=== PATIENT | male | born 1985 | race Caucasian/White ===

== ENCOUNTER 2016-09-20 23:20 | Emergency (ER) | payer SELFPAY ==
[~2016-09-20] VITALS: Ht 175.3 cm; Wt 81.6 kg
[2016-09-20 23:20] VITALS: BP 152/70
[~2016-09-20 23:20] MED LIST: NKM
[2016-09-20 23:42] LABS: ABG BASE EXCESS -6.2; ABG PCO2 52.6 mmHg (35.0-45.0)
[2016-09-20 23:43] LABS: ABG ALLEN TEST POSITIVE
[2016-09-20 23:46] LABS: BASOPHILS % (AUTO) 1.3 % (0.0-2.0); EOSINOPHILS % (AUTO) 1.8 % (0.0-3.0); LYMPHOCYTES % (AUTO) 46.3 % (20.0-45.0); MEAN CORPUSCULAR HEMOGLOBIN 32.6 PG (27.0-31.0); MEAN CORPUSCULAR HGB CONC 33.3 G/DL (32.0-36.0); MEAN CORPUSCULAR VOLUME 98 FL (80-99); MEAN PLATELET VOLUME 5.6 FL (6.5-10.1); MONOCYTES % (AUTO) 8.9 % (1.0-10.0); NEUTROPHILS % (AUTO) 41.7 % (45.0-75.0); PLATELET COUNT 209 K/UL (150-450); RED BLOOD COUNT 4.59 M/UL (4.70-6.10); WHITE BLOOD COUNT 6.6 K/UL (4.8-10.8)
[2016-09-21 00:03] LABS: ACETAMINOPHEN < 10 ug/mL (10-30); ALANINE AMINOTRANSFERASE 216 U/L (3-41); ALCOHOL < 10 mg/dL; ANION GAP 20 (5-15); ASPARTATE AMINO TRANSFERASE 140 U/L (5-40); CALCIUM 8.6 mg/dL (8.6-10.2); CARBON DIOXIDE 20 mEQ/L (20-30); CHLORIDE 100 mEQ/L (98-107); CREATININE 1.3 mg/dL (0.7-1.2); GLOMERULAR FILTRATION RATE > 60 mL/min (>60); HEMOLYSIS 7; POTASSIUM 3.4 mEQ/L (3.4-4.9); SODIUM 140 mEQ/L (135-145)
[2016-09-21 00:20] VITALS: BP 111/68
[2016-09-21 01:20] VITALS: BP 107/65
--- NOTE | 2016-09-21 01:47 | Emergency Room Report ---
History of Present Illness General Chief Complaint: Altered Level of Consciousness Source: EMS Present Illness HPI 31-year-old male presents to ED for evaluation. Patient was found laying in an Alley. Unresponsive. Pupils were dilated. Patient had apneic breathing. Patient was given Narcan and woke up. Upon arrival patient is still lethargic but is more awake. Told EMS that he used methamphetamines and other drugs. Unclear whether patient hit his head. Patient is a known to provide any additional history at this time. No aggravating or relieving factors. Denies any other associated symptoms Allergies: Coded Allergies: UNABLE TO ASSESS (Unverified , 09/20/16) Patient History Past Medical History: none Past Surgical History: none Pertinent Family History: none Social History: Denies: alcohol use, drug use, smoking Immunizations: UTD Reviewed Nursing Documentation: PMH: Agreed, PSxH: Agreed Nursing Documentation-PMH Past Medical History Deferred: Patient Unconscious Review of Systems All Other Systems: limited Physical Exam Vital Signs Date Time Temp Pulse Resp B/P Pulse Ox O2 Delivery O2 Flow Rate FiO2 09/20/16 23:06 124 20 152/70 88 15.0 09/20/16 23:20 98.8 Non-Rebreather Sp02 EP Interpretation: reviewed, abnormal General Appearance: mild distress, lethargic Head: normocephalic Eyes: bilateral eye PERRL, bilateral eye normal inspection ENT: normal ENT inspection Neck: normal inspection Respiratory: chest non-tender, lungs clear, normal breath sounds, speaking full sentences Cardiovascular #1: no edema, tachycardia Gastrointestinal: normal inspection Rectal: deferred Genitourinary: no CVA tenderness Musculoskeletal: normal inspection Neurologic: other - lethargic Psychiatric: other - lethargic Skin: normal inspection Lymphatic: normal inspection Medical Decision Making Diagnostic Impression: Primary Impression: Altered level of consciousness Additional Impression: Substance abuse ER Course Hospital Course 31-year-old M presents to ED with altered mental status. improved after narcan Differential diagnoses include: Psychosis, EtOH, drug abuse Clinical course patient placed on stretcher. 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 After initial history and physical ordered labs, NRB, IV fluids, EKG, CT brain. Labs reviewed-electrolytes okay, no leukocytosis, hemoglobin/hematocrit stable, tox panel + for multilple substances CT brain shows no acute pathology Patient observed on monitor. O2 saturations improving. switched to nasal cannula with improved O2 saturation. Patient allowed to sleep. Patient is now more awake alert oriented. can be discharged to home i. I feel this is a highly complex case requiring extensive working including EKG/Rhythm strip, Xray/CT/US, Blood/urine lab work, repeat exams while in ED, and administration of strong opiates/narcotics for pain control, admission to hospital or close patient follow up. Diagnosis -ALOC, substance abuse Stable and discharged to home. Followup with PMD. Return to ED if symptoms recur or worsen Labs Test 09/20/16 23:30 09/20/16 23:35 Arterial Blood pH 7.234 (7.350-7.450) Arterial Blood Partial Pressure CO2 52.6 mmHg (35.0-45.0) Arterial Blood Partial Pressure O2 < 64.0 mmHg (75.0-100.0) Arterial Blood HCO3 21.7 mmol/L (22.0-26.0) Arterial Blood Oxygen Saturation 74.3 % (92.0-98.0) Arterial Blood Base Excess -6.2 Justino Test Positive White Blood Count 6.6 K/UL (4.8-10.8) Red Blood Count 4.59 M/UL (4.70-6.10) Hemoglobin 15.0 G/DL (14.2-18.0) Hematocrit 44.9 % (42.0-52.0) Mean Corpuscular Volume 98 FL (80-99) Mean Corpuscular Hemoglobin 32.6 PG (27.0-31.0) Mean Corpuscular Hemoglobin Concent 33.3 G/DL (32.0-36.0) Red Cell Distribution Width 12.0 % (11.6-14.8) Platelet Count 209 K/UL (150-450) Mean Platelet Volume 5.6 FL (6.5-10.1) Neutrophils (%) (Auto) 41.7 % (45.0-75.0) Lymphocytes (%) (Auto) 46.3 % (20.0-45.0) Monocytes (%) (Auto) 8.9 % (1.0-10.0) Eosinophils (%) (Auto) 1.8 % (0.0-3.0) Basophils (%) (Auto) 1.3 % (0.0-2.0) Sodium Level 140 mEQ/L (135-145) Potassium Level 3.4 mEQ/L (3.4-4.9) Chloride Level 100 mEQ/L (98-107) Carbon Dioxide Level 20 mEQ/L (20-30) Anion Gap 20 (5-15) Blood Urea Nitrogen 11 mg/dL (7-23) Creatinine 1.3 mg/dL (0.7-1.2) Estimat Glomerular Filtration Rate > 60 mL/min (>60) Glucose Level 309 mg/dL (74-106) Calcium Level 8.6 mg/dL (8.6-10.2) Total Bilirubin 0.4 mg/dL (0.0-1.2) Aspartate Amino Transf (AST/SGOT) 140 U/L (5-40) Alanine Aminotransferase (ALT/SGPT) 216 U/L (3-41) Alkaline Phosphatase 60 U/L (40-129) Total Protein 8.0 g/dL (6.6-8.7) Albumin 4.1 g/dL (3.5-5.2) Globulin 3.9 g/dL Albumin/Globulin Ratio 1.0 (1.0-2.7) Salicylates Level < 1 mg/dL (10-30) Urine Opiates Screen Positive (NEGATIVE) Acetaminophen Level < 10 ug/mL (10-30) Urine Barbiturates Screen Negative (NEGATIVE) Phencyclidine (PCP) Screen Negative (NEGATIVE) Urine Amphetamines Screen Positive (NEGATIVE) Urine Benzodiazepines Screen Negative (NEGATIVE) Urine Cocaine Screen Negative (NEGATIVE) Urine Marijuana (THC) Screen Negative (NEGATIVE) Serum Alcohol < 10 mg/dL CT/MRI/US Diagnostic Results CT/MRI/US Diagnostic Results : Imaging Test Ordered: CT Head Impression no acute process Last Vital Signs Date Time Temp Pulse Resp B/P Pulse Ox O2 Delivery O2 Flow Rate FiO2 09/20/16 23:20 98.8 118 20 152/70 88 Non-Rebreather 15.0 Status: improved Disposition: HOME, SELF-CARE Condition: Stable Referrals: NOT CHOSEN HOWIE/,REFERRING (PCP) ODE POE M.D. Sep 21, 2016 01:47
[2016-09-21 02:20] VITALS: BP 116/68
[2016-09-21 04:20] VITALS: BP 110/60
[2016-09-21 06:20] VITALS: BP 116/64
[2016-09-21 06:37] VITALS: BP 116/64
--- NOTE | 2016-09-21 09:55 | Diagnostic Imaging Report ---
Indication: Altered mental status Technique: Contiguous 5 mm thick transaxial imaging of the head obtained in a Siemens Sensation [address] scanner. Soft tissue and bone windows generated. Total Dose length Product (DLP): [address] Dose Index Volume (CTDIvol): 70.38 mGy Comparison: none Findings: The size and configuration of the cortical sulci, basal cisterns, and ventricles are within normal limits for age. There is no mass effect, midline shift, or edema identified. There is no evidence of acute hemorrhage or abnormal intra-axial or extra-axial fluid collections. The bones and soft tissues are unremarkable. Impression: No mass effect, edema or acute bleed. [facility] has communicated the preliminary results to the Emergency Department. Their findings are largely concordant with this report. The CT scanner at [facility] is accredited by the [employer] and the scans are performed using dose optimization techniques as appropriate to a performed exam including Automatic Exposure control.
== END 2016-09-21 06:37 | disposition home or self-care (01) ==
LOC: EDBD 23:20 → EMR 23:35
DX: R41.82 Altered mental status, unspecified (principal); F19.10 Other psychoactive substance abuse, uncomplicated
CPT/HCPCS: 36415; 36600; 70450; 80053; 80300; 82803; 85025; 96360; 99284; G0480; 80329

== ENCOUNTER 2017-01-28 02:05 | Inpatient (IN) | payer SELFPAY ==
[2017-01-28] VITALS (20 sets, daily range): BP systolic 77–109; BP diastolic 33–68
[~2017-01-28] VITALS: Ht 182.9 cm; Wt 81.6 kg
[2017-01-28] MEDS ORDERED: LORazepam Inj 2mg/ml 1ml IM ONE (02:15)
[2017-01-28] MEDS ORDERED: Haloperidol 5mg/ml Inj IM ONE (03:30)
[2017-01-28 08:20] LABS: MEAN CORPUSCULAR HEMOGLOBIN 31.6 PG (27.0-31.0); MEAN CORPUSCULAR VOLUME 93 FL (80-99); MEAN PLATELET VOLUME 6.4 FL (6.5-10.1); PLATELET COUNT 126 K/UL (150-450); RED BLOOD COUNT 4.05 M/UL (4.70-6.10); RED CELL DISTRIBUTION WIDTH 11.9 % (11.6-14.8); WHITE BLOOD COUNT 5.2 K/UL (4.8-10.8)
[2017-01-28] MEDS ORDERED: UNOBMED (08:22)
[2017-01-28 08:29] LABS: ANION GAP 10 mmol/L (5-15); CALCIUM 8.4 MG/DL (8.5-10.1); CARBON DIOXIDE 22 MMOL/L (21-32); CHLORIDE 106 MMOL/L (98-107); CREATININE 2.3 MG/DL (0.55-1.30); GLOMERULAR FILTRATION RATE 33.6 mL/min (>60); POTASSIUM 3.4 MMOL/L (3.5-5.1); SODIUM 138 MMOL/L (136-145)
[2017-01-28 08:39] LABS: ALANINE AMINOTRANSFERASE 486 U/L (12-78); ALBUMIN/GLOBULIN RATIO 0.9 (1.0-2.7); ASPARTATE AMINO TRANSFERASE 587 U/L (15-37); TOTAL PROTEIN 7.4 G/DL (6.4-8.2)
[2017-01-28 08:41] LABS: BILIRUBIN,DIRECT 1.2 MG/DL (0.0-0.3)
[2017-01-28 08:42] LABS: BAND NEUTROPHILS % (MANUAL) 10 % (0-8); LYMPHOCYTES % (MANUAL) 5 % (20-45); NEUTROPHILS % (MANUAL) 83 % (45-75); TOTAL CELLS COUNTED 100
[2017-01-28 08:43] LABS: BASOPHILS % (MANUAL) 0 % (0-2); EOSINOPHILS % (MANUAL) 0 % (0-3); PLATELET ESTIMATE DECREASED; PLATELET MORPHOLOGY NORMAL
--- NOTE | 2017-01-28 08:59 | Diagnostic Imaging Report ---
Indication: AMS Technique: Continuous helical CT scanning of the head was performed without intravenous contrast material. Axial and coronal 5 mm sections were generated. Dose: Total Dose Length Product - DLP [address] Dose Index - CTDIvol(s) 70.38 mGy. Automated exposure control was utilized for dose reduction. Comparison:09/21/2016 Findings: Study is degraded by motion. The ventricular system is normal in size and configuration. There is no shift of midline structures. No abnormal extra-axial fluid collections are noted. There is no evidence of intracerebral bleeding. No other abnormal high or low density areas are noted within the brain. There is a mucoperiosteal thickening in the right maxillary sinus. Impression: Inflammatory change in the right maxillary sinus. Otherwise negative CT scan of the head without contrast material. The CT scanner at [facility] is accredited by the [employer] and the scans are performed using protocols designed to limit radiation exposure to as low as reasonably achievable to attain images of sufficient resolution adequate for diagnostic evaluation.
[2017-01-28 10:08] LABS: APPEARANCE,URINE SLIGHTLY CLOUDY; KETONES,URINE NEGATIVE (NEGATIVE); LEUKOCYTE ESTERASE ,URINE NEGATIVE (NEGATIVE); NITRITE,URINE NEGATIVE (NEGATIVE); PH,URINE 5 (4.5-8.0); PROTEIN,URINE 3+ (NEGATIVE); UROBILINOGEN,URINE NORMAL MG/DL (0.0-1.0)
[2017-01-28 10:10] LABS: ALCOHOL < 3 mg/dL
[2017-01-28 10:28] LABS: AMORPHOUS SEDIMENT,UR MANY /LPF; BACTERIA,URINE FEW /HPF; SQUAMOUS EPITHELIAL CELL,UR OCCASIONAL /LPF (NONE/OCC)
[2017-01-28 11:24] LABS: OSMOLALITY SERUM 298 mOsm/kg (297-317)
--- NOTE | 2017-01-28 11:31 | Diagnostic Imaging Report ---
Indication: Abdominal pain Technique: Continuous helical scanning was performed without any contrast material from the diaphragms through the pelvis due to elevated creatinine. Axial, sagittal, and coronal images were generated. Dose: Total Dose Length Product - DLP [address] Dose Index - CTDIvol(s) 11.36 mGy. Automated exposure control was utilized for dose reduction. Comparison: None Findings: The liver is unremarkable. The spleen is enlarged. The gallbladder is surgically absent. The pancreas is grossly normal. The right adrenal gland appears prominent but difficult to evaluate due to lack of contrast. Left adrenal gland is grossly normal. The kidneys are unremarkable. There are no calculi in the kidneys. Aorta and inferior vena cava are normal caliber. There is some increased density in the pericolonic fat on the right. There appears to be some thickening of the wall the colon and the sigmoid. However, the colon is not distended. The bladder is unremarkable. Prostate and seminal vesicles are normal. No gross fluid collections. The appendix is not identified. There is basilar atelectasis. Impression: Lack of any contrast material considerably limits evaluation in this patient. Possible thickening of the colonic wall versus underdistention in the region of the sigmoid colon. Inflammatory disease is not excluded. Increased density in pericolonic fat in the right side of the abdomen. This could represent inflammatory change but this is not certain. Previous cholecystectomy. Splenomegaly. Basilar atelectasis. The CT scanner at [facility] is accredited by the [employer] and the scans are performed using protocols designed to limit radiation exposure to as low as reasonably achievable to attain images of sufficient resolution adequate for diagnostic evaluation.
--- NOTE | 2017-01-28 14:21 | Pulmonolgy Critical Care Note ---
Critical Care - Asmt/Plan Problems: (1) Acute encephalopathy (2) Rhabdomyolysis (3) Renal failure Assessment/Plan: iv fluids check electrolytes renal w/u ICD monitoring check cpk dvt prophylaxis stress ulcer prophylaxis Critical Care - Objective Last 24 Hour Vital Signs Date Time Temp Pulse Resp B/P (MAP) Pulse Ox O2 Delivery O2 Flow Rate FiO2 01/28/17 14:00 93 23 87/43 98 Room Air 01/28/17 13:14 89 01/28/17 13:00 97.9 93 26 109/68 98 Room Air 01/28/17 12:49 91 16 83/46 98 Room Air 01/28/17 12:00 98.8 91 21 82/54 98 Room Air 01/28/17 11:00 99.2 93 25 86/42 97 Room Air 01/28/17 10:19 98.3 99 22 93/39 100 Room Air 01/28/17 09:00 98.0 103 26 96/46 97 Room Air 01/28/17 08:00 98.1 98 24 92/36 98 Room Air 01/28/17 07:10 100 26 Room Air 01/28/17 07:10 97.9 100 26 86/46 97 Room Air 01/28/17 06:28 104 22 103/51 99 Room Air 01/28/17 04:28 118 19 106/56 98 Room Air 01/28/17 02:28 100.0 124 20 92/54 98 Room Air 01/28/17 02:02 100.0 124 20 92/54 98 Room Air Status: obtunded Condition: critical HEENT: atraumatic Lungs: clear Abdomen: non-tender, feeding tube Extremities: no C/C/E Accucheck: 142 Critical Care - Subjective ROS Limited/Unobtainable: Yes ICU Day: 1 Interval Events: Seen in ER, obtunded, looks comfortable I&O: Intake and Output 01/28/17 01/29/17 19:00 07:00 Intake Total 2150 ml Balance 2150 ml Intake Oral 0 ml IV Total 2150 ml Labs: Laboratory Tests Test 01/28/17 08:00 01/28/17 09:25 01/28/17 09:42 White Blood Count 5.2 K/UL (4.8-10.8) Red Blood Count 4.05 M/UL (4.70-6.10) L Hemoglobin 12.8 G/DL (14.2-18.0) L Hematocrit 37.7 % (42.0-52.0) L Mean Corpuscular Volume 93 FL (80-99) Mean Corpuscular Hemoglobin 31.6 PG (27.0-31.0) H Mean Corpuscular Hemoglobin Concent 34.0 G/DL (32.0-36.0) Red Cell Distribution Width 11.9 % (11.6-14.8) Platelet Count 126 K/UL (150-450) L Mean Platelet Volume 6.4 FL (6.5-10.1) L Neutrophils (%) (Auto) % (45.0-75.0) Lymphocytes (%) (Auto) % (20.0-45.0) Monocytes (%) (Auto) % (1.0-10.0) Eosinophils (%) (Auto) % (0.0-3.0) Basophils (%) (Auto) % (0.0-2.0) Differential Total Cells Counted 100 Neutrophils % (Manual) 83 % (45-75) H Lymphocytes % (Manual) 5 % (20-45) L Monocytes % (Manual) 2 % (1-10) Eosinophils % (Manual) 0 % (0-3) Basophils % (Manual) 0 % (0-2) Band Neutrophils 10 % (0-8) H Platelet Estimate Decreased L Platelet Morphology Normal Sodium Level 138 MMOL/L (136-145) Potassium Level 3.4 MMOL/L (3.5-5.1) L Chloride Level 106 MMOL/L (98-107) Carbon Dioxide Level 22 MMOL/L (21-32) Anion Gap 10 mmol/L (5-15) Blood Urea Nitrogen 32 mg/dL (7-18) H Creatinine 2.3 MG/DL (0.55-1.30) H Estimat Glomerular Filtration Rate 33.6 mL/min (>60) Glucose Level 118 MG/DL (74-106) H Osmolality 298 mOsm/kg (297-317) Calcium Level 8.4 MG/DL (8.5-10.1) L Total Bilirubin 1.8 MG/DL (0.2-1.0) H Direct Bilirubin 1.2 MG/DL (0.0-0.3) H Aspartate Amino Transf (AST/SGOT) 587 U/L (15-37) H Alanine Aminotransferase (ALT/SGPT) 486 U/L (12-78) H Alkaline Phosphatase 96 U/L (46-116) Total Creatine Kinase 548 U/L (26-308) H Troponin I 0.007 ng/mL (0.000-0.056) Total Protein 7.4 G/DL (6.4-8.2) Albumin 3.4 G/DL (3.4-5.0) Globulin 4.0 g/dL Albumin/Globulin Ratio 0.9 (1.0-2.7) L Serum Alcohol < 3 mg/dL Acetone Level Negative (NEGATIVE) Lactic Acid Level 1.30 mmol/L (0.66-2.22) Urine Color Yellow Urine Appearance Slightly cloudy Urine pH 5 (4.5-8.0) Urine Specific [place] 1.025 (1.005-1.035) Urine Protein 3+ (NEGATIVE) H Urine Glucose (UA) Negative (NEGATIVE) Urine Ketones Negative (NEGATIVE) Urine Occult Blood 1+ (NEGATIVE) H Urine Nitrite Negative (NEGATIVE) Urine Bilirubin Negative (NEGATIVE) Urine Urobilinogen Normal MG/DL (0.0-1.0) Urine Leukocyte Esterase Negative (NEGATIVE) Urine RBC 2-4 /HPF (0 - 0) H Urine WBC 2-4 /HPF (0 - 0) Urine Squamous Epithelial Cells Occasional /LPF Urine Amorphous Sediment Many /LPF (NONE) H Urine Bacteria Few /HPF (NONE) Urine Opiates Screen Negative (NEGATIVE) Urine Barbiturates Screen Negative (NEGATIVE) Phencyclidine (PCP) Screen Negative (NEGATIVE) Urine Amphetamines Screen Positive (NEGATIVE) H Urine Benzodiazepines Screen Negative (NEGATIVE) Urine Cocaine Screen Negative (NEGATIVE) Urine Marijuana (THC) Screen Negative (NEGATIVE) NAYELY MCMULLEN Jan 28, 2017 14:21
[2017-01-28] MEDS: Pantoprazole Inj IV SCH (14:46)
[2017-01-28] MEDS ORDERED: Tubing IV Secondary IV ONE (15:50)
--- NOTE | 2017-01-28 16:15 | History and Physical Report ---
DATE OF ADMISSION: 01/28/2017 CHIEF COMPLAINT: The patient is a 31-year-old white male, who presents with chief complaint of altered mental status. HISTORY OF PRESENT ILLNESS: Most of the history and physical is obtained from the patient's chart as the patient is barely arousable. According to notes from the emergency room, the patient was found in [place] in the [place]. The patient was fairly lethargic. The patient was transferred to [facility]. The patient was found to have elevated CPK. The patient was found to be in renal failure. The patient was admitted for renal failure and rhabdomyolysis. REVIEW OF SYSTEMS: Unable to assess secondary to patient's mental status. PAST MEDICAL HISTORY: Unknown. PAST SURGICAL HISTORY: Significant for cholecystectomy by CT of the abdomen. CURRENT MEDICATIONS: Unknown. ALLERGIES: Penicillin. SOCIAL HISTORY: Unknown. PHYSICAL EXAMINATION: VITAL SIGNS: Temperature 98.0 to 99.2, respirations tachypneic at 16 to 26, pulse tachycardic at 91 to 103, blood pressure hypotensive at 82 to 96/39 to 54. GENERAL: The patient is well developed, disheveled, filthy, white male, in no apparent distress. The patient is lethargic, but arousable. HEENT: Eyes, pupils are equal and responsive to light and accommodation. Extraocular movements are intact. NECK: Supple without lymphadenopathy. CHEST: Lungs are clear to auscultation bilaterally without wheezes or rales. CARDIOVASCULAR: Tachycardic, regular rhythm with S1 and S2 normal without murmurs, rubs, or gallops. ABDOMEN: Soft, nontender, nondistended. Positive bowel sounds. No evidence of hepatosplenomegaly. EXTREMITIES: Negative for clubbing, cyanosis, or edema. RECTAL/GENITAL: Not performed. NEUROLOGIC: Cranial nerves II through XII are grossly intact without focal deficits. LABORATORY STUDIES: WBC 5.2, hemoglobin 12.8, hematocrit 37.7, platelets 126,000. Sodium 138, potassium decreased to 3.4, chloride 106, CO2 22, BUN 32, creatinine 2.3, glucose 118. Liver function tests elevated with AST of 587, ALT of 486, alkaline phosphatase normal at 96, total CPK elevated at 548. CT scan of the abdomen revealed thickening of sigmoid colon consistent with colitis. An EKG was reported as normal sinus rhythm at approximately 100 beats per minute. No ST changes or Q-waves were noted. Urine drug scree is positive for methamphetamine. ASSESSMENT: This is a 31-year-old white male with, 1. Altered mental status. 2. Dehydration. 3. Rhabdomyolysis. 4. Renal failure. 5. Elevated liver function test. 6. Methamphetamine abuse. TREATMENT: 1. Altered mental status. This may be secondary to severe dehydration versus methamphetamine abuse. A Psychiatric consultation will be obtained with Dr. Cabrera. 2. Dehydration/rhabdomyolysis/renal failure. A Nephrology consultation will be obtained Dr. Antonio Rothman. The patient is currently receiving intravenous fluids. The patient received 3 L of normal saline in the emergency room. Serial CPK levels will be performed. 3. Elevated liver function tests. This may be secondary to hepatitis, and the patient appears to use methamphetamine intravenously. A Gastroenterology consultation has been obtained with Dr. Stevenson Plata. 4. Methamphetamine dependence. A Psychiatric consultation will be obtained with Dr. Cabrera. Suhail Manzo M.D. DR: Earnest JOB#: [id number] CC:
[2017-01-28 17:03] LABS: ANION GAP 13 mmol/L (5-15); CALCIUM 7.4 MG/DL (8.5-10.1); CARBON DIOXIDE 20 MMOL/L (21-32); CHLORIDE 108 MMOL/L (98-107); GLOMERULAR FILTRATION RATE 39.4 mL/min (>60); LACTATE DEHYDROGENASE 391 U/L (81-234); POTASSIUM 4.1 MMOL/L (3.5-5.1); SODIUM 141 MMOL/L (136-145)
--- NOTE | 2017-01-28 17:16 | Emergency Room Report ---
History of Present Illness General Chief Complaint: Substance Abuse Source: Patient, Medical Record Present Illness HPI The patient is a 31-year-old male brought in by EMS after altered mental status. Patient was noted to have been somewhat agitated. Patient had prior history of substance abuse. He is markedly limited by patient's mental status. The patient was noted to have been seen by Dr La. See Dr. 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 Review of Systems All Other Systems: negative except mentioned in HPI Physical Exam Vital Signs Date Time Temp Pulse Resp B/P (MAP) Pulse Ox O2 Delivery O2 Flow Rate FiO2 01/28/17 02:02 100.0 124 20 92/54 98 Room Air General Appearance: alert, mild distress ENT: dry mucus membranes Neck: full range of motion Respiratory: lungs clear, other - Kussmaul respirations Cardiovascular #1: regular rate, rhythm Gastrointestinal: normal bowel sounds, non tender, no mass Musculoskeletal: normal inspection, back normal Neurologic: other - somnolent, motor weakness Medical Decision Making Diagnostic Impression: Primary Impression: Acute kidney injury Additional Impression: Substance abuse ER Course The patient presented for altered mental status.Differential diagnosis included but was not limited to ischemic stroke, subarachnoid hemorrhage, hypoglycemia, spinal cord injury, neurodegenerative disorder, urinary tract infection, hypoxemia.. Because of complexity of patient's case laboratory testing and imaging studies were ordered. Laboratory testing was notable for elevated BUN and creatinine compared patient' s recent previous. The patient was noted to have evidence of acute the muscle injury. Patient started on IV fluids. The patient noted be consistently hypotensive.Dr. Samir [place] was contacted for inpatient management due to panel physician Labs Test 01/28/17 00:00 01/28/17 08:00 01/28/17 09:25 01/28/17 09:42 White Blood Count 5.2 K/UL (4.8-10.8) Red Blood Count 4.05 M/UL (4.70-6.10) Hemoglobin 12.8 G/DL (14.2-18.0) Hematocrit 37.7 % (42.0-52.0) Mean Corpuscular Volume 93 FL (80-99) Mean Corpuscular Hemoglobin 31.6 PG (27.0-31.0) Mean Corpuscular Hemoglobin Concent 34.0 G/DL (32.0-36.0) Red Cell Distribution Width 11.9 % (11.6-14.8) Platelet Count 126 K/UL (150-450) Mean Platelet Volume 6.4 FL (6.5-10.1) Neutrophils (%) (Auto) % (45.0-75.0) Lymphocytes (%) (Auto) % (20.0-45.0) Monocytes (%) (Auto) % (1.0-10.0) Eosinophils (%) (Auto) % (0.0-3.0) Basophils (%) (Auto) % (0.0-2.0) Differential Total Cells Counted 100 Neutrophils % (Manual) 83 % (45-75) Lymphocytes % (Manual) 5 % (20-45) Monocytes % (Manual) 2 % (1-10) Eosinophils % (Manual) 0 % (0-3) Basophils % (Manual) 0 % (0-2) Band Neutrophils 10 % (0-8) Platelet Estimate Decreased Platelet Morphology Normal Osmolality 298 mOsm/kg (297-317) Total Bilirubin 1.8 MG/DL (0.2-1.0) Direct Bilirubin 1.2 MG/DL (0.0-0.3) Aspartate Amino Transf (AST/SGOT) 587 U/L (15-37) Alanine Aminotransferase (ALT/SGPT) 486 U/L (12-78) Alkaline Phosphatase 96 U/L (46-116) Troponin I 0.007 ng/mL (0.000-0.056) Total Protein 7.4 G/DL (6.4-8.2) Albumin 3.4 G/DL (3.4-5.0) Globulin 4.0 g/dL Albumin/Globulin Ratio 0.9 (1.0-2.7) Serum Alcohol < 3 mg/dL Acetone Level Negative (NEGATIVE) Lactic Acid Level 1.30 mmol/L (0.66-2.22) Urine Color Yellow Urine Appearance Slightly cloudy Urine pH 5 (4.5-8.0) Urine Specific [place] 1.025 (1.005-1.035) Urine Protein 3+ (NEGATIVE) Urine Glucose (UA) Negative (NEGATIVE) Urine Ketones Negative (NEGATIVE) Urine Occult Blood 1+ (NEGATIVE) Urine Nitrite Negative (NEGATIVE) Urine Bilirubin Negative (NEGATIVE) Urine Urobilinogen Normal MG/DL (0.0-1.0) Urine Leukocyte Esterase Negative (NEGATIVE) Urine RBC 2-4 /HPF (0 - 0) Urine WBC 2-4 /HPF (0 - 0) Urine Squamous Epithelial Cells Occasional /LPF Urine Amorphous Sediment Many /LPF (NONE) Urine Bacteria Few /HPF (NONE) Urine Opiates Screen Negative (NEGATIVE) Urine Barbiturates Screen Negative (NEGATIVE) Phencyclidine (PCP) Screen Negative (NEGATIVE) Urine Amphetamines Screen Positive (NEGATIVE) Urine Benzodiazepines Screen Negative (NEGATIVE) Urine Cocaine Screen Negative (NEGATIVE) Urine Marijuana (THC) Screen Negative (NEGATIVE) Test 01/28/17 16:40 Sodium Level 141 MMOL/L (136-145) Potassium Level 4.1 MMOL/L (3.5-5.1) Chloride Level 108 MMOL/L (98-107) Carbon Dioxide Level 20 MMOL/L (21-32) Anion Gap 13 mmol/L (5-15) Blood Urea Nitrogen 38 mg/dL (7-18) Creatinine 2.0 MG/DL (0.55-1.30) Estimat Glomerular Filtration Rate 39.4 mL/min (>60) Glucose Level 101 MG/DL (74-106) Calcium Level 7.4 MG/DL (8.5-10.1) Lactate Dehydrogenase 391 U/L (81-234) HIV (1&2) Antibody Rapid Preliminary positive EKG Diagnostic Results Rate: normal Rhythm: NSR ST Segments: no acute changes Last Vital Signs Date Time Temp Pulse Resp B/P (MAP) Pulse Ox O2 Delivery O2 Flow Rate FiO2 01/28/17 16:00 97 01/28/17 16:00 98.9 23 81/34 98 Room Air Status: unchanged Disposition: ADMITTED INPATIENT Condition: Serious Referrals: NOT CHOSEN HOWIE/,REFERRING (PCP) Sridhar Fuller Jan 28, 2017 17:16
[2017-01-28 17:59] LABS: URIC ACID 8.5 MG/DL (2.6-7.2)
[2017-01-28] MEDS: Heparin 5000 units/ml inj SUBQ SCH (20:57)
[2017-01-28] MEDS: DOPamine 400mg/250ml 250 ML IV SCH (23:50)
[2017-01-29] VITALS (44 sets, daily range): BP systolic 84–115; BP diastolic 33–81
[2017-01-29 04:46] LABS: BASOPHILS % (AUTO) 0.4 % (0.0-2.0); EOSINOPHILS % (AUTO) 0.1 % (0.0-3.0); LYMPHOCYTES % (AUTO) 7.1 % (20.0-45.0); MEAN CORPUSCULAR HEMOGLOBIN 33.6 PG (27.0-31.0); MEAN CORPUSCULAR HGB CONC 35.8 G/DL (32.0-36.0); MEAN CORPUSCULAR VOLUME 94 FL (80-99); MEAN PLATELET VOLUME 6.3 FL (6.5-10.1); MONOCYTES % (AUTO) 7.7 % (1.0-10.0); NEUTROPHILS % (AUTO) 84.7 % (45.0-75.0); PLATELET COUNT 123 K/UL (150-450); RED BLOOD COUNT 3.47 M/UL (4.70-6.10); RED CELL DISTRIBUTION WIDTH 12.6 % (11.6-14.8); WHITE BLOOD COUNT 16.7 K/UL (4.8-10.8)
[2017-01-29 05:00] LABS: CRP QUANT 22.1 mg/dL (0.00-0.90); MAGNESIUM 1.5 MG/DL (1.8-2.4); PHOSPHORUS 2.4 MG/DL (2.5-4.9)
[2017-01-29 05:07] LABS: ALANINE AMINOTRANSFERASE 324 U/L (12-78); ALBUMIN/GLOBULIN RATIO 0.7 (1.0-2.7); ANION GAP 5 mmol/L (5-15); ASPARTATE AMINO TRANSFERASE 239 U/L (15-37); BILIRUBIN,DIRECT 0.3 MG/DL (0.0-0.3); CARBON DIOXIDE 22 MMOL/L (21-32); CHLORIDE 113 MMOL/L (98-107); CKMB 20.8 NG/ML (0.0-3.6); CREATININE 1.4 MG/DL (0.55-1.30); GLOMERULAR FILTRATION RATE 59.5 mL/min (>60); POTASSIUM 4.1 MMOL/L (3.5-5.1); SODIUM 140 MMOL/L (136-145); TOTAL PROTEIN 6.5 G/DL (6.4-8.2)
[2017-01-29 05:37] LABS: APPEARANCE,URINE CLEAR; KETONES,URINE NEGATIVE (NEGATIVE); LEUKOCYTE ESTERASE ,URINE 1+ (NEGATIVE); NITRITE,URINE NEGATIVE (NEGATIVE); PH,URINE 5 (4.5-8.0); PROTEIN,URINE 2+ (NEGATIVE); UROBILINOGEN,URINE 1 MG/DL (0.0-1.0)
[2017-01-29 05:52] LABS: BACTERIA,URINE FEW /HPF; COARSE GRANULAR CASTS,URINE 0-2 /LPF; FINE GRANULAR CASTS,URINE 0-2 /LPF; SQUAMOUS EPITHELIAL CELL,UR FEW /LPF (NONE/OCC)
--- NOTE | 2017-01-29 07:14 | General Progress Note ---
Assessment/Plan Problem List: (1) Elevated LFTs ICD Codes: R79.89 - Other specified abnormal findings of blood chemistry SNOMED: 488905125, 293048914 (2) Acute kidney injury ICD Codes: N17.9 - Acute kidney failure, unspecified SNOMED: 33015342 (3) Substance abuse ICD Codes: F19.10 - Other psychoactive substance abuse, uncomplicated SNOMED: 84089424 (4) Rhabdomyolysis ICD Codes: M62.82 - Rhabdomyolysis SNOMED: 797430014 Assessment/Plan supportive care fu labs fu LFTS fu nephrology Subjective ROS Limited/Unobtainable: No Allergies: Coded Allergies: PENICILLINS (Unverified Allergy, Unknown, 01/28/17) Objective Last 24 Hour Vital Signs Date Time Temp Pulse Resp B/P (MAP) Pulse Ox O2 Delivery O2 Flow Rate FiO2 01/29/17 07:00 95 29 103/50 97 Room Air 01/29/17 06:30 98 23 97/50 98 Room Air 01/29/17 06:15 94 23 94/49 98 Room Air 01/29/17 06:00 90 21 95/50 98 Room Air 01/29/17 05:45 91 20 106/44 98 Room Air 01/29/17 05:36 107/49 01/29/17 05:30 96 18 107/49 97 Room Air 01/29/17 05:15 96 18 98/45 97 Room Air 01/29/17 05:00 92 19 92/33 96 Room Air 01/29/17 05:00 92/33 01/29/17 04:45 95 21 105/43 97 Room Air 01/29/17 04:30 95 20 106/44 96 Room Air 01/29/17 04:15 93 20 100/45 95 Room Air 01/29/17 04:00 112/53 01/29/17 04:00 98 01/29/17 04:00 98.4 99 18 112/53 96 Room Air 01/29/17 03:45 94 18 101/39 95 Room Air 01/29/17 03:30 98 19 105/45 96 Room Air 01/29/17 03:15 100 19 90/54 95 Room Air 01/29/17 03:00 99 19 90/50 94 Room Air 01/29/17 03:00 90/50 01/29/17 02:45 103 17 106/47 97 Room Air 01/29/17 02:30 100 14 98/47 95 Room Air 01/29/17 02:15 97 20 84/52 95 Room Air 01/29/17 02:00 97/45 01/29/17 02:00 100 21 97/45 98 Room Air 01/29/17 01:45 97 19 88/47 98 Room Air 01/29/17 01:30 100 19 93/38 97 Room Air 01/29/17 01:15 99 22 92/48 97 Room Air 01/29/17 01:00 100 21 97/44 97 Room Air 01/29/17 01:00 95/41 01/29/17 00:45 97 20 95/41 96 Room Air 01/29/17 00:30 97 22 88/45 98 Room Air 01/29/17 00:15 96 23 91/43 98 Room Air 01/29/17 00:04 87/42 01/29/17 00:00 98.1 95 18 87/42 98 Room Air 01/29/17 00:00 88 01/28/17 23:50 85/38 01/28/17 23:00 89 20 89/39 100 Room Air 01/28/17 22:00 88 23 89/33 100 Room Air 01/28/17 21:00 86 24 77/41 99 Room Air 01/28/17 20:00 99.0 91 24 87/37 98 Room Air 01/28/17 20:00 91 01/28/17 19:00 94 24 82/38 100 Room Air 01/28/17 18:00 90 23 81/41 95 Room Air 01/28/17 17:00 91 22 83/36 99 Room Air 01/28/17 16:00 97 01/28/17 16:00 98.9 96 23 81/34 98 Room Air 01/28/17 15:00 96 23 87/39 96 Room Air 01/28/17 14:00 93 23 87/43 98 Room Air 01/28/17 13:14 89 01/28/17 13:00 97.9 93 26 109/68 98 Room Air 01/28/17 12:49 91 16 83/46 98 Room Air 01/28/17 12:00 98.8 91 21 82/54 98 Room Air 01/28/17 11:00 99.2 93 25 86/42 97 Room Air 01/28/17 10:19 98.3 99 22 93/39 100 Room Air 01/28/17 09:00 98.0 103 26 96/46 97 Room Air 01/28/17 08:00 98.1 98 24 92/36 98 Room Air Laboratory Tests 01/28/17 08:00: White Blood Count 5.2, Red Blood Count 4.05L, Hemoglobin 12.8L, Hematocrit 37.7L , Mean Corpuscular Volume 93, Mean Corpuscular Hemoglobin 31.6H, Mean Corpuscular Hemoglobin Concent 34.0, Red Cell Distribution Width 11.9, Platelet Count 126L, Mean Platelet Volume 6.4L, Neutrophils (%) (Auto) , Lymphocytes (%) (Auto) , Monocytes (%) (Auto) , Eosinophils (%) (Auto) , Basophils (%) (Auto) , Differential Total Cells Counted 100, Neutrophils % (Manual) 83H, Lymphocytes % (Manual) 5L, Monocytes % (Manual) 2, Eosinophils % (Manual) 0, Basophils % ( Manual) 0, Band Neutrophils 10H, Platelet Estimate DecreasedL, Platelet Morphology Normal, Sodium Level 138, Potassium Level 3.4L, Chloride Level 106, Carbon Dioxide Level 22, Anion Gap 10, Blood Urea Nitrogen 32H, Creatinine 2.3H , Estimat Glomerular Filtration Rate 33.6, Glucose Level 118H, Osmolality 298, Calcium Level 8.4L, Total Bilirubin 1.8H, Direct Bilirubin 1.2H, Aspartate Amino Transf (AST/SGOT) 587H, Alanine Aminotransferase (ALT/SGPT) 486H, Alkaline Phosphatase 96, Total Creatine Kinase 548H, Troponin I 0.007, Total Protein 7.4, Albumin 3.4, Globulin 4.0, Albumin/Globulin Ratio 0.9L, Serum Alcohol < 3, Acetone Level Negative 01/28/17 09:25: Lactic Acid Level 1.30 01/28/17 09:42: Urine Color Yellow, Urine Appearance Slightly cloudy, Urine pH 5, Urine Specific [place] 1.025, Urine Protein 3+H, Urine Glucose (UA) Negative, Urine Ketones Negative, Urine Occult Blood 1+H, Urine Nitrite Negative, Urine Bilirubin Negative, Urine Urobilinogen Normal, Urine Leukocyte Esterase Negative , Urine RBC 2-4H, Urine WBC 2-4, Urine Squamous Epithelial Cells Occasional, Urine Amorphous Sediment ManyH, Urine Bacteria Few, Urine Opiates Screen Negative, Urine Barbiturates Screen Negative, Phencyclidine (PCP) Screen Negative, Urine Amphetamines Screen PositiveH, Urine Benzodiazepines Screen Negative, Urine Cocaine Screen Negative, Urine Marijuana (THC) Screen Negative 01/28/17 16:40: Sodium Level 141, Potassium Level 4.1, Chloride Level 108H, Carbon Dioxide Level 20L, Anion Gap 13, Blood Urea Nitrogen 38H, Creatinine 2.0H, Estimat Glomerular Filtration Rate 39.4, Glucose Level 101, Calcium Level 7.4L, Total Creatine Kinase 1527H, Uric Acid 8.5H, Lactate Dehydrogenase 391H, Hepatitis A IgM Antibody [Pending], Hepatitis B Surface Antigen [Pending], Hepatitis B Core IgM Antibody [Pending], Hepatitis C Antibody [Pending], HIV (1&2) Antibody Rapid Preliminary positiveH 01/29/17 02:30: Urine Color Yellow, Urine Appearance Clear, Urine pH 5, Urine Specific [place] 1.020, Urine Protein 2+H, Urine Glucose (UA) Negative, Urine Ketones Negative, Urine Occult Blood 2+H, Urine Nitrite Negative, Urine Bilirubin Negative, Urine Urobilinogen 1H, Urine Leukocyte Esterase 1+H, Urine RBC 2-4H, Urine WBC 2-4, Urine Squamous Epithelial Cells Few, Urine Bacteria Few, Urine Fine Granular Casts 0-2H, Urine Coarse Granular Casts 0-2H, Urine Sperm Few, Urine Eosinophils [Pending], Urine Random Sodium 27, Urine Potassium Timed 109H 01/29/17 04:15: White Blood Count 16.7#H, Red Blood Count 3.47L, Hemoglobin 11.7L, Hematocrit 32.6L, Mean Corpuscular Volume 94, Mean Corpuscular Hemoglobin 33.6H, Mean Corpuscular Hemoglobin Concent 35.8, Red Cell Distribution Width 12.6, Platelet Count 123L, Mean Platelet Volume 6.3L, Neutrophils (%) (Auto) 84.7H, Lymphocytes (%) (Auto) 7.1L, Monocytes (%) (Auto) 7.7, Eosinophils (%) (Auto) 0.1, Basophils (%) (Auto) 0.4, Erythrocyte Sedimentation Rate 56H, Sodium Level 140, Potassium Level 4.1, Chloride Level 113H, Carbon Dioxide Level 22, Anion Gap 5, Blood Urea Nitrogen 35H, Creatinine 1.4H, Estimat Glomerular Filtration Rate 59.5, Glucose Level 94, Calcium Level 7.0L, Phosphorus Level 2.4L, Magnesium Level 1.5L, Total Bilirubin 0.8, Direct Bilirubin 0.3, Aspartate Amino Transf (AST/SGOT) 239H, Alanine Aminotransferase (ALT/SGPT) 324H, Alkaline Phosphatase 64, Total Creatine Kinase 1925H, Creatine Kinase MB 20.8H, Creatine Kinase MB Relative Index 1.0, C-Reactive Protein, Quantitative 22.1H, Total Protein 6.5, Albumin 2.6L, Globulin 3.9, Albumin/Globulin Ratio 0.7L Height (Feet): 6 Height (Inches): 6.00 Weight (Pounds): 170 General Appearance: WD/WN EENT: normal ENT inspection Neck: supple Cardiovascular: normal rate Respiratory/Chest: lungs clear Abdomen: normal bowel sounds, non tender, soft, no organomegaly Extremities: non-tender TREY NUÑEZ Jan 29, 2017 07:14
[2017-01-29] MEDS: Pantoprazole Inj IV SCH (08:32)
[2017-01-29] MEDS: Heparin 5000 units/ml inj SUBQ SCH ×2 (08:34→20:35)
--- NOTE | 2017-01-29 08:57 | Consultation ---
Consult Note Consult Note asked to eval for renal failure- The patient is a 31-year-old male brought in by EMS after altered mental status. Patient was noted to have been somewhat agitated. Patient had prior history of substance abuse. He is markedly limited by patient's mental status. The patient was noted to have been seen by Dr La. See Dr. La history of present illness Allergies: Coded Allergies: PENICILLINS (Unverified Allergy, Unknown, 01/28/17) seen in ICU- Discussed with RN data reviewed Assessment/Plan 1. Altered mental status. multifactorial 2. Dehydration. 3. Rhabdomyolysis. 4. Renal failure. Cr lowering 5. Elevated liver function test. likely due to Rhabdo 6. Methamphetamine abuse. Vigorous hydration monitor renal parameters and Avoid nephrotoxics JOSE EDWARDS Jan 29, 2017 08:57
[2017-01-29] MEDS: D5 1/2NS 1,000 ML IV SCH ×3 (09:36→22:40)
--- NOTE | 2017-01-29 10:22 | Pulmonolgy Critical Care Note ---
Critical Care - Asmt/Plan Problems: (1) Acute encephalopathy (2) Rhabdomyolysis (3) Renal failure Cardiac: continue to monitor HR/BP Renal: F/U I&O, keep IV fluid Infectious Disease: add antibiotics Gastrointestinal: start feedings Endocrine: monitor blood sugar Hematologic: monitor H/H Neurologic: PRN Ativan Affect: PRN ativan Prophylaxis: Protonix Notes Reviewed: neuro, other - Neuro and psych consult requested. Discussed with: nurses, consultants Critical Care - Objective Last 24 Hour Vital Signs Date Time Temp Pulse Resp B/P (MAP) Pulse Ox O2 Delivery O2 Flow Rate FiO2 01/29/17 09:00 94 16 100/48 97 Room Air 01/29/17 08:00 92 01/29/17 08:00 98.5 93 20 106/49 98 Room Air 01/29/17 07:00 95 29 103/50 97 Room Air 01/29/17 06:30 98 23 97/50 98 Room Air 01/29/17 06:15 94 23 94/49 98 Room Air 01/29/17 06:00 90 21 95/50 98 Room Air 01/29/17 05:45 91 20 106/44 98 Room Air 01/29/17 05:36 107/49 01/29/17 05:30 96 18 107/49 97 Room Air 01/29/17 05:15 96 18 98/45 97 Room Air 01/29/17 05:00 92 19 92/33 96 Room Air 01/29/17 05:00 92/33 01/29/17 04:45 95 21 105/43 97 Room Air 01/29/17 04:30 95 20 106/44 96 Room Air 01/29/17 04:15 93 20 100/45 95 Room Air 01/29/17 04:00 112/53 01/29/17 04:00 98 01/29/17 04:00 98.4 99 18 112/53 96 Room Air 01/29/17 03:45 94 18 101/39 95 Room Air 01/29/17 03:30 98 19 105/45 96 Room Air 01/29/17 03:15 100 19 90/54 95 Room Air 01/29/17 03:00 99 19 90/50 94 Room Air 01/29/17 03:00 90/50 01/29/17 02:45 103 17 106/47 97 Room Air 01/29/17 02:30 100 14 98/47 95 Room Air 01/29/17 02:15 97 20 84/52 95 Room Air 01/29/17 02:00 97/45 01/29/17 02:00 100 21 97/45 98 Room Air 01/29/17 01:45 97 19 88/47 98 Room Air 01/29/17 01:30 100 19 93/38 97 Room Air 01/29/17 01:15 99 22 92/48 97 Room Air 01/29/17 01:00 100 21 97/44 97 Room Air 01/29/17 01:00 95/41 01/29/17 00:45 97 20 95/41 96 Room Air 01/29/17 00:30 97 22 88/45 98 Room Air 01/29/17 00:15 96 23 91/43 98 Room Air 01/29/17 00:04 87/42 01/29/17 00:00 98.1 95 18 87/42 98 Room Air 01/29/17 00:00 88 01/28/17 23:50 85/38 01/28/17 23:00 89 20 89/39 100 Room Air 01/28/17 22:00 88 23 89/33 100 Room Air 01/28/17 21:00 86 24 77/41 99 Room Air 01/28/17 20:00 99.0 91 24 87/37 98 Room Air 01/28/17 20:00 91 01/28/17 19:00 94 24 82/38 100 Room Air 01/28/17 18:00 90 23 81/41 95 Room Air 01/28/17 17:00 91 22 83/36 99 Room Air 01/28/17 16:00 97 01/28/17 16:00 98.9 96 23 81/34 98 Room Air 01/28/17 15:00 96 23 87/39 96 Room Air 01/28/17 14:00 93 23 87/43 98 Room Air 01/28/17 13:14 89 01/28/17 13:00 97.9 93 26 109/68 98 Room Air 01/28/17 12:49 91 16 83/46 98 Room Air 01/28/17 12:00 98.8 91 21 82/54 98 Room Air 01/28/17 11:00 99.2 93 25 86/42 97 Room Air Status: awake Condition: critical HEENT: atraumatic, normocephalic Neck: full ROM Lungs: clear Heart: HR/BP stable, HR/BP unstable Abdomen: soft, non-tender, feeding tube Extremities: edema Decubiti: stage Accucheck: 142 Critical Care - Subjective ROS Limited/Unobtainable: No ICU Day: 2 Condition: critical EKG Rhythm: Sinus Rhythm Fluids: d5 1/2 NS a50 cc. hour I&O: Intake and Output 01/29/17 01/30/17 19:00 07:00 Intake Total 160 ml Balance 160 ml IV Total 160 ml CXR: clear Labs: Laboratory Tests Test 01/28/17 16:40 01/29/17 02:30 01/29/17 04:15 Sodium Level 141 MMOL/L (136-145) 140 MMOL/L (136-145) Potassium Level 4.1 MMOL/L (3.5-5.1) 4.1 MMOL/L (3.5-5.1) Chloride Level 108 MMOL/L (98-107) H 113 MMOL/L (98-107) H Carbon Dioxide Level 20 MMOL/L (21-32) L 22 MMOL/L (21-32) Anion Gap 13 mmol/L (5-15) 5 mmol/L (5-15) Blood Urea Nitrogen 38 mg/dL (7-18) H 35 mg/dL (7-18) H Creatinine 2.0 MG/DL (0.55-1.30) H 1.4 MG/DL (0.55-1.30) H Estimat Glomerular Filtration Rate 39.4 mL/min (>60) 59.5 mL/min (>60) Glucose Level 101 MG/DL (74-106) 94 MG/DL (74-106) Uric Acid 8.5 MG/DL (2.6-7.2) H Calcium Level 7.4 MG/DL (8.5-10.1) L 7.0 MG/DL (8.5-10.1) L Lactate Dehydrogenase 391 U/L (81-234) H Total Creatine Kinase 1527 U/L (26-308) H 1925 U/L (26-308) H Hepatitis A IgM Antibody Pending Hepatitis B Surface Antigen Pending Hepatitis B Core IgM Antibody Pending Hepatitis C Antibody Pending HIV (1&2) Antibody Rapid Preliminary positive Urine Color Yellow Urine Appearance Clear Urine pH 5 (4.5-8.0) Urine Specific [place] 1.020 (1.005-1.035) Urine Protein 2+ (NEGATIVE) H Urine Glucose (UA) Negative (NEGATIVE) Urine Ketones Negative (NEGATIVE) Urine Occult Blood 2+ (NEGATIVE) H Urine Nitrite Negative (NEGATIVE) Urine Bilirubin Negative (NEGATIVE) Urine Urobilinogen 1 MG/DL (0.0-1.0) H Urine Leukocyte Esterase 1+ (NEGATIVE) H Urine RBC 2-4 /HPF (0 - 0) H Urine WBC 2-4 /HPF (0 - 0) Urine Squamous Epithelial Cells Few /LPF (NONE/OCC) Urine Bacteria Few /HPF (NONE) Urine Fine Granular Casts 0-2 /LPF (NONE) H Urine Coarse Granular Casts 0-2 /LPF (NONE) H Urine Sperm Few /LPF (NONE) Urine Eosinophils None seen Urine Random Sodium 27 MEQ/L (20-110) Urine Potassium Timed 109 mmol/L (12-62) H White Blood Count 16.7 K/UL (4.8-10.8) #H Red Blood Count 3.47 M/UL (4.70-6.10) L Hemoglobin 11.7 G/DL (14.2-18.0) L Hematocrit 32.6 % (42.0-52.0) L Mean Corpuscular Volume 94 FL (80-99) Mean Corpuscular Hemoglobin 33.6 PG (27.0-31.0) H Mean Corpuscular Hemoglobin Concent 35.8 G/DL (32.0-36.0) Red Cell Distribution Width 12.6 % (11.6-14.8) Platelet Count 123 K/UL (150-450) L Mean Platelet Volume 6.3 FL (6.5-10.1) L Neutrophils (%) (Auto) 84.7 % (45.0-75.0) H Lymphocytes (%) (Auto) 7.1 % (20.0-45.0) L Monocytes (%) (Auto) 7.7 % (1.0-10.0) Eosinophils (%) (Auto) 0.1 % (0.0-3.0) Basophils (%) (Auto) 0.4 % (0.0-2.0) Erythrocyte Sedimentation Rate 56 MM/HR (0-15) H Phosphorus Level 2.4 MG/DL (2.5-4.9) L Magnesium Level 1.5 MG/DL (1.8-2.4) L Total Bilirubin 0.8 MG/DL (0.2-1.0) Direct Bilirubin 0.3 MG/DL (0.0-0.3) Aspartate Amino Transf (AST/SGOT) 239 U/L (15-37) H Alanine Aminotransferase (ALT/SGPT) 324 U/L (12-78) H Alkaline Phosphatase 64 U/L (46-116) Creatine Kinase MB 20.8 NG/ML (0.0-3.6) H Creatine Kinase MB Relative Index 1.0 C-Reactive Protein, Quantitative 22.1 mg/dL (0.00-0.90) H Total Protein 6.5 G/DL (6.4-8.2) Albumin 2.6 G/DL (3.4-5.0) L Globulin 3.9 g/dL Albumin/Globulin Ratio 0.7 (1.0-2.7) L NAYELY MCMULLEN Jan 29, 2017 10:22
[2017-01-29] MEDS ORDERED: Sodium Phosphate 30 MM in NS 275 ML IVPB ONE (10:30)
--- NOTE | 2017-01-29 10:40 | Consultation ---
History of Present Illness General Date patient seen: Jan 29, 2017 Time patient seen: 10:44 Chief Complaint: Substance Abuse Present Illness HPI 31 y/o M with unkown medical hx, s/p cholecystectomy (per CT findings), report of hx of IV substance abuse(methamphetamine) and psych disorder is brought to ED on 01/28 by EMS due to AMS and agitation. Found lethargic in [facility] [facility]. In ED, he was found to have rhabdomyolysis and renal failure and admitted to the ICU. UDS + amphetamines When asked why he is here he responded: I overdosed; he used IV drug, thought it was meth but thinks may have had heroin on it, but UDS was only positive for Meth He claims being tested for HIV 2 months ago and it was negative. Last sexually active 2 months ago; preferrence women. +R facial pressure and congestion,; Denies f/c, n/v/d, cough, abd pain, rash. Allergies: Coded Allergies: PENICILLINS (Unverified Allergy, Unknown, 01/28/17) Medication History Scheduled No Known Medications* (NKM - No Known Medications*), 0 ., (Reported) Miscellaneous Medications Unable to Obtain Medications (Unable To Obtain Meds), (Reported) Patient History Healthcare decision maker Resuscitation status Full Code Advanced Directive on File Review of Systems ROS Narrative as per HPI, otherwise negative. Physical Exam Physical Exam Narrative GENERAL: The patient is well developed, disheveled, filthy, white male, in no apparent distress. The patient is somnolence but easily arousable HEENT: Eyes, pupils are equal and responsive to light and accommodation.Extraocular movements are intact. NECK: Supple without lymphadenopathy. CHEST: Lungs are clear to auscultation bilaterally without wheezes or rales. CARDIOVASCULAR: Tachycardic, regular rhythm with S1 and S2 normal without murmurs, rubs, or gallops. ABDOMEN: Soft, nontender, nondistended. Positive bowel sounds. Noevidence of hepatosplenomegaly. EXTREMITIES: Negative for clubbing, cyanosis, or edema. IV marking L antecubital fossa RECTAL/GENITAL: Not performed. NEUROLOGIC: No focal deficits, slow to respond Last 24 Hour Vital Signs Date Time Temp Pulse Resp B/P (MAP) Pulse Ox O2 Delivery O2 Flow Rate FiO2 01/29/17 10:00 92 20 98/43 99 Room Air 11/24/17 09:00 94 16 100/48 97 Room Air 01/29/17 08:00 92 01/29/17 08:00 98.5 93 20 106/49 98 Room Air 01/29/17 07:00 95 29 103/50 97 Room Air 01/29/17 06:30 98 23 97/50 98 Room Air 01/29/17 06:15 94 23 94/49 98 Room Air 01/29/17 06:00 90 21 95/50 98 Room Air 01/29/17 05:45 91 20 106/44 98 Room Air 01/29/17 05:36 107/49 01/29/17 05:30 96 18 107/49 97 Room Air 01/29/17 05:15 96 18 98/45 97 Room Air 01/29/17 05:00 92 19 92/33 96 Room Air 01/29/17 05:00 /33 01/29/17 04:45 95 21 105/43 97 Room Air 01/29/17 04:30 95 20 106/44 96 Room Air 01/29/17 04:15 93 20 100/45 95 Room Air 01/29/17 04:00 112/53 01/29/17 04:00 98 01/29/17 04:00 98.4 99 18 112/53 96 Room Air 01/29/17 03:45 94 18 101/39 95 Room Air 01/29/17 03:30 98 19 105/45 96 Room Air 01/29/17 03:15 100 19 90/54 95 Room Air 01/29/17 03:00 99 19 90/50 94 Room Air 01/29/17 03:00 90/50 01/29/17 02:45 103 17 106/47 97 Room Air 01/29/17 02:30 100 14 98/47 95 Room Air 01/29/17 02:15 97 20 84/52 95 Room Air 01/29/17 02:00 97/45 01/29/17 02:00 100 21 97/45 98 Room Air 01/29/17 01:45 97 19 88/47 98 Room Air 01/29/17 01:30 100 19 93/38 97 Room Air 01/29/17 01:15 99 22 92/48 97 Room Air 01/29/17 01:00 100 21 97/44 97 Room Air 01/29/17 01:00 95/41 01/29/17 00:45 97 20 95/41 96 Room Air 01/29/17 00:30 97 22 88/45 98 Room Air 01/29/17 00:15 96 23 91/43 98 Room Air 01/29/17 00:04 87/42 01/29/17 00:00 98.1 95 18 87/42 98 Room Air 01/29/17 00:00 88 01/28/17 23:50 85/38 01/28/17 23:00 89 20 89/39 100 Room Air 01/28/17 22:00 88 23 89/33 100 Room Air 01/28/17 21:00 86 24 77/41 99 Room Air 01/28/17 20:00 99.0 91 24 87/37 98 Room Air 01/28/17 20:00 91 01/28/17 19:00 94 24 82/38 100 Room Air 01/28/17 18:00 90 23 81/41 95 Room Air 01/28/17 17:00 91 22 83/36 99 Room Air 01/28/17 16:00 97 01/28/17 16:00 98.9 96 23 81/34 98 Room Air 01/28/17 15:00 96 23 87/39 96 Room Air 01/28/17 14:00 93 23 87/43 98 Room Air 01/28/17 13:14 89 01/28/17 13:00 97.9 93 26 109/68 98 Room Air 01/28/17 12:49 91 16 83/46 98 Room Air 01/28/17 12:00 98.8 91 21 82/54 98 Room Air 01/28/17 11:00 99.2 93 25 86/42 97 Room Air Intake and Output 01/29/17 01/30/17 19:00 07:00 Intake Total 160 ml Balance 160 ml IV Total 160 ml Laboratory Tests Test 01/28/17 16:40 01/29/17 02:30 01/29/17 04:15 Sodium Level 141 MMOL/L (136-145) 140 MMOL/L (136-145) Potassium Level 4.1 MMOL/L (3.5-5.1) 4.1 MMOL/L (3.5-5.1) Chloride Level 108 MMOL/L (98-107) H 113 MMOL/L (98-107) H Carbon Dioxide Level 20 MMOL/L (21-32) L 22 MMOL/L (21-32) Anion Gap 13 mmol/L (5-15) 5 mmol/L (5-15) Blood Urea Nitrogen 38 mg/dL (7-18) H 35 mg/dL (7-18) H Creatinine 2.0 MG/DL (0.55-1.30) H 1.4 MG/DL (0.55-1.30) H Estimat Glomerular Filtration Rate 39.4 mL/min (>60) 59.5 mL/min (>60) Glucose Level 101 MG/DL (74-106) 94 MG/DL (74-106) Uric Acid 8.5 MG/DL (2.6-7.2) H Calcium Level 7.4 MG/DL (8.5-10.1) L 7.0 MG/DL (8.5-10.1) L Lactate Dehydrogenase 391 U/L (81-234) H Total Creatine Kinase 1527 U/L (26-308) H 1925 U/L (26-308) H Hepatitis A IgM Antibody Pending Hepatitis B Surface Antigen Pending Hepatitis B Core IgM Antibody Pending Hepatitis C Antibody Pending HIV (1&2) Antibody Rapid Preliminary positive Urine Color Yellow Urine Appearance Clear Urine pH 5 (4.5-8.0) Urine Specific [place] 1.020 (1.005-1.035) Urine Protein 2+ (NEGATIVE) H Urine Glucose (UA) Negative (NEGATIVE) Urine Ketones Negative (NEGATIVE) Urine Occult Blood 2+ (NEGATIVE) H Urine Nitrite Negative (NEGATIVE) Urine Bilirubin Negative (NEGATIVE) Urine Urobilinogen 1 MG/DL (0.0-1.0) H Urine Leukocyte Esterase 1+ (NEGATIVE) H Urine RBC 2-4 /HPF (0 - 0) H Urine WBC 2-4 /HPF (0 - 0) Urine Squamous Epithelial Cells Few /LPF (NONE/OCC) Urine Bacteria Few /HPF (NONE) Urine Fine Granular Casts 0-2 /LPF (NONE) H Urine Coarse Granular Casts 0-2 /LPF (NONE) H Urine Sperm Few /LPF (NONE) Urine Eosinophils None seen Urine Random Sodium 27 MEQ/L (20-110) Urine Potassium Timed 109 mmol/L (12-62) H White Blood Count 16.7 K/UL (4.8-10.8) #H Red Blood Count 3.47 M/UL (4.70-6.10) L Hemoglobin 11.7 G/DL (14.2-18.0) L Hematocrit 32.6 % (42.0-52.0) L Mean Corpuscular Volume 94 FL (80-99) Mean Corpuscular Hemoglobin 33.6 PG (27.0-31.0) H Mean Corpuscular Hemoglobin Concent 35.8 G/DL (32.0-36.0) Red Cell Distribution Width 12.6 % (11.6-14.8) Platelet Count 123 K/UL (150-450) L Mean Platelet Volume 6.3 FL (6.5-10.1) L Neutrophils (%) (Auto) 84.7 % (45.0-75.0) H Lymphocytes (%) (Auto) 7.1 % (20.0-45.0) L Monocytes (%) (Auto) 7.7 % (1.0-10.0) Eosinophils (%) (Auto) 0.1 % (0.0-3.0) Basophils (%) (Auto) 0.4 % (0.0-2.0) Erythrocyte Sedimentation Rate 56 MM/HR (0-15) H Phosphorus Level 2.4 MG/DL (2.5-4.9) L Magnesium Level 1.5 MG/DL (1.8-2.4) L Total Bilirubin 0.8 MG/DL (0.2-1.0) Direct Bilirubin 0.3 MG/DL (0.0-0.3) Aspartate Amino Transf (AST/SGOT) 239 U/L (15-37) H Alanine Aminotransferase (ALT/SGPT) 324 U/L (12-78) H Alkaline Phosphatase 64 U/L (46-116) Creatine Kinase MB 20.8 NG/ML (0.0-3.6) H Creatine Kinase MB Relative Index 1.0 C-Reactive Protein, Quantitative 22.1 mg/dL (0.00-0.90) H Total Protein 6.5 G/DL (6.4-8.2) Albumin 2.6 G/DL (3.4-5.0) L Globulin 3.9 g/dL Albumin/Globulin Ratio 0.7 (1.0-2.7) L Height (Feet): 6 Height (Inches): 6.00 Weight (Pounds): 170 Medications Current Medications Medications (Trade) Dose Ordered Sig/Purvi Route PRN Reason Start Time Stop Time Status Last Admin Dose Admin Dextrose (Dextrose 50%) STAT PRN IV Hypoglycemia 01/28/17 13:15 02/27/17 13:14 Dextrose/Sodium Chloride 1,000 ml @ 150 mls/hr Q6H40M IV 01/29/17 09:30 02/28/17 09:29 01/29/17 09:36 Dopamine HCl/ Dextrose 250 ml @ 0 mls/hr Q24H IV 01/28/17 23:30 02/27/17 23:29 01/28/17 23:50 Heparin Sodium (Porcine) (Heparin 5000 units/ml) 5,000 units EVERY 12 HOURS SUBQ 01/28/17 21:00 02/27/17 20:59 01/29/17 08:34 Levofloxacin 100 ml @ 100 mls/hr Q24H IVPB 01/29/17 09:00 02/05/17 08:59 01/29/17 08:36 Magnesium Sulfate 100 ml @ 100 mls/hr Q1H IVPB 01/29/17 10:00 01/29/17 11:59 01/29/17 10:03 Metronidazole 100 ml @ 100 mls/hr Q8HR IVPB 01/28/17 15:00 02/04/17 14:59 01/29/17 05:36 Pantoprazole (Protonix) 40 mg DAILY IV 01/28/17 14:30 02/27/17 14:29 01/29/17 08:32 Sodium Phosphate 30 mm/Sodium Chloride 285 ml @ 47.5 mls/hr ONCE ONCE IVPB 01/29/17 10:30 01/29/17 16:29 01/29/17 10:35 Assessment/Plan Assessment/Plan Abx: Levofloxacin 01/28- Metronidazole 01/28- Assesment: AMS- due methamphetamine over dose Head CT: : Inflammatory change in the right maxillary sinus. Otherwise negative CT scan of the head without contrast material. Leukocytosis- likely reactive, possible sinusitis contributing. r/o aspiration pneumonia/pnuemonitis -CXR p Low grade fever , resolved HIV ag/ab -preliminary positive, await confirmation and VL Possible R maxillary sinusitis Rhabdomyloysis- 2ry to above -CPK ~1900s, increasing NEL, improving- 2ry to above Transaminitis (AST/ALT ~500s), improving- 2ry to above; r/o acute viral hepatitis Abd/p CT : Lack of any contrast material considerably limits evaluation in this patient. Possible thickening of the colonic wall versus underdistention in the region of the sigmoid colon. Inflammatory disease is not excluded.Increased density in pericolonic fat in the right side of the abdomen. This could represent inflammatory change but this is not certain. Previous cholecystectomy. Splenomegaly.Basilar atelectasis. Plan: -Continue Levaquin and Flagyl #2/5-7 for possible sinusitis -check EKG to monitor Qtc -f/u CXR and obtain u/a with reflex and BCx -f/u HIV ab confirmation, obtain HIV VL, RPR, GC/CL -f/u hep panel -f/u cx -Monitor CBC/BMP, temperatures Thank you for this consultation. Will continue to follow along with you. Discussed with RN and neuro team. I discussed with patient preliminary results of HIV testing. He says has never been diagnosed with HIV. Eli Cooper M.D. Jan 29, 2017 10:40
--- NOTE | 2017-01-29 11:55 | Neurology Progress Note ---
Interim History Interim History ROS Limited/Unobtainable: No Objective Physical Exam Last Vital Signs Date Time Temp Pulse Resp B/P (MAP) Pulse Ox O2 Delivery O2 Flow Rate FiO2 01/29/17 10:00 92 20 98/43 99 Room Air 01/29/17 08:00 98.5 Laboratory Tests Test 01/28/17 16:40 01/29/17 02:30 01/29/17 04:15 Sodium Level 141 MMOL/L (136-145) 140 MMOL/L (136-145) Potassium Level 4.1 MMOL/L (3.5-5.1) 4.1 MMOL/L (3.5-5.1) Chloride Level 108 MMOL/L (98-107) H 113 MMOL/L (98-107) H Carbon Dioxide Level 20 MMOL/L (21-32) L 22 MMOL/L (21-32) Anion Gap 13 mmol/L (5-15) 5 mmol/L (5-15) Blood Urea Nitrogen 38 mg/dL (7-18) H 35 mg/dL (7-18) H Creatinine 2.0 MG/DL (0.55-1.30) H 1.4 MG/DL (0.55-1.30) H Estimat Glomerular Filtration Rate 39.4 mL/min (>60) 59.5 mL/min (>60) Glucose Level 101 MG/DL (74-106) 94 MG/DL (74-106) Uric Acid 8.5 MG/DL (2.6-7.2) H Calcium Level 7.4 MG/DL (8.5-10.1) L 7.0 MG/DL (8.5-10.1) L Lactate Dehydrogenase 391 U/L (81-234) H Total Creatine Kinase 1527 U/L (26-308) H 1925 U/L (26-308) H Hepatitis A IgM Antibody Pending Hepatitis B Surface Antigen Pending Hepatitis B Core IgM Antibody Pending Hepatitis C Antibody Pending HIV (1&2) Antibody Rapid Preliminary positive Urine Color Yellow Urine Appearance Clear Urine pH 5 (4.5-8.0) Urine Specific [place] 1.020 (1.005-1.035) Urine Protein 2+ (NEGATIVE) H Urine Glucose (UA) Negative (NEGATIVE) Urine Ketones Negative (NEGATIVE) Urine Occult Blood 2+ (NEGATIVE) H Urine Nitrite Negative (NEGATIVE) Urine Bilirubin Negative (NEGATIVE) Urine Urobilinogen 1 MG/DL (0.0-1.0) H Urine Leukocyte Esterase 1+ (NEGATIVE) H Urine RBC 2-4 /HPF (0 - 0) H Urine WBC 2-4 /HPF (0 - 0) Urine Squamous Epithelial Cells Few /LPF (NONE/OCC) Urine Bacteria Few /HPF (NONE) Urine Fine Granular Casts 0-2 /LPF (NONE) H Urine Coarse Granular Casts 0-2 /LPF (NONE) H Urine Sperm Few /LPF (NONE) Urine Eosinophils None seen Urine Random Sodium 27 MEQ/L (20-110) Urine Potassium Timed 109 mmol/L (12-62) H White Blood Count 16.7 K/UL (4.8-10.8) #H Red Blood Count 3.47 M/UL (4.70-6.10) L Hemoglobin 11.7 G/DL (14.2-18.0) L Hematocrit 32.6 % (42.0-52.0) L Mean Corpuscular Volume 94 FL (80-99) Mean Corpuscular Hemoglobin 33.6 PG (27.0-31.0) H Mean Corpuscular Hemoglobin Concent 35.8 G/DL (32.0-36.0) Red Cell Distribution Width 12.6 % (11.6-14.8) Platelet Count 123 K/UL (150-450) L Mean Platelet Volume 6.3 FL (6.5-10.1) L Neutrophils (%) (Auto) 84.7 % (45.0-75.0) H Lymphocytes (%) (Auto) 7.1 % (20.0-45.0) L Monocytes (%) (Auto) 7.7 % (1.0-10.0) Eosinophils (%) (Auto) 0.1 % (0.0-3.0) Basophils (%) (Auto) 0.4 % (0.0-2.0) Erythrocyte Sedimentation Rate 56 MM/HR (0-15) H Phosphorus Level 2.4 MG/DL (2.5-4.9) L Magnesium Level 1.5 MG/DL (1.8-2.4) L Total Bilirubin 0.8 MG/DL (0.2-1.0) Direct Bilirubin 0.3 MG/DL (0.0-0.3) Aspartate Amino Transf (AST/SGOT) 239 U/L (15-37) H Alanine Aminotransferase (ALT/SGPT) 324 U/L (12-78) H Alkaline Phosphatase 64 U/L (46-116) Creatine Kinase MB 20.8 NG/ML (0.0-3.6) H Creatine Kinase MB Relative Index 1.0 C-Reactive Protein, Quantitative 22.1 mg/dL (0.00-0.90) H Total Protein 6.5 G/DL (6.4-8.2) Albumin 2.6 G/DL (3.4-5.0) L Globulin 3.9 g/dL Albumin/Globulin Ratio 0.7 (1.0-2.7) L Impression/Recommendations Problems: (1) 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
--- NOTE | 2017-01-29 12:54 | Diagnostic Imaging Report ---
Indication: COUGH Technique: Two views of the chest Comparison: none Findings: The heart is enlarged. Lungs and pleural spaces are clear. Impression: Cardiomegaly. No acute process
[2017-01-29 14:08] LABS: APPEARANCE,URINE CLEAR; KETONES,URINE NEGATIVE (NEGATIVE); LEUKOCYTE ESTERASE ,URINE 1+ (NEGATIVE); NITRITE,URINE NEGATIVE (NEGATIVE); PH,URINE 5 (4.5-8.0); PROTEIN,URINE NEGATIVE (NEGATIVE); UROBILINOGEN,URINE 1 MG/DL (0.0-1.0)
[2017-01-29 14:17] LABS: BACTERIA,URINE OCCASIONAL /HPF; RBC,URINE 0-2 /HPF (0 - 0); SQUAMOUS EPITHELIAL CELL,UR OCCASIONAL /LPF (NONE/OCC)
[2017-01-29 14:21] LABS: INR 1.1 (0.9-1.1); PROTHROMBIN TIME 11.2 SEC (9.30-11.50)
--- NOTE | 2017-01-29 14:34 | Internal Med Progress Note ---
Subjective Date of Service: Jan 29, 2017 Physician Name Suhail Olmstead Attending Physician Samir [place] MD Current Medications Medications (Trade) Dose Ordered Sig/Purvi Route PRN Reason Start Time Stop Time Status Last Admin Dose Admin Dextrose (Dextrose 50%) STAT PRN IV Hypoglycemia 01/28/17 13:15 02/27/17 13:14 Dextrose/Sodium Chloride 1,000 ml @ 150 mls/hr Q6H40M IV 01/29/17 09:30 02/28/17 09:29 01/29/17 09:36 Dopamine HCl/ Dextrose 250 ml @ 0 mls/hr Q24H IV 01/28/17 23:30 02/27/17 23:29 01/28/17 23:50 Heparin Sodium (Porcine) (Heparin 5000 units/ml) 5,000 units EVERY 12 HOURS SUBQ 01/28/17 21:00 02/27/17 20:59 01/29/17 08:34 Levofloxacin 100 ml @ 100 mls/hr Q24H IVPB 01/29/17 09:00 02/05/17 08:59 01/29/17 08:36 Metronidazole 100 ml @ 100 mls/hr Q8HR IVPB 01/28/17 15:00 02/04/17 14:59 01/29/17 13:38 Pantoprazole (Protonix) 40 mg DAILY IV 01/28/17 14:30 02/27/17 14:29 01/29/17 08:32 Sodium Phosphate 30 mm/Sodium Chloride 285 ml @ 47.5 mls/hr ONCE ONCE IVPB 01/29/17 10:30 01/29/17 16:29 01/29/17 10:35 Allergies: Coded Allergies: PENICILLINS (Unverified Allergy, Unknown, 01/28/17) ROS Limited/Unobtainable: Yes Subjective 31 YO M admitted with altered mental status and rhabdomyolysis. Now elevated liver function tests and HIV preliminary positive. Hypotensive overnight requiring dopamine drip. Continues lethargic. Cover for Int Med-Dr [place]. ICU Objective Last Vital Signs Date Time Temp Pulse Resp B/P (MAP) Pulse Ox O2 Delivery O2 Flow Rate FiO2 01/29/17 14:00 86 22 97/59 100 Room Air 01/29/17 12:00 98.3 General Appearance: lethargic EENT: PERRL/EOMI, normal ENT inspection Neck: non-tender, normal alignment, supple Cardiovascular: normal peripheral pulses, normal rate, regular rhythm, no gallop/murmur, no JVD Respiratory/Chest: chest wall non-tender, lungs clear, normal breath sounds, no respiratory distress, no accessory muscle use Abdomen: normal bowel sounds, non tender, soft, no organomegaly, no mass, abnormal bowel sounds Extremities: normal range of motion 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: associate professor II-XII grossly normal Skin: normal pigmentation, warm/dry Laboratory Tests Test 01/28/17 16:40 01/29/17 02:30 01/29/17 04:15 01/29/17 11:40 Sodium Level 141 MMOL/L (136-145) 140 MMOL/L (136-145) Potassium Level 4.1 MMOL/L (3.5-5.1) 4.1 MMOL/L (3.5-5.1) Chloride Level 108 MMOL/L (98-107) H 113 MMOL/L (98-107) H Carbon Dioxide Level 20 MMOL/L (21-32) L 22 MMOL/L (21-32) Anion Gap 13 mmol/L (5-15) 5 mmol/L (5-15) Blood Urea Nitrogen 38 mg/dL (7-18) H 35 mg/dL (7-18) H Creatinine 2.0 MG/DL (0.55-1.30) H 1.4 MG/DL (0.55-1.30) H Estimat Glomerular Filtration Rate 39.4 mL/min (>60) 59.5 mL/min (>60) Glucose Level 101 MG/DL (74-106) 94 MG/DL (74-106) Uric Acid 8.5 MG/DL (2.6-7.2) H Calcium Level 7.4 MG/DL (8.5-10.1) L 7.0 MG/DL (8.5-10.1) L Lactate Dehydrogenase 391 U/L (81-234) H Total Creatine Kinase 1527 U/L (26-308) H 1925 U/L (26-308) H Hepatitis A IgM Antibody Pending Hepatitis B Surface Antigen Pending Hepatitis B Core IgM Antibody Pending Hepatitis C Antibody Pending HIV (1&2) Antibody Rapid Preliminary positive Urine Color Yellow Urine Appearance Clear Urine pH 5 (4.5-8.0) Urine Specific [place] 1.020 (1.005-1.035) Urine Protein 2+ (NEGATIVE) H Urine Glucose (UA) Negative (NEGATIVE) Urine Ketones Negative (NEGATIVE) Urine Occult Blood 2+ (NEGATIVE) H Urine Nitrite Negative (NEGATIVE) Urine Bilirubin Negative (NEGATIVE) Urine Urobilinogen 1 MG/DL (0.0-1.0) H Urine Leukocyte Esterase 1+ (NEGATIVE) H Urine RBC 2-4 /HPF (0 - 0) H Urine WBC 2-4 /HPF (0 - 0) Urine Squamous Epithelial Cells Few /LPF (NONE/OCC) Urine Bacteria Few /HPF (NONE) Urine Fine Granular Casts 0-2 /LPF (NONE) H Urine Coarse Granular Casts 0-2 /LPF (NONE) H Urine Sperm Few /LPF (NONE) Urine Eosinophils None seen Urine Random Sodium 27 MEQ/L (20-110) Urine Potassium Timed 109 mmol/L (12-62) H White Blood Count 16.7 K/UL (4.8-10.8) #H Pending Red Blood Count 3.47 M/UL (4.70-6.10) L Hemoglobin 11.7 G/DL (14.2-18.0) L Hematocrit 32.6 % (42.0-52.0) L Mean Corpuscular Volume 94 FL (80-99) Mean Corpuscular Hemoglobin 33.6 PG (27.0-31.0) H Mean Corpuscular Hemoglobin Concent 35.8 G/DL (32.0-36.0) Red Cell Distribution Width 12.6 % (11.6-14.8) Platelet Count 123 K/UL (150-450) L Mean Platelet Volume 6.3 FL (6.5-10.1) L Neutrophils (%) (Auto) 84.7 % (45.0-75.0) H Lymphocytes (%) (Auto) 7.1 % (20.0-45.0) L Monocytes (%) (Auto) 7.7 % (1.0-10.0) Eosinophils (%) (Auto) 0.1 % (0.0-3.0) Basophils (%) (Auto) 0.4 % (0.0-2.0) Erythrocyte Sedimentation Rate 56 MM/HR (0-15) H Phosphorus Level 2.4 MG/DL (2.5-4.9) L Magnesium Level 1.5 MG/DL (1.8-2.4) L Total Bilirubin 0.8 MG/DL (0.2-1.0) Direct Bilirubin 0.3 MG/DL (0.0-0.3) Aspartate Amino Transf (AST/SGOT) 239 U/L (15-37) H Alanine Aminotransferase (ALT/SGPT) 324 U/L (12-78) H Alkaline Phosphatase 64 U/L (46-116) Creatine Kinase MB 20.8 NG/ML (0.0-3.6) H Creatine Kinase MB Relative Index 1.0 C-Reactive Protein, Quantitative 22.1 mg/dL (0.00-0.90) H Total Protein 6.5 G/DL (6.4-8.2) Albumin 2.6 G/DL (3.4-5.0) L Globulin 3.9 g/dL Albumin/Globulin Ratio 0.7 (1.0-2.7) L Lymphocytes Pending Percent CD3 Cells Pending Absolute CD3 Count Pending Percent CD4 Cells Pending Absolute CD4 Count Pending T-Lymphocyte CD4/CD8 Ratio Pending Percent CD8 Cells Pending Absolute CD8 Count Pending Rapid Plasma Reagin Pending HIV-1 RNA (PCR) log10 Value Pending HIV-1 RNA Ultraquantitative (PCR) Pending Test 01/29/17 13:40 01/29/17 13:45 Prothrombin Time 11.2 SEC (9.30-11.50) Prothromb Time International Ratio 1.1 (0.9-1.1) Vitamin B6 Level Pending Vitamin B12 Level Pending Vitamin D 25-Hydroxy Pending 25-Hydroxy Vitamin D2 Pending 25-Hydroxy Vitamin D3 Pending Anti-Nuclear Antibody Screen Pending Urine Color Yellow Urine Appearance Clear Urine pH 5 (4.5-8.0) Urine Specific [place] 1.015 (1.005-1.035) Urine Protein Negative (NEGATIVE) Urine Glucose (UA) Negative (NEGATIVE) Urine Ketones Negative (NEGATIVE) Urine Occult Blood 1+ (NEGATIVE) H Urine Nitrite Negative (NEGATIVE) Urine Bilirubin Negative (NEGATIVE) Urine Urobilinogen 1 MG/DL (0.0-1.0) H Urine Leukocyte Esterase 1+ (NEGATIVE) H Urine RBC 0-2 /HPF (0 - 0) H Urine WBC 2-4 /HPF (0 - 0) Urine Squamous Epithelial Cells Occasional /LPF Urine Bacteria Occasional /HPF (NONE) Intake and Output 01/29/17 01/30/17 19:00 07:00 Intake Total 1058.957 ml Output Total 100 ml Balance 958.957 ml IV Total 1058.957 ml Output Urine Total 100 ml Assessment/Plan Problem List: (1) HIV (human immunodeficiency virus infection) Assessment & Plan: Preliminary positive. See ID note. (2) Altered mental status Assessment & Plan: See neurology note. (3) Colitis Assessment & Plan: Continue levaquin and flagyl. See GI note. 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 See GI note. (6) Acute encephalopathy (7) Rhabdomyolysis Assessment & Plan: CPK increasing. Cont IV fluid. (8) Renal failure Assessment & Plan: Secondary to dehydration and/or rhabdomyolysis. See nephrology note Status: not improved SUHAIL OLMSTEAD Jan 29, 2017 14:34
--- NOTE | 2017-01-29 16:00 | Consultation ---
DATE OF CONSULTATION: 01/29/2017 NEUROLOGICAL CONSULTATION CONSULTING PHYSICIAN: Boris Ortega M.D. REQUESTING PHYSICIAN: Samir [place] M.D. HISTORY OF PRESENT ILLNESS: This is a [id number] man, who was brought to this facility with acute changes in mental status, being agitated and restless. On arrival, he was hypotensive. Blood pressure 92/54 with sinus tachycardia, rate of 124, and temperature 100.0 degrees. The patient was lethargic, unable to provide sufficient information. His initial workup included stat CT of the brain. This revealed inflammatory changes in the left maxillary sinus, otherwise, negative. CAT scan of the abdomen and pelvis revealing possible thickening of colonic wall, increased pericolonic fat on the right side of the abdomen, previous cholecystectomy, splenomegaly, and basilar atelectasis. Lab work with a CBC study of hemoglobin 12.8, hematocrit 37.7, platelet count 126,000, and 10 bands. Sedimentation rate of 56. Toxicology panel positive for amphetamines. Urinalysis abnormal with 3+ protein. His chemistry panel included elevated BUN of 32, creatinine 2.3, blood sugar 118. Total bilirubin 1.8, direct 1.2, AST 587, and ALT 486. Elevated CPK at 548, but normal. Troponin, elevated CRP 22.1 with creatinine sequential measurement included 1925. Uric acid 8.5. Calcium 7.4. The patient remained confused, but noted today being more responsive. The patient initially was given dopamine and IV fluids. Blood pressure somewhat improved, respiration rate remained 20-29, she was afebrile, and heart rate 92. PAST MEDICAL HISTORY: The patient was able to inform me that he was using methamphetamines and heroin for the purpose of "have fun," but he denied use of alcohol. He denied suicidal attempts. SOCIAL HISTORY: Lives alone. Did not work "for long time." Denies alcohol abuse, but admitted to use of cocaine and heroin. REVIEW OF SYSTEMS: The patient complains of headaches, dizziness, generalized weakness, photophobia. Denies chest pain or palpitations. Denies respiratory problems. Denies abdominal pain or discomfort. No urine or bowel incontinence. The patient summarized that he had no medical issues in the past and was not getting treatment. PHYSICAL EXAMINATION: GENERAL: A well-developed, well-nourished man, not in acute distress, lying in bed with eyes closed, presenting with photophobia. VITAL SIGNS: Blood pressure 98/43, heart rate of 92. HEENT: Head normocephalic. Flushed face and torso flushed. NECK: Somewhat rigid in flexion. EXTREMITIES: Upper and lower extremities without clubbing, cyanosis, or edema. The patient is somewhat disheveled. Somewhat quite dirty feet, presumably previously walking barefoot. SKIN: Without rash. MENTAL STATUS EXAMINATION: The patient is lethargic, but arousable. Oriented to his name, age, and location. Responses are slow, single words or sentence. Able to follow simple commands. CRANIAL NERVES II: Pupils both responding to light and accommodation. Extraocular movements full range. There is slight redness of conjunctivae noted. CRANIAL NERVES V: Normal corneal responses. CRANIAL NERVE VII: No facial asymmetry. CRANIAL NERVES VIII: Normal hearing. CRANIAL NERVES IX TO XII: Tongue is in midline. Symmetric palate elevation. MOTOR EXAMINATION: Able to lift arms and legs against gravity. There was some limitation in both legs elevation. Deep tendon reflexes 1+ and bilaterally symmetric. Plantar response is mute. SENSORY EXAMINATION: Withdrawing to pin stimulation. IMPRESSION: 1. Acute toxic encephalopathy due to heroin/methamphetamine abuse. 2. Acute renal insufficiency. 3. Acute hepatic insufficiency. 4. Rhabdomyolysis. 5. Rule out human immunodeficiency virus meningitis. RECOMMENDATION: The patient is started on IV fluids, antibiotics. Maintain ICU monitoring. Lethargy has slightly improved. I discussed the patient's status discussed with ID and nursing staff. We will obtain further HIV study. If positive, we will obtain spinal tap. Meanwhile, the patient will continue with current supportive care. Adding thiamine 100 mg daily. Lab work to include B12, folate, sedimentation rate, hepatitis panel. Thank you for allowing me to see this interesting patient in neurological consultation. Boris Ortega M.D. DR: Richie JOB#: [id number] CC:
[2017-01-29] MEDS ORDERED: NS 500ML ONE (16:01)
[2017-01-29] MEDS: DOPamine 400mg/250ml 250 ML IV SCH (23:30)
[2017-01-30] VITALS (14 sets, daily range): BP systolic 110–136; BP diastolic 7–85
[2017-01-30 04:54] LABS: MEAN CORPUSCULAR HEMOGLOBIN 32.4 PG (27.0-31.0); MEAN CORPUSCULAR HGB CONC 34.4 G/DL (32.0-36.0); MEAN CORPUSCULAR VOLUME 94 FL (80-99); MEAN PLATELET VOLUME 6.7 FL (6.5-10.1); PLATELET COUNT 111 K/UL (150-450); RED BLOOD COUNT 3.48 M/UL (4.70-6.10); RED CELL DISTRIBUTION WIDTH 12.3 % (11.6-14.8)
[2017-01-30] MEDS: D5 1/2NS 1,000 ML IV SCH ×4 (05:07→21:28)
[2017-01-30 05:18] LABS: ALANINE AMINOTRANSFERASE 228 U/L (12-78); ALBUMIN/GLOBULIN RATIO 0.7 (1.0-2.7); ANION GAP 10 mmol/L (5-15); ASPARTATE AMINO TRANSFERASE 135 U/L (15-37); BAND NEUTROPHILS % (MANUAL) 0 % (0-8); BASOPHILS % (MANUAL) 0 % (0-2); CALCIUM 7.6 MG/DL (8.5-10.1); CARBON DIOXIDE 20 MMOL/L (21-32); CHLORIDE 110 MMOL/L (98-107); CREATININE 1.1 MG/DL (0.55-1.30); EOSINOPHILS % (MANUAL) 0 % (0-3); GLOMERULAR FILTRATION RATE > 60 mL/min (>60); LYMPHOCYTES % (MANUAL) 13 % (20-45); NEUTROPHILS % (MANUAL) 86 % (45-75); PLATELET ESTIMATE DECREASED; PLATELET MORPHOLOGY NORMAL; POTASSIUM 3.3 MMOL/L (3.5-5.1); SODIUM 140 MMOL/L (136-145); TOTAL CELLS COUNTED 100; TOTAL PROTEIN 6.3 G/DL (6.4-8.2)
[2017-01-30 05:20] LABS: CRP QUANT 14.7 mg/dL (0.00-0.90); MAGNESIUM 1.4 MG/DL (1.8-2.4); PHOSPHORUS 2.3 MG/DL (2.5-4.9); URIC ACID 4.7 MG/DL (2.6-7.2)
--- NOTE | 2017-01-30 08:38 | Pulmonolgy Critical Care Note ---
Critical Care - Asmt/Plan Problems: (1) Acute encephalopathy (2) Renal failure (3) 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 (4) Rhabdomyolysis (5) HIV (human immunodeficiency virus infection) (6) Hepatitis C Respiratory: monitor respiratory rate, adjust FIO2 Cardiac: continue to monitor HR/BP Renal: F/U I&O, keep IV fluid, check electrolytes Infectious Disease: check cultures, continue antibiotics Gastrointestinal: continue feedings/current rate Endocrine: monitor blood sugar, continue sliding scale insulin Hematologic: monitor H/H, transfuse if hgb<8.5 Neurologic: PRN Ativan, PRN Morphine, keep patient comfortable Affect: PRN ativan Prophylaxis: Protonix, Heparin Notes Reviewed: cardio, renal Discussed with: nurses, consultants, case aideadvertising sales manager - Objective Last 24 Hour Vital Signs Date Time Temp Pulse Resp B/P (MAP) Pulse Ox O2 Delivery O2 Flow Rate FiO2 01/30/17 07:00 89 26 120/7 98 Room Air 01/30/17 06:00 92 26 119/66 98 Room Air 01/30/17 05:00 88 27 110/68 99 Room Air 01/30/17 04:15 91 01/30/17 04:00 98.7 90 29 119/68 97 Room Air 01/30/17 03:00 92 27 111/68 97 Room Air 01/30/17 02:00 92 16 126/81 97 Room Air 01/30/17 01:00 93 27 114/54 97 Room Air 01/30/17 00:22 94 01/30/17 00:00 98.7 91 26 117/78 97 Room Air 01/29/17 23:30 117/78 01/29/17 23:00 91 18 87/40 97 Room Air 01/29/17 22:00 93 26 112/81 95 Room Air 01/29/17 21:00 94 24 110/81 96 Room Air 01/29/17 20:00 98.3 94 26 98/63 100 Room Air 01/29/17 19:43 93 01/29/17 19:00 92 26 115/63 96 Room Air 01/29/17 17:00 91 22 110/54 99 Room Air 01/29/17 16:00 97.7 86 27 113/60 95 Room Air 01/29/17 16:00 83 01/29/17 15:00 92 27 96/69 96 Room Air 01/29/17 14:00 86 22 97/59 100 Room Air 01/29/17 13:00 87 21 97/51 97 Room Air 01/29/17 12:00 86 01/29/17 12:00 98.3 85 20 110/57 98 Room Air 01/29/17 11:00 89 19 88/44 98 Room Air 01/29/17 10:00 92 20 98/43 99 Room Air 01/29/17 09:00 94 16 100/48 97 Room Air Status: awake Condition: critical HEENT: atraumatic, normocephalic Neck: full ROM Lungs: chest wall tender Heart: HR/BP stable, HR/BP unstable, regular Abdomen: soft, non-tender, feeding tube Extremities: no C/C/E, edema Micro: Microbiology Date/Time Source Procedure Growth Status 01/28/17 08:00 Blood Blood Culture - Preliminary NO GROWTH AFTER 24 HOURS Resulted 01/28/17 07:40 Blood Blood Culture - Preliminary NO GROWTH AFTER 24 HOURS Resulted 01/28/17 11:00 Nasal Nares MRSA Culture - Final NO METHICILLIN RESISTANT STAPH AUREUS... Complete 01/28/17 11:00 Rectum VRE Culture - Final NO VANCOMYCIN RESISTANT ENTEROCOCCUS ... Complete Accucheck: 142 Critical Care - Subjective ROS Limited/Unobtainable: No ICU Day: 3 Interval Events: waking up, answering questions. looks comfortable I&O: Intake and Output 01/30/17 01/31/17 19:00 07:00 Intake Total 20 ml Output Total 550 ml Balance -530 ml Intake Oral 0 ml Other 20 ml Output Urine Total 550 ml Labs: Laboratory Tests Test 01/29/17 11:40 01/29/17 13:40 01/29/17 13:45 01/30/17 04:30 White Blood Count Pending 14.0 K/UL (4.8-10.8) H Lymphocytes Pending Percent CD3 Cells Pending Absolute CD3 Count Pending Percent CD4 Cells Pending Absolute CD4 Count Pending T-Lymphocyte CD4/CD8 Ratio Pending Percent CD8 Cells Pending Absolute CD8 Count Pending Rapid Plasma Reagin Non reactive (Non Reactive) HIV-1 RNA (PCR) log10 Value Pending HIV-1 RNA Ultraquantitative (PCR) Pending Prothrombin Time 11.2 SEC (9.30-11.50) Prothromb Time International Ratio 1.1 (0.9-1.1) Vitamin B6 Level Pending Vitamin B12 Level 422 PG/ML (193-986) Vitamin D 25-Hydroxy Pending 25-Hydroxy Vitamin D2 Pending 25-Hydroxy Vitamin D3 Pending Anti-Nuclear Antibody Screen Pending Urine Color Yellow Urine Appearance Clear Urine pH 5 (4.5-8.0) Urine Specific [place] 1.015 (1.005-1.035) Urine Protein Negative (NEGATIVE) Urine Glucose (UA) Negative (NEGATIVE) Urine Ketones Negative (NEGATIVE) Urine Occult Blood 1+ (NEGATIVE) H Urine Nitrite Negative (NEGATIVE) Urine Bilirubin Negative (NEGATIVE) Urine Urobilinogen 1 MG/DL (0.0-1.0) H Urine Leukocyte Esterase 1+ (NEGATIVE) H Urine RBC 0-2 /HPF (0 - 0) H Urine WBC 2-4 /HPF (0 - 0) Urine Squamous Epithelial Cells Occasional /LPF Urine Bacteria Occasional /HPF (NONE) Chlamydia trachomatis RNA Pending Neisseria gonorrhoeae RNA Pending Red Blood Count 3.48 M/UL (4.70-6.10) L Hemoglobin 11.3 G/DL (14.2-18.0) L Hematocrit 32.8 % (42.0-52.0) L Mean Corpuscular Volume 94 FL (80-99) Mean Corpuscular Hemoglobin 32.4 PG (27.0-31.0) H Mean Corpuscular Hemoglobin Concent 34.4 G/DL (32.0-36.0) Red Cell Distribution Width 12.3 % (11.6-14.8) Platelet Count 111 K/UL (150-450) L Mean Platelet Volume 6.7 FL (6.5-10.1) Neutrophils (%) (Auto) % (45.0-75.0) Lymphocytes (%) (Auto) % (20.0-45.0) Monocytes (%) (Auto) % (1.0-10.0) Eosinophils (%) (Auto) % (0.0-3.0) Basophils (%) (Auto) % (0.0-2.0) Differential Total Cells Counted 100 Neutrophils % (Manual) 86 % (45-75) H Lymphocytes % (Manual) 13 % (20-45) L Monocytes % (Manual) 1 % (1-10) Eosinophils % (Manual) 0 % (0-3) Basophils % (Manual) 0 % (0-2) Band Neutrophils 0 % (0-8) Platelet Estimate Decreased L Platelet Morphology Normal Sodium Level 140 MMOL/L (136-145) Potassium Level 3.3 MMOL/L (3.5-5.1) L Chloride Level 110 MMOL/L (98-107) H Carbon Dioxide Level 20 MMOL/L (21-32) L Anion Gap 10 mmol/L (5-15) Blood Urea Nitrogen 16 mg/dL (7-18) Creatinine 1.1 MG/DL (0.55-1.30) Estimat Glomerular Filtration Rate > 60 mL/min (>60) Glucose Level 110 MG/DL (74-106) H Uric Acid 4.7 MG/DL (2.6-7.2) Calcium Level 7.6 MG/DL (8.5-10.1) L Phosphorus Level 2.3 MG/DL (2.5-4.9) L Magnesium Level 1.4 MG/DL (1.8-2.4) L Total Bilirubin 0.4 MG/DL (0.2-1.0) Gamma Glutamyl Transpeptidase 136 U/L (5-85) H Aspartate Amino Transf (AST/SGOT) 135 U/L (15-37) H Alanine Aminotransferase (ALT/SGPT) 228 U/L (12-78) H Alkaline Phosphatase 67 U/L (46-116) Total Creatine Kinase 927 U/L (26-308) H C-Reactive Protein, Quantitative 14.7 mg/dL (0.00-0.90) H Pro-B-Type Natriuretic Peptide 2857 pg/mL (0-125) H Total Protein 6.3 G/DL (6.4-8.2) L Albumin 2.5 G/DL (3.4-5.0) L Globulin 3.8 g/dL Albumin/Globulin Ratio 0.7 (1.0-2.7) L NAYELY MCMULLEN Jan 30, 2017 08:38
[2017-01-30] MEDS: Heparin 5000 units/ml inj SUBQ SCH (09:00)
[2017-01-30] MEDS ORDERED: Sodium Phosphate 30 MM in NS 275 ML IV ONE ×2 (09:45→13:15)
[2017-01-30] MEDS ORDERED: Potassium Chloride 40 MEQ in Sodium Chloride 500ML 550 ML IVPB ONE ×2 (09:45→13:15)
[2017-01-30] MEDS ORDERED: Potassium Phosphate 30 MM in Sodium Chloride 500ML 550 ML IV ONE (09:45)
[2017-01-30] MEDS: Pantoprazole Inj IV SCH (09:46)
--- NOTE | 2017-01-30 10:15 | Diagnostic Imaging Report ---
Indication: Elevated renal function tests Technique: Renal ultrasound Findings: The right kidney measures 14.1 cm in length. The left kidney measures 13.7 cm in length. Bilateral kidneys demonstrate normal echogenicity. No focal renal lesions are seen. There is no hydronephrosis. No sonographically evident stones are seen. The visualized portions of the inferior vena cava are unremarkable. The bladder is partially distended and grossly unremarkable. There is mild ascites. Impression: No hydronephrosis. Mild ascites. Clinical correlation recommended.
--- NOTE | 2017-01-30 10:15 | Nephrology Progress Note ---
Assessment/Plan Assessment 1. Altered mental status. multifactorial 2. Dehydration. 3. Rhabdomyolysis. 4. Renal failure. Cr lowering 5. Elevated liver function test. likely due to Rhabdo 6. Methamphetamine abuse. Plan Vigorous hydration monitor renal parameters and Avoid nephrotoxics per orders Subjective ROS Limited/Unobtainable: No Constitutional: Reports: malaise Objective Objective Last 24 Hour Vital Signs Date Time Temp Pulse Resp B/P (MAP) Pulse Ox O2 Delivery O2 Flow Rate FiO2 01/30/17 09:00 90 29 131/77 98 Room Air 01/30/17 08:00 98.2 90 16 119/80 98 Room Air 01/30/17 08:00 90 01/30/17 07:00 89 26 120/7 98 Room Air 01/30/17 06:00 92 26 119/66 98 Room Air 01/30/17 05:00 88 27 110/68 99 Room Air 01/30/17 04:15 91 01/30/17 04:00 98.7 90 29 119/68 97 Room Air 01/30/17 03:00 92 27 111/68 97 Room Air 01/30/17 02:00 92 16 126/81 97 Room Air 01/30/17 01:00 93 27 114/54 97 Room Air 01/30/17 00:22 94 01/30/17 00:00 98.7 91 26 117/78 97 Room Air 01/29/17 23:30 117/78 01/29/17 23:00 91 18 87/40 97 Room Air 01/29/17 22:00 93 26 112/81 95 Room Air 01/29/17 21:00 94 24 110/81 96 Room Air 01/29/17 20:00 98.3 94 26 98/63 100 Room Air 01/29/17 19:43 93 01/29/17 19:00 92 26 115/63 96 Room Air 01/29/17 17:00 91 22 110/54 99 Room Air 01/29/17 16:00 97.7 86 27 113/60 95 Room Air 01/29/17 16:00 83 01/29/17 15:00 92 27 96/69 96 Room Air 01/29/17 14:00 86 22 97/59 100 Room Air 01/29/17 13:00 87 21 97/51 97 Room Air 01/29/17 12:00 86 01/29/17 12:00 98.3 85 20 110/57 98 Room Air 01/29/17 11:00 89 19 88/44 98 Room Air Intake and Output 01/30/17 01/31/17 19:00 07:00 Intake Total 580 ml Output Total 1200 ml Balance -620 ml Intake Oral 540 ml Other 40 ml Output Urine Total 1200 ml Laboratory Tests 01/29/17 11:40: White Blood Count [Pending], Lymphocytes [Pending], Percent CD3 Cells [Pending] , Absolute CD3 Count [Pending], Percent CD4 Cells [Pending], Absolute CD4 Count [Pending], T-Lymphocyte CD4/CD8 Ratio [Pending], Percent CD8 Cells [Pending], Absolute CD8 Count [Pending], Rapid Plasma Reagin Non reactive, HIV-1 RNA (PCR) log10 Value [Pending], HIV-1 RNA Ultraquantitative (PCR) [Pending] 01/29/17 13:40: Prothrombin Time 11.2, Prothromb Time International Ratio 1.1, Vitamin B6 Level [Pending], Vitamin B12 Level 422, Vitamin D 25-Hydroxy [Pending], 25-Hydroxy Vitamin D2 [Pending], 25-Hydroxy Vitamin D3 [Pending], Anti-Nuclear Antibody Screen [Pending] 01/29/17 13:45: Urine Color Yellow, Urine Appearance Clear, Urine pH 5, Urine Specific [place] 1.015, Urine Protein Negative, Urine Glucose (UA) Negative, Urine Ketones Negative, Urine Occult Blood 1+H, Urine Nitrite Negative, Urine Bilirubin Negative, Urine Urobilinogen 1H, Urine Leukocyte Esterase 1+H, Urine RBC 0-2H, Urine WBC 2-4, Urine Squamous Epithelial Cells Occasional, Urine Bacteria Occasional, Chlamydia trachomatis RNA [Pending], Neisseria gonorrhoeae RNA [ Pending] 01/30/17 04:30: White Blood Count 14.0H, Red Blood Count 3.48L, Hemoglobin 11.3L, Hematocrit 32.8L, Mean Corpuscular Volume 94, Mean Corpuscular Hemoglobin 32.4H, Mean Corpuscular Hemoglobin Concent 34.4, Red Cell Distribution Width 12.3, Platelet Count 111L, Mean Platelet Volume 6.7, Neutrophils (%) (Auto) , Lymphocytes (%) ( Auto) , Monocytes (%) (Auto) , Eosinophils (%) (Auto) , Basophils (%) (Auto) , Differential Total Cells Counted 100, Neutrophils % (Manual) 86H, Lymphocytes % (Manual) 13L, Monocytes % (Manual) 1, Eosinophils % (Manual) 0, Basophils % ( Manual) 0, Band Neutrophils 0, Platelet Estimate DecreasedL, Platelet Morphology Normal, Sodium Level 140, Potassium Level 3.3L, Chloride Level 110H, Carbon Dioxide Level 20L, Anion Gap 10, Blood Urea Nitrogen 16, Creatinine 1.1, Estimat Glomerular Filtration Rate > 60, Glucose Level 110H, Uric Acid 4.7, Calcium Level 7.6L, Phosphorus Level 2.3L, Magnesium Level 1.4L, Total Bilirubin 0.4, Gamma Glutamyl Transpeptidase 136H, Aspartate Amino Transf (AST/ SGOT) 135H, Alanine Aminotransferase (ALT/SGPT) 228H, Alkaline Phosphatase 67, Total Creatine Kinase 927H, C-Reactive Protein, Quantitative 14.7H, Pro-B-Type Natriuretic Peptide 2857H, Total Protein 6.3L, Albumin 2.5L, Globulin 3.8, Albumin/Globulin Ratio 0.7L Height (Feet): 6 Height (Inches): 6.00 Weight (Pounds): 185 General Appearance: no apparent distress Objective no change JOSE EDWARDS Jan 30, 2017 10:15
--- NOTE | 2017-01-30 13:55 | Emergency Room Report ---
History of Present Illness General Chief Complaint: Substance Abuse Source: Patient, Medical Record Present Illness HPI 31-year-old male presents ED for evaluation. Patient brought in by EMS. Per EMS patient noted to be altered. Found on the street tonight. Patient screaming and agitated. Patient told EMS he is using drugs. Denies any chest pain or shortness of breath. Denies any fevers or chills. Unclear whether patient sustained head injury. No other aggravating or relieving factors. No other associated symptoms Allergies: Coded Allergies: PENICILLINS (Unverified Allergy, Unknown, 01/28/17) Patient History Past Medical History: psych hx Past Surgical History: none Pertinent Family History: none Social History: Reports: alcohol use, drug use, Denies: smoking Immunizations: UTD Reviewed Nursing Documentation: PMH: Agreed, PSxH: Agreed Nursing Documentation-PMH Past Medical History Deferred: Pt Cognitively Impaired Past Medical History: No History, Except For History Of Psychiatric Problem: Yes - multiple personality disorder Review of Systems All Other Systems: negative except mentioned in HPI Physical Exam Vital Signs Date Time Temp Pulse Resp B/P (MAP) Pulse Ox O2 Delivery O2 Flow Rate FiO2 01/28/17 02:02 100.0 124 20 92/54 98 Room Air Sp02 EP Interpretation: reviewed, normal General Appearance: lethargic, thin Head: normocephalic Eyes: bilateral eye normal inspection, bilateral eye PERRL ENT: normal ENT inspection Neck: normal inspection Respiratory: chest non-tender, lungs clear, normal breath sounds, speaking full sentences Cardiovascular #1: regular rate, rhythm, no edema Gastrointestinal: normal bowel sounds, non tender, soft, non-distended, no guarding, no rebound Rectal: deferred Genitourinary: no CVA tenderness Musculoskeletal: normal inspection Neurologic: other - lethargic Psychiatric: other - agigated Skin: normal inspection Lymphatic: normal inspection Medical Decision Making Diagnostic Impression: Primary Impression: Substance abuse ER Course Hospital Course 31-year-old M presents to ED with altered mental status. agitated Differential diagnoses include: Psychosis, EtOH, drug abuse Clinical course patient placed on stretcher. On front desk monitor. After initial history and physical ordered haldol/ativan. CT head CT brain shows no acute pathology, however there is motion artifact Patient now sedated and sleeping patient signed out to Dr Fuller pending clinical reassessment CT/MRI/US Diagnostic Results CT/MRI/US Diagnostic Results : Imaging Test Ordered: CT head Impression motion artifact noted, no acute process identified Last Vital Signs Date Time Temp Pulse Resp B/P (MAP) Pulse Ox O2 Delivery O2 Flow Rate FiO2 01/30/17 12:00 97.6 93 19 126/85 97 Room Air Disposition: ADMITTED INPATIENT Signed Out To: Dr Fuller Referrals: NOT CHOSEN IPA/,REFERRING (PCP) DOE POE M.D. Jan 30, 2017 13:55
--- NOTE | 2017-01-30 14:29 | Infectious Diseases Prog Note ---
Assessment/Plan Assessment/Plan Abx: Levofloxacin 01/28- Metronidazole 01/28- Assesment: AMS- due methamphetamine over dose Head CT: : Inflammatory change in the right maxillary sinus. Otherwise negative CT scan of the head without contrast material. Leukocytosis- likely reactive, possible sinusitis contributing. r/o aspiration pneumonia/pnuemonitis , improving -CXR p Low grade fever , resolved HIV ag/ab -preliminary positive, await confirmation and VL Possible R maxillary sinusitis Transaminitis (AST/ALT ~500s), improving- Hep C Ab+ve Abd/p CT : Lack of any contrast material considerably limits evaluation in this patient. Possible thickening of the colonic wall versus underdistention in the region of the sigmoid colon. Inflammatory disease is not excluded.Increased density in pericolonic fat in the right side of the abdomen. This could represent inflammatory change but this is not certain. Previous cholecystectomy. Splenomegaly.Basilar atelectasis. Neg : RPR Rhabdomyloysis- 2ry to above -CPK ~1900s, increasing NEL, improving- 2ry to above Plan: -Continue Levaquin and Flagyl # 3/5-7 for possible sinusitis -check EKG to monitor Qtc -f/u CXR and obtain u/a with reflex and BCx -f/u HIV ab confirmation, obtain HIV VL, , GC/CL -f/u cx -Monitor CBC/BMP, temperatures Hep C PCR CD4 Subjective Constitutional: Reports: fatigue, Denies: no symptoms, fever, chills, anorexia , drenching sweats, other Allergies: Coded Allergies: PENICILLINS (Unverified Allergy, Unknown, 01/28/17) Objective Vital Signs Last 24 Hour Vital Signs Date Time Temp Pulse Resp B/P (MAP) Pulse Ox O2 Delivery O2 Flow Rate FiO2 01/30/17 12:00 97.6 93 19 126/85 97 Room Air 01/30/17 10:00 84 32 125/83 99 Room Air 01/30/17 09:00 90 29 131/77 98 Room Air 01/30/17 08:00 98.2 90 16 119/80 98 Room Air 01/30/17 08:00 90 01/30/17 07:00 89 26 120/7 98 Room Air 01/30/17 06:00 92 26 119/66 98 Room Air 01/30/17 05:00 88 27 110/68 99 Room Air 01/30/17 04:15 91 01/30/17 04:00 98.7 90 29 119/68 97 Room Air 01/30/17 03:00 92 27 111/68 97 Room Air 01/30/17 02:00 92 16 126/81 97 Room Air 01/30/17 01:00 93 27 114/54 97 Room Air 01/30/17 00:22 94 01/30/17 00:00 98.7 91 26 117/78 97 Room Air 01/29/17 23:30 117/78 01/29/17 23:00 91 18 87/40 97 Room Air 01/29/17 22:00 93 26 112/81 95 Room Air 01/29/17 21:00 94 24 110/81 96 Room Air 01/29/17 20:00 98.3 94 26 98/63 100 Room Air 01/29/17 19:43 93 01/29/17 19:00 92 26 115/63 96 Room Air 01/29/17 17:00 91 22 110/54 99 Room Air 01/29/17 16:00 97.7 86 27 113/60 95 Room Air 01/29/17 16:00 83 01/29/17 15:00 92 27 96/69 96 Room Air Height (Feet): 6 Height (Inches): 6.00 Weight (Pounds): 185 HEENT: anicteric Respiratory/Chest: no respiratory distress Cardiovascular: regularly irregular Abdomen: no organomegaly Microbiology Date/Time Source Procedure Growth Status 01/28/17 08:00 Blood Blood Culture - Preliminary NO GROWTH AFTER 24 HOURS Resulted 01/28/17 07:40 Blood Blood Culture - Preliminary NO GROWTH AFTER 24 HOURS Resulted 01/28/17 11:00 Nasal Nares MRSA Culture - Final NO METHICILLIN RESISTANT STAPH AUREUS... Complete 01/28/17 11:00 Rectum VRE Culture - Final NO VANCOMYCIN RESISTANT ENTEROCOCCUS ... Complete Laboratory Tests Test 01/30/17 04:30 White Blood Count 14.0 K/UL (4.8-10.8) H Red Blood Count 3.48 M/UL (4.70-6.10) L Hemoglobin 11.3 G/DL (14.2-18.0) L Hematocrit 32.8 % (42.0-52.0) L Mean Corpuscular Volume 94 FL (80-99) Mean Corpuscular Hemoglobin 32.4 PG (27.0-31.0) H Mean Corpuscular Hemoglobin Concent 34.4 G/DL (32.0-36.0) Red Cell Distribution Width 12.3 % (11.6-14.8) Platelet Count 111 K/UL (150-450) L Mean Platelet Volume 6.7 FL (6.5-10.1) Neutrophils (%) (Auto) % (45.0-75.0) Lymphocytes (%) (Auto) % (20.0-45.0) Monocytes (%) (Auto) % (1.0-10.0) Eosinophils (%) (Auto) % (0.0-3.0) Basophils (%) (Auto) % (0.0-2.0) Differential Total Cells Counted 100 Neutrophils % (Manual) 86 % (45-75) H Lymphocytes % (Manual) 13 % (20-45) L Monocytes % (Manual) 1 % (1-10) Eosinophils % (Manual) 0 % (0-3) Basophils % (Manual) 0 % (0-2) Band Neutrophils 0 % (0-8) Platelet Estimate Decreased L Platelet Morphology Normal Sodium Level 140 MMOL/L (136-145) Potassium Level 3.3 MMOL/L (3.5-5.1) L Chloride Level 110 MMOL/L (98-107) H Carbon Dioxide Level 20 MMOL/L (21-32) L Anion Gap 10 mmol/L (5-15) Blood Urea Nitrogen 16 mg/dL (7-18) Creatinine 1.1 MG/DL (0.55-1.30) Estimat Glomerular Filtration Rate > 60 mL/min (>60) Glucose Level 110 MG/DL (74-106) H Uric Acid 4.7 MG/DL (2.6-7.2) Calcium Level 7.6 MG/DL (8.5-10.1) L Phosphorus Level 2.3 MG/DL (2.5-4.9) L Magnesium Level 1.4 MG/DL (1.8-2.4) L Total Bilirubin 0.4 MG/DL (0.2-1.0) Gamma Glutamyl Transpeptidase 136 U/L (5-85) H Aspartate Amino Transf (AST/SGOT) 135 U/L (15-37) H Alanine Aminotransferase (ALT/SGPT) 228 U/L (12-78) H Alkaline Phosphatase 67 U/L (46-116) Total Creatine Kinase 927 U/L (26-308) H C-Reactive Protein, Quantitative 14.7 mg/dL (0.00-0.90) H Pro-B-Type Natriuretic Peptide 2857 pg/mL (0-125) H Total Protein 6.3 G/DL (6.4-8.2) L Albumin 2.5 G/DL (3.4-5.0) L Globulin 3.8 g/dL Albumin/Globulin Ratio 0.7 (1.0-2.7) L Current Medications Medications (Trade) Dose Ordered Sig/Purvi Route PRN Reason Start Time Stop Time Status Last Admin Dose Admin Dextrose (Dextrose 50%) STAT PRN IV Hypoglycemia 01/30/17 11:30 02/27/17 11:29 Dextrose/Sodium Chloride 1,000 ml @ 150 mls/hr Q6H40M IV 01/30/17 11:30 02/28/17 11:29 01/30/17 12:41 Levofloxacin 100 ml @ 100 mls/hr Q24H IVPB 01/31/17 09:00 02/05/17 08:59 Metronidazole 100 ml @ 100 mls/hr Q8HR IVPB 01/30/17 14:00 02/04/17 14:59 Pantoprazole (Protonix) 40 mg ACBREAKFAST ORAL 01/30/17 11:30 03/01/17 11:29 01/30/17 12:36 Potassium Chloride 40 meq/ Sodium Chloride 570 ml @ 142.5 mls/ hr ONCE ONCE IVPB 01/30/17 13:15 01/30/17 17:14 01/30/17 12:51 Sodium Phosphate 30 mm/Sodium Chloride 285 ml @ 47.5 mls/hr ONCE ONCE IV 01/30/17 13:15 01/30/17 19:14 01/30/17 12:51 BILLY MURRAY M.D. Jan 30, 2017 14:29
--- NOTE | 2017-01-30 14:43 | Internal Med Progress Note ---
Subjective Date of Service: Jan 30, 2017 Physician Name Suhail Olmstead Attending Physician Samir [place] MD Current Medications Medications (Trade) Dose Ordered Sig/Purvi Route PRN Reason Start Time Stop Time Status Last Admin Dose Admin Dextrose (Dextrose 50%) STAT PRN IV Hypoglycemia 01/30/17 11:30 02/27/17 11:29 Dextrose/Sodium Chloride 1,000 ml @ 150 mls/hr Q6H40M IV 01/30/17 11:30 02/28/17 11:29 01/30/17 12:41 Levofloxacin 100 ml @ 100 mls/hr Q24H IVPB 01/31/17 09:00 02/05/17 08:59 Metronidazole 100 ml @ 100 mls/hr Q8HR IVPB 01/30/17 14:00 02/04/17 14:59 Pantoprazole (Protonix) 40 mg ACBREAKFAST ORAL 01/30/17 11:30 03/01/17 11:29 01/30/17 12:36 Potassium Chloride 40 meq/ Sodium Chloride 570 ml @ 142.5 mls/ hr ONCE ONCE IVPB 01/30/17 13:15 01/30/17 17:14 01/30/17 12:51 Sodium Phosphate 30 mm/Sodium Chloride 285 ml @ 47.5 mls/hr ONCE ONCE IV 01/30/17 13:15 01/30/17 19:14 01/30/17 12:51 Allergies: Coded Allergies: PENICILLINS (Unverified Allergy, Unknown, 01/28/17) Subjective 31 YO M admitted with altered mental status and rhabdomyolysis. Now elevated liver function tests and HIV preliminary positive. Continues lethargic; however more arousable today.. Cover for Int Med-Dr [place]. Med/surg Objective Last Vital Signs Date Time Temp Pulse Resp B/P (MAP) Pulse Ox O2 Delivery O2 Flow Rate FiO2 01/30/17 12:00 97.6 93 19 126/85 97 Room Air Laboratory Tests Test 01/30/17 04:30 White Blood Count 14.0 K/UL (4.8-10.8) H Red Blood Count 3.48 M/UL (4.70-6.10) L Hemoglobin 11.3 G/DL (14.2-18.0) L Hematocrit 32.8 % (42.0-52.0) L Mean Corpuscular Volume 94 FL (80-99) Mean Corpuscular Hemoglobin 32.4 PG (27.0-31.0) H Mean Corpuscular Hemoglobin Concent 34.4 G/DL (32.0-36.0) Red Cell Distribution Width 12.3 % (11.6-14.8) Platelet Count 111 K/UL (150-450) L Mean Platelet Volume 6.7 FL (6.5-10.1) Neutrophils (%) (Auto) % (45.0-75.0) Lymphocytes (%) (Auto) % (20.0-45.0) Monocytes (%) (Auto) % (1.0-10.0) Eosinophils (%) (Auto) % (0.0-3.0) Basophils (%) (Auto) % (0.0-2.0) Differential Total Cells Counted 100 Neutrophils % (Manual) 86 % (45-75) H Lymphocytes % (Manual) 13 % (20-45) L Monocytes % (Manual) 1 % (1-10) Eosinophils % (Manual) 0 % (0-3) Basophils % (Manual) 0 % (0-2) Band Neutrophils 0 % (0-8) Platelet Estimate Decreased L Platelet Morphology Normal Sodium Level 140 MMOL/L (136-145) Potassium Level 3.3 MMOL/L (3.5-5.1) L Chloride Level 110 MMOL/L (98-107) H Carbon Dioxide Level 20 MMOL/L (21-32) L Anion Gap 10 mmol/L (5-15) Blood Urea Nitrogen 16 mg/dL (7-18) Creatinine 1.1 MG/DL (0.55-1.30) Estimat Glomerular Filtration Rate > 60 mL/min (>60) Glucose Level 110 MG/DL (74-106) H Uric Acid 4.7 MG/DL (2.6-7.2) Calcium Level 7.6 MG/DL (8.5-10.1) L Phosphorus Level 2.3 MG/DL (2.5-4.9) L Magnesium Level 1.4 MG/DL (1.8-2.4) L Total Bilirubin 0.4 MG/DL (0.2-1.0) Gamma Glutamyl Transpeptidase 136 U/L (5-85) H Aspartate Amino Transf (AST/SGOT) 135 U/L (15-37) H Alanine Aminotransferase (ALT/SGPT) 228 U/L (12-78) H Alkaline Phosphatase 67 U/L (46-116) Total Creatine Kinase 927 U/L (26-308) H C-Reactive Protein, Quantitative 14.7 mg/dL (0.00-0.90) H Pro-B-Type Natriuretic Peptide 2857 pg/mL (0-125) H Total Protein 6.3 G/DL (6.4-8.2) L Albumin 2.5 G/DL (3.4-5.0) L Globulin 3.8 g/dL Albumin/Globulin Ratio 0.7 (1.0-2.7) L Microbiology Date/Time Source Procedure Growth Status 01/28/17 08:00 Blood Blood Culture - Preliminary NO GROWTH AFTER 24 HOURS Resulted 01/28/17 07:40 Blood Blood Culture - Preliminary NO GROWTH AFTER 24 HOURS Resulted 01/28/17 11:00 Nasal Nares MRSA Culture - Final NO METHICILLIN RESISTANT STAPH AUREUS... Complete 01/28/17 11:00 Rectum VRE Culture - Final NO VANCOMYCIN RESISTANT ENTEROCOCCUS ... Complete Intake and Output 01/30/17 01/31/17 19:00 07:00 Intake Total 1270 ml Output Total 1200 ml Balance 70 ml Intake Oral 780 ml IV Total 450 ml Other 40 ml Output Urine Total 1200 ml Assessment/Plan Problem List: (1) HIV (human immunodeficiency virus infection) Assessment & Plan: Preliminary positive. See ID note. (2) Altered mental status Assessment & Plan: See neurology note. (3) Colitis Assessment & Plan: Continue levaquin and flagyl. See GI note. 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 See GI note. (6) Acute encephalopathy (7) Rhabdomyolysis Assessment & Plan: CPK increasing. Cont IV fluid. (8) Renal failure Assessment & Plan: Secondary to dehydration and/or rhabdomyolysis. See nephrology note Status: not improved SUHAIL OLMSTEAD Jan 30, 2017 14:43
[2017-01-30] MEDS ORDERED: D5 1/2NS 1000ml IV ONE (15:15)
[2017-01-30] MEDS ORDERED: Tubing IV Secondary IV ONE (15:15)
[2017-01-31] VITALS: BP 135/78
[2017-01-31] MEDS: D5 1/2NS 1,000 ML IV SCH ×4 (00:50→20:56)
[2017-01-31 04:22] VITALS: BP 115/74
--- NOTE | 2017-01-31 07:21 | General Progress Note ---
Assessment/Plan Problem List: (1) Elevated LFTs ICD Codes: R79.89 - Other specified abnormal findings of blood chemistry SNOMED: 370147571, 638973788 (2) Acute kidney injury ICD Codes: N17.9 - Acute kidney failure, unspecified SNOMED: 25289205 (3) Substance abuse ICD Codes: F19.10 - Other psychoactive substance abuse, uncomplicated SNOMED: 96652392 (4) Rhabdomyolysis ICD Codes: M62.82 - Rhabdomyolysis SNOMED: 341029477 Assessment/Plan supportive care fu labs fu LFTS fu nephrology Subjective ROS Limited/Unobtainable: Yes Allergies: Coded Allergies: PENICILLINS (Unverified Allergy, Unknown, 01/28/17) Subjective no event Objective Last 24 Hour Vital Signs Date Time Temp Pulse Resp B/P (MAP) Pulse Ox O2 Delivery O2 Flow Rate FiO2 01/31/17 04:22 98.1 81 20 115/74 97 01/31/17 00:00 97.9 93 20 135/78 96 Room Air 01/30/17 20:00 99.2 95 19 136/76 96 Room Air 01/30/17 16:00 98.9 94 18 116/68 98 Room Air 01/30/17 12:00 97.6 93 19 126/85 97 Room Air 01/30/17 10:00 84 32 125/83 99 Room Air 01/30/17 09:00 90 29 131/77 98 Room Air 01/30/17 08:00 98.2 90 16 119/80 98 Room Air 01/30/17 08:00 90 Height (Feet): 6 Height (Inches): 6.00 Weight (Pounds): 188 General Appearance: alert EENT: normal ENT inspection Neck: supple Cardiovascular: normal rate Respiratory/Chest: decreased breath sounds Abdomen: normal bowel sounds, non tender, soft Extremities: non-tender TREY NUÑEZ Jan 31, 2017 07:21
[2017-01-31 07:46] VITALS: BP 130/76
[2017-01-31 07:47] LABS: BASOPHILS % (AUTO) 0.3 % (0.0-2.0); EOSINOPHILS % (AUTO) 1.3 % (0.0-3.0); LYMPHOCYTES % (AUTO) 10.7 % (20.0-45.0); MEAN CORPUSCULAR HEMOGLOBIN 31.8 PG (27.0-31.0); MEAN CORPUSCULAR HGB CONC 34.4 G/DL (32.0-36.0); MEAN CORPUSCULAR VOLUME 92 FL (80-99); MEAN PLATELET VOLUME 5.8 FL (6.5-10.1); MONOCYTES % (AUTO) 3.7 % (1.0-10.0); PLATELET COUNT 138 K/UL (150-450); RED BLOOD COUNT 3.95 M/UL (4.70-6.10); RED CELL DISTRIBUTION WIDTH 11.9 % (11.6-14.8); WHITE BLOOD COUNT 10.2 K/UL (4.8-10.8)
[2017-01-31 08:31] LABS: ALANINE AMINOTRANSFERASE 170 U/L (12-78); ALBUMIN/GLOBULIN RATIO 0.6 (1.0-2.7); ANION GAP 7 mmol/L (5-15); ASPARTATE AMINO TRANSFERASE 86 U/L (15-37); CALCIUM 7.9 MG/DL (8.5-10.1); CARBON DIOXIDE 25 MMOL/L (21-32); CHLORIDE 109 MMOL/L (98-107); GLOMERULAR FILTRATION RATE > 60 mL/min (>60); POTASSIUM 3.8 MMOL/L (3.5-5.1); SODIUM 141 MMOL/L (136-145); TOTAL PROTEIN 6.8 G/DL (6.4-8.2)
[2017-01-31 08:34] LABS: MAGNESIUM 1.2 MG/DL (1.8-2.4); PHOSPHORUS 3.2 MG/DL (2.5-4.9)
[2017-01-31] MEDS ORDERED: D5 1/2NS 1000ml IV ONE ×3 (09:09→21:18)
[2017-01-31] MEDS ORDERED: Tubing IV Secondary IV ONE ×3 (09:09→21:18)
[2017-01-31] MEDS ORDERED: NS 500ML ONE (09:09)
[2017-01-31 09:10] LABS: CRP QUANT 6.7 mg/dL (0.00-0.90)
--- NOTE | 2017-01-31 11:04 | Nephrology Progress Note ---
Assessment/Plan Problem List: (1) Renal failure (2) Rhabdomyolysis (3) Acute encephalopathy (4) HIV (human immunodeficiency virus infection) (5) Substance abuse Assessment 1. Altered mental status. multifactorial 2. Dehydration. 3. Rhabdomyolysis. 4. Renal failure. Cr lowering 5. Elevated liver function test. likely due to Rhabdo 6. Methamphetamine abuse. 7. HIV status Plan Mycelex for thrush Vigorous hydration monitor renal parameters and Avoid nephrotoxics per orders Objective Objective Last 24 Hour Vital Signs Date Time Temp Pulse Resp B/P (MAP) Pulse Ox O2 Delivery O2 Flow Rate FiO2 01/31/17 07:46 97.3 84 20 130/76 98 Room Air 01/31/17 04:22 98.1 81 20 115/74 97 01/31/17 00:00 97.9 93 20 135/78 96 Room Air 01/30/17 20:00 99.2 95 19 136/76 96 Room Air 01/30/17 16:00 98.9 94 18 116/68 98 Room Air 01/30/17 12:00 97.6 93 19 126/85 97 Room Air Laboratory Tests 01/31/17 07:27: White Blood Count 10.2, Red Blood Count 3.95L, Hemoglobin 12.5L, Hematocrit 36.4L, Mean Corpuscular Volume 92, Mean Corpuscular Hemoglobin 31.8H, Mean Corpuscular Hemoglobin Concent 34.4, Red Cell Distribution Width 11.9, Platelet Count 138L, Mean Platelet Volume 5.8L, Neutrophils (%) (Auto) 84.0H, Lymphocytes (%) (Auto) 10.7L, Monocytes (%) (Auto) 3.7, Eosinophils (%) (Auto) 1.3, Basophils (%) (Auto) 0.3, Sodium Level 141, Potassium Level 3.8, Chloride Level 109H, Carbon Dioxide Level 25, Anion Gap 7, Blood Urea Nitrogen 6L, Creatinine 1.0, Estimat Glomerular Filtration Rate > 60, Glucose Level 101, Calcium Level 7.9L, Phosphorus Level 3.2, Magnesium Level 1.2L, Total Bilirubin 0.4, Gamma Glutamyl Transpeptidase 165H, Aspartate Amino Transf (AST/SGOT) 86H, Alanine Aminotransferase (ALT/SGPT) 170H, Alkaline Phosphatase 82, Total Creatine Kinase 384H, C-Reactive Protein, Quantitative 6.7H, Total Protein 6.8, Albumin 2.6L, Globulin 4.2, Albumin/Globulin Ratio 0.6L, Hepatitis C Antibody [ Pending], Hepatitis C RNA (PCR) IUs/ml [Pending], Hepatitis C RNA (PCR) log IUs/ ml [Pending] Height (Feet): 6 Height (Inches): 6.00 Weight (Pounds): 188 General Appearance: no apparent distress, lethargic EENT: other - thrush Cardiovascular: normal rate Respiratory/Chest: decreased breath sounds Abdomen: soft Objective no change JOSE EDWARDS Jan 31, 2017 11:04
[2017-01-31 11:17] LABS: CD3 ABSOLUTE 912 /uL (622-2402); CD4 ABSOLUTE 419 /uL (359-1519); CD8 ABSOLUTE 468 /uL (109-897); LYMPHOCYTES ABSOLUTE 1.2 x10E3/uL (0.7-3.1); LYMPHS 10 % (Not Estab.); WBC 13.2 x10E3/uL (3.4-10.8)
[2017-01-31 11:37] VITALS: BP 125/76
[2017-01-31] MEDS ORDERED: Potassium Chloride 40 MEQ in Sodium Chloride 500ML 550 ML IVPB ONE (12:30)
[2017-01-31] MEDS ORDERED: Sodium Phosphate 30 MM in NS 275 ML IV ONE (12:30)
--- NOTE | 2017-01-31 14:16 | Internal Med Progress Note ---
Subjective Date of Service: Jan 31, 2017 Physician Name Mike Olmstead Attending Physician Samir [place] MD Current Medications Medications (Trade) Dose Ordered Sig/Purvi Route PRN Reason Start Time Stop Time Status Last Admin Dose Admin Clotrimazole (Mycelex Rylan) 10 mg FIVE TIMES A DAY AYAN 01/31/17 13:00 02/07/17 12:59 Dextrose (Dextrose 50%) STAT PRN IV Hypoglycemia 01/30/17 11:30 02/27/17 11:29 Dextrose/Sodium Chloride 1,000 ml @ 75 mls/hr [id number] IV 01/31/17 11:30 03/02/17 11:29 Levofloxacin 100 ml @ 100 mls/hr Q24H IVPB 01/31/17 09:00 02/05/17 08:59 01/31/17 08:33 Metronidazole 100 ml @ 100 mls/hr Q8HR IVPB 01/30/17 14:00 02/04/17 14:59 01/31/17 06:52 Pantoprazole (Protonix) 40 mg ACBREAKFAST ORAL 01/30/17 11:30 03/01/17 11:29 01/31/17 06:51 Allergies: Coded Allergies: PENICILLINS (Unverified Allergy, Unknown, 01/28/17) ROS Limited/Unobtainable: Yes Subjective 31 YO M admitted with altered mental status and rhabdomyolysis. Now elevated liver function tests and HIV preliminary positive. Continues lethargic; however more arousable today.. Cover for Int Med-Dr [place]. Med/surg Objective Last Vital Signs Date Time Temp Pulse Resp B/P (MAP) Pulse Ox O2 Delivery O2 Flow Rate FiO2 01/31/17 11:37 97.6 81 18 125/76 100 Room Air Laboratory Tests Test 01/31/17 07:27 White Blood Count 10.2 K/UL (4.8-10.8) Red Blood Count 3.95 M/UL (4.70-6.10) L Hemoglobin 12.5 G/DL (14.2-18.0) L Hematocrit 36.4 % (42.0-52.0) L Mean Corpuscular Volume 92 FL (80-99) Mean Corpuscular Hemoglobin 31.8 PG (27.0-31.0) H Mean Corpuscular Hemoglobin Concent 34.4 G/DL (32.0-36.0) Red Cell Distribution Width 11.9 % (11.6-14.8) Platelet Count 138 K/UL (150-450) L Mean Platelet Volume 5.8 FL (6.5-10.1) L Neutrophils (%) (Auto) 84.0 % (45.0-75.0) H Lymphocytes (%) (Auto) 10.7 % (20.0-45.0) L Monocytes (%) (Auto) 3.7 % (1.0-10.0) Eosinophils (%) (Auto) 1.3 % (0.0-3.0) Basophils (%) (Auto) 0.3 % (0.0-2.0) Sodium Level 141 MMOL/L (136-145) Potassium Level 3.8 MMOL/L (3.5-5.1) Chloride Level 109 MMOL/L (98-107) H Carbon Dioxide Level 25 MMOL/L (21-32) Anion Gap 7 mmol/L (5-15) Blood Urea Nitrogen 6 mg/dL (7-18) L Creatinine 1.0 MG/DL (0.55-1.30) Estimat Glomerular Filtration Rate > 60 mL/min (>60) Glucose Level 101 MG/DL (74-106) Calcium Level 7.9 MG/DL (8.5-10.1) L Phosphorus Level 3.2 MG/DL (2.5-4.9) Magnesium Level 1.2 MG/DL (1.8-2.4) L Total Bilirubin 0.4 MG/DL (0.2-1.0) Gamma Glutamyl Transpeptidase 165 U/L (5-85) H Aspartate Amino Transf (AST/SGOT) 86 U/L (15-37) H Alanine Aminotransferase (ALT/SGPT) 170 U/L (12-78) H Alkaline Phosphatase 82 U/L (46-116) Total Creatine Kinase 384 U/L (26-308) H C-Reactive Protein, Quantitative 6.7 mg/dL (0.00-0.90) H Total Protein 6.8 G/DL (6.4-8.2) Albumin 2.6 G/DL (3.4-5.0) L Globulin 4.2 g/dL Albumin/Globulin Ratio 0.6 (1.0-2.7) L Hepatitis C Antibody Pending Hepatitis C RNA (PCR) IUs/ml Pending Hepatitis C RNA (PCR) log IUs/ml Pending Microbiology Date/Time Source Procedure Growth Status 01/29/17 11:40 Blood Blood Culture - Preliminary NO GROWTH AFTER 24 HOURS Resulted 01/29/17 11:30 Blood Blood Culture - Preliminary NO GROWTH AFTER 24 HOURS Resulted Objective General Appearance: lethargic EENT: PERRL/EOMI, normal ENT inspection Neck: non-tender, normal alignment, supple Cardiovascular: normal peripheral pulses, normal rate, regular rhythm, no gallop/murmur, no JVD Respiratory/Chest: chest wall non-tender, lungs clear, normal breath sounds, no respiratory distress, no accessory muscle use Abdomen: normal bowel sounds, non tender, soft, no organomegaly, no mass, abnormal bowel sounds Extremities: normal range of motion Neurologic: systems testing laboratory technician II-XII grossly normal Skin: normal pigmentation, warm/dry Assessment/Plan Problem List: (1) HIV (human immunodeficiency virus infection) Assessment & Plan: Preliminary positive; await confirmation. See ID note. (2) Altered mental status Assessment & Plan: See neurology note. (3) Colitis Assessment & Plan: Continue levaquin and flagyl. See GI note. 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 See GI note. (6) Acute encephalopathy (7) Rhabdomyolysis Assessment & Plan: CPK increasing. Cont IV fluid. (8) Renal failure Assessment & Plan: Secondary to dehydration and/or rhabdomyolysis. See nephrology note Status: not improved MIKE OLMSTEAD Jan 31, 2017 14:16
--- NOTE | 2017-01-31 14:30 | Pulmonology Progress Note ---
Assessment/Plan Problems: (1) Acute encephalopathy (2) Renal failure (3) Rhabdomyolysis (4) Elevated LFTs (5) HIV (human immunodeficiency virus infection) (6) Hepatitis C (7) Substance abuse Assessment/Plan improving check electrolytes pt/ot dc planning Subjective ROS Limited/Unobtainable: No Constitutional: Reports: no symptoms HEENT: Repors: no symptoms Respiratory: Reports: no symptoms Allergies: Coded Allergies: PENICILLINS (Unverified Allergy, Unknown, 01/28/17) Objective Last 24 Hour Vital Signs Date Time Temp Pulse Resp B/P (MAP) Pulse Ox O2 Delivery O2 Flow Rate FiO2 01/31/17 11:37 97.6 81 18 125/76 100 Room Air 01/31/17 07:46 97.3 84 20 130/76 98 Room Air 01/31/17 04:22 98.1 81 20 115/74 97 01/31/17 00:00 97.9 93 20 135/78 96 Room Air 01/30/17 20:00 99.2 95 19 136/76 96 Room Air 01/30/17 16:00 98.9 94 18 116/68 98 Room Air General Appearance: WD/WN HEENT: normocephalic, atraumatic Respiratory/Chest: chest wall non-tender, lungs clear Cardiovascular: normal peripheral pulses, normal rate Abdomen: normal bowel sounds, soft, non tender Genitourinary: normal external genitalia Extremities: no clubbing Skin: no rash Microbiology Date/Time Source Procedure Growth Status 01/29/17 11:40 Blood Blood Culture - Preliminary NO GROWTH AFTER 24 HOURS Resulted 01/29/17 11:30 Blood Blood Culture - Preliminary NO GROWTH AFTER 24 HOURS Resulted Laboratory Tests 01/31/17 07:27: White Blood Count 10.2, Red Blood Count 3.95L, Hemoglobin 12.5L, Hematocrit 36.4L, Mean Corpuscular Volume 92, Mean Corpuscular Hemoglobin 31.8H, Mean Corpuscular Hemoglobin Concent 34.4, Red Cell Distribution Width 11.9, Platelet Count 138L, Mean Platelet Volume 5.8L, Neutrophils (%) (Auto) 84.0H, Lymphocytes (%) (Auto) 10.7L, Monocytes (%) (Auto) 3.7, Eosinophils (%) (Auto) 1.3, Basophils (%) (Auto) 0.3, Sodium Level 141, Potassium Level 3.8, Chloride Level 109H, Carbon Dioxide Level 25, Anion Gap 7, Blood Urea Nitrogen 6L, Creatinine 1.0, Estimat Glomerular Filtration Rate > 60, Glucose Level 101, Calcium Level 7.9L, Phosphorus Level 3.2, Magnesium Level 1.2L, Total Bilirubin 0.4, Gamma Glutamyl Transpeptidase 165H, Aspartate Amino Transf (AST/SGOT) 86H, Alanine Aminotransferase (ALT/SGPT) 170H, Alkaline Phosphatase 82, Total Creatine Kinase 384H, C-Reactive Protein, Quantitative 6.7H, Total Protein 6.8, Albumin 2.6L, Globulin 4.2, Albumin/Globulin Ratio 0.6L, Hepatitis C Antibody [ Pending], Hepatitis C RNA (PCR) IUs/ml [Pending], Hepatitis C RNA (PCR) log IUs/ ml [Pending] Current Medications Medications (Trade) Dose Ordered Sig/Purvi Route PRN Reason Start Time Stop Time Status Last Admin Dose Admin Clotrimazole (Mycelex Rylan) 10 mg FIVE TIMES A DAY AYAN 01/31/17 13:00 02/07/17 12:59 Dextrose (Dextrose 50%) STAT PRN IV Hypoglycemia 01/30/17 11:30 02/27/17 11:29 Dextrose/Sodium Chloride 1,000 ml @ 75 mls/hr [id number] IV 01/31/17 11:30 03/02/17 11:29 Levofloxacin 100 ml @ 100 mls/hr Q24H IVPB 01/31/17 09:00 02/05/17 08:59 01/31/17 08:33 Metronidazole 100 ml @ 100 mls/hr Q8HR IVPB 01/30/17 14:00 02/04/17 14:59 01/31/17 06:52 Pantoprazole (Protonix) 40 mg ACBREAKFAST ORAL 01/30/17 11:30 03/01/17 11:29 01/31/17 06:51 NAYELY MCMULLEN Jan 31, 2017 14:30
--- NOTE | 2017-01-31 15:35 | Cardiology Report ---
APPROVED REPORT EKG Measurement Heart [id number] [place] [id number] Normal sinus rhythm Normal ECG
--- NOTE | 2017-01-31 15:39 | Cardiology Report ---
APPROVED REPORT EKG Measurement Heart [id number] [place] [id number] [id number] Normal sinus rhythm Normal ECG
[2017-01-31 15:45] VITALS: BP 140/96
[2017-01-31 20:00] VITALS: BP 141/95
[2017-02-01] VITALS (7 sets, daily range): BP systolic 114–144; BP diastolic 65–95
[2017-02-01 07:09] LABS: BASOPHILS % (AUTO) 1.2 % (0.0-2.0); EOSINOPHILS % (AUTO) 4.7 % (0.0-3.0); LYMPHOCYTES % (AUTO) 15.9 % (20.0-45.0); MEAN CORPUSCULAR HEMOGLOBIN 32.2 PG (27.0-31.0); MEAN CORPUSCULAR HGB CONC 35.4 G/DL (32.0-36.0); MEAN CORPUSCULAR VOLUME 91 FL (80-99); MEAN PLATELET VOLUME 5.8 FL (6.5-10.1); MONOCYTES % (AUTO) 6.9 % (1.0-10.0); NEUTROPHILS % (AUTO) 71.3 % (45.0-75.0); PLATELET COUNT 159 K/UL (150-450); RED BLOOD COUNT 4.14 M/UL (4.70-6.10); RED CELL DISTRIBUTION WIDTH 11.2 % (11.6-14.8); WHITE BLOOD COUNT 6.5 K/UL (4.8-10.8)
[2017-02-01 07:26] LABS: ALANINE AMINOTRANSFERASE 135 U/L (12-78); ALBUMIN/GLOBULIN RATIO 0.6 (1.0-2.7); ANION GAP 8 mmol/L (5-15); ASPARTATE AMINO TRANSFERASE 63 U/L (15-37); CALCIUM 8.2 MG/DL (8.5-10.1); CARBON DIOXIDE 25 MMOL/L (21-32); CHLORIDE 106 MMOL/L (98-107); CREATININE 0.9 MG/DL (0.55-1.30); GLOMERULAR FILTRATION RATE > 60 mL/min (>60); POTASSIUM 3.6 MMOL/L (3.5-5.1); SODIUM 139 MMOL/L (136-145)
[2017-02-01 07:58] LABS: CRP QUANT 3.7 mg/dL (0.00-0.90); MAGNESIUM 1.5 MG/DL (1.8-2.4); PHOSPHORUS 3.7 MG/DL (2.5-4.9)
--- NOTE | 2017-02-01 10:49 | GI Progress Note ---
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 Plata. Assessment/Plan utox positive for amphetamines supportive care FLD, patient cannot chew at this time cont clotrimazole PO hydration electrolyte replacement follow LFTs fu labs Subjective Gastrointestinal/Abdominal: Reports: no symptoms Subjective mouth swollen hard to swallow Objective Last 24 Hour Vital Signs Date Time Temp Pulse Resp B/P (MAP) Pulse Ox O2 Delivery O2 Flow Rate FiO2 02/01/17 10:04 98.1 74 18 139/94 97 Room Air 02/01/17 09:22 97 Room Air 02/01/17 08:00 98.1 74 18 139/94 Room Air 02/01/17 08:00 96.4 91 18 114/91 T-piece 02/01/17 04:00 98.9 59 18 144/65 100 Room Air 02/01/17 00:00 98.0 80 18 139/92 97 Room Air 01/31/17 20:00 98.7 85 18 141/95 98 Room Air 01/31/17 15:45 98.2 81 20 140/96 99 Room Air 01/31/17 11:37 97.6 81 18 125/76 100 Room Air Laboratory Tests Test 02/01/17 05:10 White Blood Count 6.5 K/UL (4.8-10.8) Red Blood Count 4.14 M/UL (4.70-6.10) L Hemoglobin 13.3 G/DL (14.2-18.0) L Hematocrit 37.7 % (42.0-52.0) L Mean Corpuscular Volume 91 FL (80-99) Mean Corpuscular Hemoglobin 32.2 PG (27.0-31.0) H Mean Corpuscular Hemoglobin Concent 35.4 G/DL (32.0-36.0) Red Cell Distribution Width 11.2 % (11.6-14.8) L Platelet Count 159 K/UL (150-450) Mean Platelet Volume 5.8 FL (6.5-10.1) L Neutrophils (%) (Auto) 71.3 % (45.0-75.0) Lymphocytes (%) (Auto) 15.9 % (20.0-45.0) L Monocytes (%) (Auto) 6.9 % (1.0-10.0) Eosinophils (%) (Auto) 4.7 % (0.0-3.0) H Basophils (%) (Auto) 1.2 % (0.0-2.0) Sodium Level 139 MMOL/L (136-145) Potassium Level 3.6 MMOL/L (3.5-5.1) Chloride Level 106 MMOL/L (98-107) Carbon Dioxide Level 25 MMOL/L (21-32) Anion Gap 8 mmol/L (5-15) Blood Urea Nitrogen 6 mg/dL (7-18) L Creatinine 0.9 MG/DL (0.55-1.30) Estimat Glomerular Filtration Rate > 60 mL/min (>60) Glucose Level 92 MG/DL (74-106) Calcium Level 8.2 MG/DL (8.5-10.1) L Phosphorus Level 3.7 MG/DL (2.5-4.9) Magnesium Level 1.5 MG/DL (1.8-2.4) L Total Bilirubin 0.4 MG/DL (0.2-1.0) Aspartate Amino Transf (AST/SGOT) 63 U/L (15-37) H Alanine Aminotransferase (ALT/SGPT) 135 U/L (12-78) H Alkaline Phosphatase 80 U/L (46-116) Total Creatine Kinase 173 U/L (26-308) C-Reactive Protein, Quantitative 3.7 mg/dL (0.00-0.90) H Total Protein 7.0 G/DL (6.4-8.2) Albumin 2.6 G/DL (3.4-5.0) L Globulin 4.4 g/dL Albumin/Globulin Ratio 0.6 (1.0-2.7) L Height (Feet): 6 Height (Inches): 6.00 Weight (Pounds): 177 General Appearance: WD/WN, no apparent distress, alert Cardiovascular: normal rate Respiratory/Chest: normal breath sounds, no respiratory distress Abdominal Exam: normal bowel sounds, non tender, soft Extremities: normal range of motion, non-tender Mary Jimenez N.P. Feb 01, 2017 10:49
--- NOTE | 2017-02-01 11:17 | Nephrology Progress Note ---
Assessment/Plan Problem List: (1) Renal failure (2) Rhabdomyolysis (3) Acute encephalopathy (4) HIV (human immunodeficiency virus infection) (5) Substance abuse Assessment 1. Altered mental status. multifactorial improved 2. Dehydration. resolved 3. Rhabdomyolysis. resolved 4. Renal failure. Cr lowering, resolved 5. Elevated liver function test. likely due to Rhabdo improved 6. Methamphetamine abuse. 7. HIV status Plan DC IV fluid- Levaquin to PO Mycelex for thrush monitor renal parameters and Avoid nephrotoxics per orders ? DC planning?? Subjective ROS Limited/Unobtainable: No Constitutional: Reports: malaise Objective Objective Last 24 Hour Vital Signs Date Time Temp Pulse Resp B/P (MAP) Pulse Ox O2 Delivery O2 Flow Rate FiO2 02/01/17 10:04 98.1 74 18 139/94 97 Room Air 02/01/17 09:22 97 Room Air 02/01/17 08:00 98.1 74 18 139/94 Room Air 02/01/17 08:00 96.4 91 18 114/91 T-piece 02/01/17 04:00 98.9 59 18 144/65 100 Room Air 02/01/17 00:00 98.0 80 18 139/92 97 Room Air 01/31/17 20:00 98.7 85 18 141/95 98 Room Air 01/31/17 15:45 98.2 81 20 140/96 99 Room Air 01/31/17 11:37 97.6 81 18 125/76 100 Room Air Laboratory Tests 02/01/17 05:10: White Blood Count 6.5, Red Blood Count 4.14L, Hemoglobin 13.3L, Hematocrit 37.7L , Mean Corpuscular Volume 91, Mean Corpuscular Hemoglobin 32.2H, Mean Corpuscular Hemoglobin Concent 35.4, Red Cell Distribution Width 11.2L, Platelet Count 159, Mean Platelet Volume 5.8L, Neutrophils (%) (Auto) 71.3, Lymphocytes (%) (Auto) 15.9L, Monocytes (%) (Auto) 6.9, Eosinophils (%) (Auto) 4.7H, Basophils (%) (Auto) 1.2, Sodium Level 139, Potassium Level 3.6, Chloride Level 106, Carbon Dioxide Level 25, Anion Gap 8, Blood Urea Nitrogen 6L, Creatinine 0.9, Estimat Glomerular Filtration Rate > 60, Glucose Level 92, Calcium Level 8.2L, Phosphorus Level 3.7, Magnesium Level 1.5L, Total Bilirubin 0.4, Aspartate Amino Transf (AST/SGOT) 63H, Alanine Aminotransferase (ALT/SGPT) 135H, Alkaline Phosphatase 80, Total Creatine Kinase 173, C-Reactive Protein, Quantitative 3.7H, Total Protein 7.0, Albumin 2.6L, Globulin 4.4, Albumin/ Globulin Ratio 0.6L Height (Feet): 6 Height (Inches): 6.00 Weight (Pounds): 177 General Appearance: no apparent distress Objective no change JOSE EDWARDS Feb 01, 2017 11:17
--- NOTE | 2017-02-01 11:52 | Internal Med Progress Note ---
Subjective Date of Service: Feb 01, 2017 Physician Name Mike Olmstead Attending Physician Samir [place] MD Current Medications Medications (Trade) Dose Ordered Sig/Purvi Route PRN Reason Start Time Stop Time Status Last Admin Dose Admin Clotrimazole (Mycelex Rylan) 10 mg FIVE TIMES A DAY AYAN 01/31/17 13:00 02/07/17 12:59 02/01/17 09:26 Dextrose (Dextrose 50%) STAT PRN IV Hypoglycemia 01/30/17 11:30 02/27/17 11:29 Levofloxacin (Levaquin) 500 mg DAILY ORAL 02/02/17 09:00 02/09/17 08:59 Magnesium Sulfate 100 ml @ 100 mls/hr Q1H IVPB 02/01/17 11:00 02/01/17 14:59 02/01/17 10:33 Metronidazole 100 ml @ 100 mls/hr Q8HR IVPB 01/30/17 14:00 02/04/17 14:59 02/01/17 06:27 Pantoprazole (Protonix) 40 mg ACBREAKFAST ORAL 01/30/17 11:30 03/01/17 11:29 02/01/17 06:27 Allergies: Coded Allergies: PENICILLINS (Unverified Allergy, Unknown, 01/28/17) ROS Limited/Unobtainable: No Constitutional: Reports: no symptoms HEENT: Reports: no symptoms Cardiovascular: Reports: no symptoms Respiratory: Reports: no symptoms Gastrointestinal/Abdominal: Reports: no symptoms Genitourinary: Reports: no symptoms Subjective 31 YO M admitted with altered mental status and rhabdomyolysis. Now elevated liver function tests and HIV preliminary positive. Continues lethargic; however more arousable today.. Cover for Int Med-Dr Colorado. Med/surg Objective Last Vital Signs Date Time Temp Pulse Resp B/P (MAP) Pulse Ox O2 Delivery O2 Flow Rate FiO2 02/01/17 10:04 98.1 74 18 139/94 97 Room Air Laboratory Tests Test 02/01/17 05:10 White Blood Count 6.5 K/UL (4.8-10.8) Red Blood Count 4.14 M/UL (4.70-6.10) L Hemoglobin 13.3 G/DL (14.2-18.0) L Hematocrit 37.7 % (42.0-52.0) L Mean Corpuscular Volume 91 FL (80-99) Mean Corpuscular Hemoglobin 32.2 PG (27.0-31.0) H Mean Corpuscular Hemoglobin Concent 35.4 G/DL (32.0-36.0) Red Cell Distribution Width 11.2 % (11.6-14.8) L Platelet Count 159 K/UL (150-450) Mean Platelet Volume 5.8 FL (6.5-10.1) L Neutrophils (%) (Auto) 71.3 % (45.0-75.0) Lymphocytes (%) (Auto) 15.9 % (20.0-45.0) L Monocytes (%) (Auto) 6.9 % (1.0-10.0) Eosinophils (%) (Auto) 4.7 % (0.0-3.0) H Basophils (%) (Auto) 1.2 % (0.0-2.0) Sodium Level 139 MMOL/L (136-145) Potassium Level 3.6 MMOL/L (3.5-5.1) Chloride Level 106 MMOL/L (98-107) Carbon Dioxide Level 25 MMOL/L (21-32) Anion Gap 8 mmol/L (5-15) Blood Urea Nitrogen 6 mg/dL (7-18) L Creatinine 0.9 MG/DL (0.55-1.30) Estimat Glomerular Filtration Rate > 60 mL/min (>60) Glucose Level 92 MG/DL (74-106) Calcium Level 8.2 MG/DL (8.5-10.1) L Phosphorus Level 3.7 MG/DL (2.5-4.9) Magnesium Level 1.5 MG/DL (1.8-2.4) L Total Bilirubin 0.4 MG/DL (0.2-1.0) Aspartate Amino Transf (AST/SGOT) 63 U/L (15-37) H Alanine Aminotransferase (ALT/SGPT) 135 U/L (12-78) H Alkaline Phosphatase 80 U/L (46-116) Total Creatine Kinase 173 U/L (26-308) C-Reactive Protein, Quantitative 3.7 mg/dL (0.00-0.90) H Total Protein 7.0 G/DL (6.4-8.2) Albumin 2.6 G/DL (3.4-5.0) L Globulin 4.4 g/dL Albumin/Globulin Ratio 0.6 (1.0-2.7) L Objective General Appearance: lethargic EENT: Thrush; PERRL/EOMI, normal ENT inspection Neck: non-tender, normal alignment, supple Cardiovascular: normal peripheral pulses, normal rate, regular rhythm, no gallop/murmur, no JVD Respiratory/Chest: chest wall non-tender, lungs clear, normal breath sounds, no respiratory distress, no accessory muscle use Abdomen: normal bowel sounds, non tender, soft, no organomegaly, no mass, abnormal bowel sounds Extremities: normal range of motion 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 See ID note. (2) Altered mental status Assessment & Plan: See neurology note. (3) Colitis Assessment & Plan: Continue levaquin and flagyl. See GI note. 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 See GI note. (6) Acute encephalopathy (7) Rhabdomyolysis Assessment & Plan: CPK increasing. Cont IV fluid. (8) Renal failure Assessment & Plan: Secondary to dehydration and/or rhabdomyolysis. See nephrology note (9) Oral thrush Assessment & Plan: Continue nystatin S/S (10) Hepatitis C Assessment & Plan: See GI note. (11) Homelessness Status: progressing Assessment/Plan Soc work consult: Homeless MIKE OLMSTEAD Feb 01, 2017 11:52
[2017-02-01] MEDS ORDERED: Nystatin Susp 500,000 units/5ml ORAL SCH (13:00)
--- NOTE | 2017-02-01 13:36 | Infectious Diseases Prog Note ---
Assessment/Plan Assessment/Plan Abx: Levofloxacin 01/28- Metronidazole 01/28- Assesment: AMS- due methamphetamine over dose- resolving Head CT: : Inflammatory change in the right maxillary sinus. Otherwise negative CT scan of the head without contrast material. Leukocytosis- likely reactive, possible sinusitis contributing. r/o aspiration pneumonia/pnuemonitis , resolved -CXR Cardiomegaly. No acute process -BCx NTD Low grade fever , resolved HIV ag/ab -preliminary positive, await confirmation and VL -Neg : RPR -CD4 419 (34.6%) Oral candidiasis Possible R maxillary sinusitis Transaminitis (AST/ALT ~500s), resolving Hep C Ab+ve; VL pending Abd/p CT : Lack of any contrast material considerably limits evaluation in this patient. Possible thickening of the colonic wall versus underdistention in the region of the sigmoid colon. Inflammatory disease is not excluded.Increased density in pericolonic fat in the right side of the abdomen. This could represent inflammatory change but this is not certain. Previous cholecystectomy. Splenomegaly.Basilar atelectasis. -neg: acute Hep A or Hep B Rhabdomyloysis- 2ry to above -CPK ~1900s,resolved NEL,2ry to above- resolved Plan: -Continue Levaquin and Flagyl # 5/7 for possible sinusitis and possible colitis based on CT findings;switch Flagyl to PO -On PO clotrimaxole torch for oral candidasis -f/u HIV ab confirmation, HIV VL, , GC/CL, Hep C VL; and obtain Hep A IgG, Hep Bsab, Hep Bc IgG, QTB, HLA B 57 -if not immune for Hep A and Hep B will need immunization. -f/u cx -Monitor CBC/BMP, temperatures Subjective Allergies: Coded Allergies: PENICILLINS (Unverified Allergy, Unknown, 01/28/17) Subjective on the floors afebrile LFTs normalizing Bcx NTD Objective Vital Signs Last 24 Hour Vital Signs Date Time Temp Pulse Resp B/P (MAP) Pulse Ox O2 Delivery O2 Flow Rate FiO2 02/01/17 12:35 98 Room Air 02/01/17 12:26 98.1 83 18 134/95 98 02/01/17 10:04 98.1 74 18 139/94 97 Room Air 02/01/17 09:22 97 Room Air 02/01/17 08:00 98.1 74 18 139/94 Room Air 02/01/17 08:00 96.4 91 18 114/91 T-piece 02/01/17 04:00 98.9 59 18 144/65 100 Room Air 02/01/17 00:00 98.0 80 18 139/92 97 Room Air 01/31/17 20:00 98.7 85 18 141/95 98 Room Air 01/31/17 15:45 98.2 81 20 140/96 99 Room Air Height (Feet): 6 Height (Inches): 6.00 Weight (Pounds): 177 Objective GENERAL: The patient is well developed, disheveled, filthy, white male, in no apparent distress. The patient is somnolence but easily arousable HEENT: Eyes, pupils are equal and responsive to light and accommodation.Extraocular movements are intact. NECK: Supple without lymphadenopathy. CHEST: Lungs are clear to auscultation bilaterally without wheezes or rales. CARDIOVASCULAR: Tachycardic, regular rhythm with S1 and S2 normal without murmurs, rubs, or gallops. ABDOMEN: Soft, nontender, nondistended. Positive bowel sounds. Noevidence of hepatosplenomegaly. EXTREMITIES: Negative for clubbing, cyanosis, or edema. IV marking L antecubital fossa RECTAL/GENITAL: Not performed. NEUROLOGIC: No focal deficits, slow to respond Laboratory Tests Test 02/01/17 05:10 White Blood Count 6.5 K/UL (4.8-10.8) Red Blood Count 4.14 M/UL (4.70-6.10) L Hemoglobin 13.3 G/DL (14.2-18.0) L Hematocrit 37.7 % (42.0-52.0) L Mean Corpuscular Volume 91 FL (80-99) Mean Corpuscular Hemoglobin 32.2 PG (27.0-31.0) H Mean Corpuscular Hemoglobin Concent 35.4 G/DL (32.0-36.0) Red Cell Distribution Width 11.2 % (11.6-14.8) L Platelet Count 159 K/UL (150-450) Mean Platelet Volume 5.8 FL (6.5-10.1) L Neutrophils (%) (Auto) 71.3 % (45.0-75.0) Lymphocytes (%) (Auto) 15.9 % (20.0-45.0) L Monocytes (%) (Auto) 6.9 % (1.0-10.0) Eosinophils (%) (Auto) 4.7 % (0.0-3.0) H Basophils (%) (Auto) 1.2 % (0.0-2.0) Sodium Level 139 MMOL/L (136-145) Potassium Level 3.6 MMOL/L (3.5-5.1) Chloride Level 106 MMOL/L (98-107) Carbon Dioxide Level 25 MMOL/L (21-32) Anion Gap 8 mmol/L (5-15) Blood Urea Nitrogen 6 mg/dL (7-18) L Creatinine 0.9 MG/DL (0.55-1.30) Estimat Glomerular Filtration Rate > 60 mL/min (>60) Glucose Level 92 MG/DL (74-106) Calcium Level 8.2 MG/DL (8.5-10.1) L Phosphorus Level 3.7 MG/DL (2.5-4.9) Magnesium Level 1.5 MG/DL (1.8-2.4) L Total Bilirubin 0.4 MG/DL (0.2-1.0) Aspartate Amino Transf (AST/SGOT) 63 U/L (15-37) H Alanine Aminotransferase (ALT/SGPT) 135 U/L (12-78) H Alkaline Phosphatase 80 U/L (46-116) Total Creatine Kinase 173 U/L (26-308) C-Reactive Protein, Quantitative 3.7 mg/dL (0.00-0.90) H Total Protein 7.0 G/DL (6.4-8.2) Albumin 2.6 G/DL (3.4-5.0) L Globulin 4.4 g/dL Albumin/Globulin Ratio 0.6 (1.0-2.7) L Current Medications Medications (Trade) Dose Ordered Sig/Purvi Route PRN Reason Start Time Stop Time Status Last Admin Dose Admin Clotrimazole (Mycelex Rylan) 10 mg FIVE TIMES A DAY AYAN 01/31/17 13:00 02/07/17 12:59 02/01/17 09:26 Dextrose (Dextrose 50%) STAT PRN IV Hypoglycemia 01/30/17 11:30 02/27/17 11:29 Levofloxacin (Levaquin) 500 mg DAILY ORAL 02/02/17 09:00 02/09/17 08:59 Magnesium Sulfate 100 ml @ 100 mls/hr Q1H IVPB 02/01/17 11:00 02/01/17 14:59 02/01/17 12:06 Metronidazole 100 ml @ 100 mls/hr Q8HR IVPB 01/30/17 14:00 02/04/17 14:59 02/01/17 06:27 Nystatin (Nystatin) 5 ml QID ORAL 02/01/17 13:00 02/08/17 12:59 Pantoprazole (Protonix) 40 mg ACBREAKFAST ORAL 01/30/17 11:30 03/01/17 11:29 02/01/17 06:27 Valacyclovir HCl (Valtrex) 2,000 mg EVERY 12 HOURS ORAL 02/01/17 12:15 03/03/17 12:14 Eli Piper M.D. Feb 01, 2017 13:36
--- NOTE | 2017-02-01 13:54 | Pulmonology Progress Note ---
Assessment/Plan Problems: (1) Acute encephalopathy (2) Renal failure (3) Rhabdomyolysis (4) Elevated LFTs (5) HIV (human immunodeficiency virus infection) (6) Hepatitis C (7) Substance abuse Assessment/Plan no new complains CT4 noted, >400 improving check electrolytes pt/ot dc planning Subjective ROS Limited/Unobtainable: No Constitutional: Reports: no symptoms HEENT: Repors: no symptoms Respiratory: Reports: no symptoms Allergies: Coded Allergies: PENICILLINS (Unverified Allergy, Unknown, 01/28/17) Objective Last 24 Hour Vital Signs Date Time Temp Pulse Resp B/P (MAP) Pulse Ox O2 Delivery O2 Flow Rate FiO2 02/01/17 12:35 98 Room Air 02/01/17 12:26 98.1 83 18 134/95 98 02/01/17 10:04 98.1 74 18 139/94 97 Room Air 02/01/17 09:22 97 Room Air 02/01/17 08:00 98.1 74 18 139/94 Room Air 02/01/17 08:00 96.4 91 18 114/91 T-piece 02/01/17 04:00 98.9 59 18 144/65 100 Room Air 02/01/17 00:00 98.0 80 18 139/92 97 Room Air 01/31/17 20:00 98.7 85 18 141/95 98 Room Air 01/31/17 15:45 98.2 81 20 140/96 99 Room Air General Appearance: WD/WN HEENT: normocephalic, atraumatic Respiratory/Chest: chest wall non-tender, lungs clear, chest wall tender Cardiovascular: normal peripheral pulses, normal rate Abdomen: normal bowel sounds, soft, non tender Genitourinary: normal external genitalia Extremities: no clubbing Skin: no lesions Laboratory Tests 02/01/17 05:10: White Blood Count 6.5, Red Blood Count 4.14L, Hemoglobin 13.3L, Hematocrit 37.7L , Mean Corpuscular Volume 91, Mean Corpuscular Hemoglobin 32.2H, Mean Corpuscular Hemoglobin Concent 35.4, Red Cell Distribution Width 11.2L, Platelet Count 159, Mean Platelet Volume 5.8L, Neutrophils (%) (Auto) 71.3, Lymphocytes (%) (Auto) 15.9L, Monocytes (%) (Auto) 6.9, Eosinophils (%) (Auto) 4.7H, Basophils (%) (Auto) 1.2, Sodium Level 139, Potassium Level 3.6, Chloride Level 106, Carbon Dioxide Level 25, Anion Gap 8, Blood Urea Nitrogen 6L, Creatinine 0.9, Estimat Glomerular Filtration Rate > 60, Glucose Level 92, Calcium Level 8.2L, Phosphorus Level 3.7, Magnesium Level 1.5L, Total Bilirubin 0.4, Aspartate Amino Transf (AST/SGOT) 63H, Alanine Aminotransferase (ALT/SGPT) 135H, Alkaline Phosphatase 80, Total Creatine Kinase 173, C-Reactive Protein, Quantitative 3.7H, Total Protein 7.0, Albumin 2.6L, Globulin 4.4, Albumin/ Globulin Ratio 0.6L Current Medications Medications (Trade) Dose Ordered Sig/Purvi Route PRN Reason Start Time Stop Time Status Last Admin Dose Admin Clotrimazole (Mycelex Rylan) 10 mg FIVE TIMES A DAY AYAN 01/31/17 13:00 02/07/17 12:59 02/01/17 09:26 Dextrose (Dextrose 50%) STAT PRN IV Hypoglycemia 01/30/17 11:30 02/27/17 11:29 Levofloxacin (Levaquin) 500 mg DAILY ORAL 02/02/17 09:00 02/09/17 08:59 Magnesium Sulfate 100 ml @ 100 mls/hr Q1H IVPB 02/01/17 11:00 02/01/17 14:59 02/01/17 12:06 Metronidazole (Flagyl) 500 mg Q8HR ORAL 02/01/17 14:00 02/08/17 13:59 UNV Nystatin (Nystatin) 5 ml QID ORAL 02/01/17 13:00 02/08/17 12:59 Pantoprazole (Protonix) 40 mg ACBREAKFAST ORAL 01/30/17 11:30 03/01/17 11:29 02/01/17 06:27 Valacyclovir HCl (Valtrex) 2,000 mg EVERY 12 HOURS ORAL 02/01/17 12:15 03/03/17 12:14 UNV NAYELY MCMULLEN Feb 01, 2017 13:54
[2017-02-01] MEDS ORDERED: D5 1/2NS 1000ml IV ONE (14:47)
[2017-02-01] MEDS: metroNIDAZOLE 500mg tab ORAL SCH ×2 (16:23→21:49)
[2017-02-01] MEDS: valACYclovir HCL 500mg tab ORAL SCH (16:24)
[2017-02-01] MEDS: Nystatin Susp 500,000 units/5ml ORAL SCH (21:49)
--- NOTE | 2017-02-01 23:44 | Consultation ---
History of Present Illness General Chief Complaint: Substance Abuse Present Illness HPI 31-year-old white male, who presents with chief complaint of altered mental status. the pt was lucid during the eval and stated that he was not suicide and this was an accidental od. the pt is homeless and is not motivated to get treatment for addiction Allergies: Coded Allergies: PENICILLINS (Unverified Allergy, Unknown, 01/28/17) Medication History Scheduled No Known Medications* (NKM - No Known Medications*), 0 ., (Reported) Miscellaneous Medications Unable to Obtain Medications (Unable To Obtain Meds), (Reported) Patient History History Provided By: Patient Healthcare decision maker Resuscitation status Full Code Advanced Directive on File Past Medical/Surgical History Past Medical/Surgical History: (1) Renal failure (2) Rhabdomyolysis (3) Acute encephalopathy (4) Elevated LFTs (5) Acute kidney injury (6) r/o HIV (7) 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 (8) Colitis (9) Altered mental status (10) HIV (human immunodeficiency virus infection) (11) Hepatitis C (12) Substance abuse (13) Oral thrush Review of Systems Psychiatric: Reports: prior hx, anxiety, depressed feelings, emotional problems Physical Exam Neurologic: alert, oriented x 3, responsive, depressed affect Last 24 Hour Vital Signs Date Time Temp Pulse Resp B/P (MAP) Pulse Ox O2 Delivery O2 Flow Rate FiO2 02/01/17 20:00 98.2 72 20 139/78 97 Room Air 02/01/17 16:32 98 Room Air 02/01/17 16:03 98.2 68 18 134/82 98 02/01/17 12:35 98 Room Air 02/01/17 12:26 98.1 83 18 134/95 98 02/01/17 10:04 98.1 74 18 139/94 97 Room Air 02/01/17 09:22 97 Room Air 02/01/17 08:00 98.1 74 18 139/94 Room Air 02/01/17 08:00 96.4 91 18 114/91 T-piece 02/01/17 04:00 98.9 59 18 144/65 100 Room Air 02/01/17 00:00 98.0 80 18 139/92 97 Room Air Intake and Output 02/01/17 02/02/17 19:00 07:00 Intake Total 1220 ml Output Total 1200 ml Balance 20 ml Intake Oral 720 ml IV Total 500 ml Output Urine Total 1200 ml Laboratory Tests Test 02/01/17 05:10 White Blood Count 6.5 K/UL (4.8-10.8) Red Blood Count 4.14 M/UL (4.70-6.10) L Hemoglobin 13.3 G/DL (14.2-18.0) L Hematocrit 37.7 % (42.0-52.0) L Mean Corpuscular Volume 91 FL (80-99) Mean Corpuscular Hemoglobin 32.2 PG (27.0-31.0) H Mean Corpuscular Hemoglobin Concent 35.4 G/DL (32.0-36.0) Red Cell Distribution Width 11.2 % (11.6-14.8) L Platelet Count 159 K/UL (150-450) Mean Platelet Volume 5.8 FL (6.5-10.1) L Neutrophils (%) (Auto) 71.3 % (45.0-75.0) Lymphocytes (%) (Auto) 15.9 % (20.0-45.0) L Monocytes (%) (Auto) 6.9 % (1.0-10.0) Eosinophils (%) (Auto) 4.7 % (0.0-3.0) H Basophils (%) (Auto) 1.2 % (0.0-2.0) Sodium Level 139 MMOL/L (136-145) Potassium Level 3.6 MMOL/L (3.5-5.1) Chloride Level 106 MMOL/L (98-107) Carbon Dioxide Level 25 MMOL/L (21-32) Anion Gap 8 mmol/L (5-15) Blood Urea Nitrogen 6 mg/dL (7-18) L Creatinine 0.9 MG/DL (0.55-1.30) Estimat Glomerular Filtration Rate > 60 mL/min (>60) Glucose Level 92 MG/DL (74-106) Calcium Level 8.2 MG/DL (8.5-10.1) L Phosphorus Level 3.7 MG/DL (2.5-4.9) Magnesium Level 1.5 MG/DL (1.8-2.4) L Total Bilirubin 0.4 MG/DL (0.2-1.0) Aspartate Amino Transf (AST/SGOT) 63 U/L (15-37) H Alanine Aminotransferase (ALT/SGPT) 135 U/L (12-78) H Alkaline Phosphatase 80 U/L (46-116) Total Creatine Kinase 173 U/L (26-308) C-Reactive Protein, Quantitative 3.7 mg/dL (0.00-0.90) H Total Protein 7.0 G/DL (6.4-8.2) Albumin 2.6 G/DL (3.4-5.0) L Globulin 4.4 g/dL Albumin/Globulin Ratio 0.6 (1.0-2.7) L Height (Feet): 6 Height (Inches): 6.00 Weight (Pounds): 177 Medications Current Medications Medications (Trade) Dose Ordered Sig/Purvi Route PRN Reason Start Time Stop Time Status Last Admin Dose Admin Clotrimazole (Mycelex Rylan) 10 mg FIVE TIMES A DAY AYAN 01/31/17 13:00 02/07/17 12:59 02/01/17 18:35 Dextrose (Dextrose 50%) STAT PRN IV Hypoglycemia 01/30/17 11:30 02/27/17 11:29 Levofloxacin (Levaquin) 500 mg DAILY ORAL 02/02/17 09:00 02/09/17 08:59 Metronidazole (Flagyl) 500 mg Q8HR ORAL 02/01/17 14:00 02/08/17 13:59 02/01/17 21:49 Nystatin (Nystatin) 5 ml QID ORAL 02/01/17 21:00 02/08/17 20:59 02/01/17 21:49 Pantoprazole (Protonix) 40 mg ACBREAKFAST ORAL 01/30/17 11:30 03/01/17 11:29 02/01/17 06:27 Valacyclovir HCl (Valtrex) 2,000 mg Q12HR@0630,1830 ORAL 02/01/17 16:00 03/03/17 15:59 02/01/17 16:24 Assessment/Plan Status: stable Assessment/Plan the pt maybe dced after medical clearance the pt is not a dts/dto Grover Cabrera M.D. Feb 01, 2017 23:44
[2017-02-02] VITALS: BP 123/79
[2017-02-02] MEDS ORDERED: valACYclovir HCL 500mg tab ORAL SCH
[2017-02-02] MEDS ORDERED: metroNIDAZOLE 500mg tab ORAL SCH
[2017-02-02 04:04] VITALS: BP 130/70
[2017-02-02] MEDS: metroNIDAZOLE 500mg tab ORAL SCH ×2 (06:04→14:20)
[2017-02-02] MEDS: valACYclovir HCL 500mg tab ORAL SCH (06:06)
[2017-02-02 06:48] LABS: BASOPHILS % (AUTO) 1.5 % (0.0-2.0); EOSINOPHILS % (AUTO) 6.5 % (0.0-3.0); LYMPHOCYTES % (AUTO) 20.1 % (20.0-45.0); MEAN CORPUSCULAR HEMOGLOBIN 31.4 PG (27.0-31.0); MEAN CORPUSCULAR HGB CONC 34.7 G/DL (32.0-36.0); MEAN CORPUSCULAR VOLUME 90 FL (80-99); MONOCYTES % (AUTO) 11.5 % (1.0-10.0); NEUTROPHILS % (AUTO) 60.4 % (45.0-75.0); PLATELET COUNT 195 K/UL (150-450); RED BLOOD COUNT 4.35 M/UL (4.70-6.10); RED CELL DISTRIBUTION WIDTH 11.5 % (11.6-14.8); WHITE BLOOD COUNT 5.8 K/UL (4.8-10.8)
[2017-02-02 07:21] LABS: ANION GAP 8 mmol/L (5-15); CALCIUM 8.6 MG/DL (8.5-10.1); CARBON DIOXIDE 26 MMOL/L (21-32); CHLORIDE 105 MMOL/L (98-107); GLOMERULAR FILTRATION RATE > 60 mL/min (>60); MAGNESIUM 1.6 MG/DL (1.8-2.4); POTASSIUM 3.9 MMOL/L (3.5-5.1); SODIUM 139 MMOL/L (136-145)
[2017-02-02 08:00] VITALS: BP 130/75
[2017-02-02] MEDS ORDERED: Levofloxacin 500mg tab ORAL SCH ×2 (09:00)
[2017-02-02] MEDS: Nystatin Susp 500,000 units/5ml ORAL SCH ×2 (09:19→14:03)
--- NOTE | 2017-02-02 11:42 | Infectious Diseases Prog Note ---
Assessment/Plan Assessment/Plan Assesment: AMS- due methamphetamine over dose- resolved Head CT: : Inflammatory change in the right maxillary sinus. Otherwise negative CT scan of the head without contrast material. Leukocytosis- likely reactive, possible sinusitis contributing. r/o aspiration pneumonia/pnuemonitis , resolved -CXR Cardiomegaly. No acute process -BCx NTD Low grade fever , resolved HIV ag/ab -preliminary positive, await confirmation and VL -Neg : RPR -CD4 419 (34.6%) -GC/CL Oral candidiasis Mucocutaneous herpes simplex Possible R maxillary sinusitis Transaminitis (AST/ALT ~500s), resolving Hep C Ab+ve; VL pending Abd/p CT : Lack of any contrast material considerably limits evaluation in this patient. Possible thickening of the colonic wall versus underdistention in the region of the sigmoid colon. Inflammatory disease is not excluded.Increased density in pericolonic fat in the right side of the abdomen. This could represent inflammatory change but this is not certain. Previous cholecystectomy. Splenomegaly.Basilar atelectasis. -neg: acute Hep A or Hep B Rhabdomyloysis- 2ry to above -CPK ~1900s,resolved NEL,2ry to above- resolved Psychiatric illness Homelessness IVDA Plan: -Continue Levaquin and Flagyl # 6/7 for possible sinusitis and possible colitis based on CT findings -On PO clotrimaxole torch for oral candidasis #3/7 -Continue PO Valacyclovir #2/7 for oral herpes but decrease dose to 1g bid -f/u HIV ab confirmation, HIV VL, , Hep C VL; Hep A IgG, Hep Bsab, Hep Bc IgG , QTB, HLA B 57 -if not immune for Hep A and Hep B will need immunization. -Will give meningococcal and Prevnar 13 vaccine prior to discharge -f/u cx -Monitor CBC/BMP, temperatures -Provide patient with numbers of HIV clinic to follow up. Discussed with RN and pharmacy staff. Subjective Allergies: Coded Allergies: PENICILLINS (Unverified Allergy, Unknown, 01/28/17) Subjective afebrile awaitin HIV confirmation BCx NTD Objective Vital Signs Last 24 Hour Vital Signs Date Time Temp Pulse Resp B/P (MAP) Pulse Ox O2 Delivery O2 Flow Rate FiO2 02/02/17 08:00 97.5 96 20 130/75 97 02/02/17 04:15 Room Air 11/28/17 04:04 97.9 65 18 130/70 97 02/02/17 00:00 Room Air 02/02/17 00:00 97.0 70 20 123/79 97 Room Air 02/01/17 20:00 98.2 72 20 139/78 97 Room Air 02/01/17 20:00 Room Air 02/01/17 16:32 98 Room Air 02/01/17 16:03 98.2 68 18 134/82 98 02/01/17 12:35 98 Room Air 02/01/17 12:26 98.1 83 18 134/95 98 Height (Feet): 6 Height (Inches): 6.00 Weight (Pounds): 180 Objective GENERAL: The patient is well developed, disheveled, filthy, white male, in no apparent distress. HEENT: Eyes, pupils are equal and responsive to light and accommodation.Extraocular movements are intact. ulcers in lips, perioral area, oral thrush NECK: Supple without lymphadenopathy. CHEST: Lungs are clear to auscultation bilaterally without wheezes or rales. CARDIOVASCULAR: Tachycardic, regular rhythm with S1 and S2 normal without murmurs, rubs, or gallops. ABDOMEN: Soft, nontender, nondistended. Positive bowel sounds. Noevidence of hepatosplenomegaly. EXTREMITIES: Negative for clubbing, cyanosis, or edema. IV marking L antecubital fossa NEUROLOGIC: No focal deficits Laboratory Tests Test 02/02/17 05:30 White Blood Count 5.8 K/UL (4.8-10.8) Red Blood Count 4.35 M/UL (4.70-6.10) L Hemoglobin 13.6 G/DL (14.2-18.0) L Hematocrit 39.3 % (42.0-52.0) L Mean Corpuscular Volume 90 FL (80-99) Mean Corpuscular Hemoglobin 31.4 PG (27.0-31.0) H Mean Corpuscular Hemoglobin Concent 34.7 G/DL (32.0-36.0) Red Cell Distribution Width 11.5 % (11.6-14.8) L Platelet Count 195 K/UL (150-450) Mean Platelet Volume 6.0 FL (6.5-10.1) L Neutrophils (%) (Auto) 60.4 % (45.0-75.0) Lymphocytes (%) (Auto) 20.1 % (20.0-45.0) Monocytes (%) (Auto) 11.5 % (1.0-10.0) H Eosinophils (%) (Auto) 6.5 % (0.0-3.0) H Basophils (%) (Auto) 1.5 % (0.0-2.0) Sodium Level 139 MMOL/L (136-145) Potassium Level 3.9 MMOL/L (3.5-5.1) Chloride Level 105 MMOL/L (98-107) Carbon Dioxide Level 26 MMOL/L (21-32) Anion Gap 8 mmol/L (5-15) Blood Urea Nitrogen 10 mg/dL (7-18) Creatinine 1.0 MG/DL (0.55-1.30) Estimat Glomerular Filtration Rate > 60 mL/min (>60) Glucose Level 80 MG/DL (74-106) Calcium Level 8.6 MG/DL (8.5-10.1) Magnesium Level 1.6 MG/DL (1.8-2.4) L Hepatitis A Antibody Total Pending Hepatitis B Surface Antibody Pending Hepatitis B Core Total Antibody Pending Current Medications Medications (Trade) Dose Ordered Sig/Purvi Route PRN Reason Start Time Stop Time Status Last Admin Dose Admin Clotrimazole (Mycelex Rylan) 10 mg FIVE TIMES A DAY AYAN 01/31/17 13:00 02/07/17 12:59 02/02/17 07:29 Dextrose (Dextrose 50%) STAT PRN IV Hypoglycemia 01/30/17 11:30 02/27/17 11:29 Levofloxacin (Levaquin) 500 mg DAILY ORAL 02/02/17 09:00 02/09/17 08:59 02/02/17 09:19 Magnesium Sulfate 100 ml @ 100 mls/hr Q1H IVPB 02/02/17 11:00 02/02/17 14:59 02/02/17 10:33 Metronidazole (Flagyl) 500 mg Q8HR ORAL 02/01/17 14:00 02/08/17 13:59 02/02/17 06:04 Nystatin (Nystatin) 5 ml QID ORAL 02/01/17 21:00 02/08/17 20:59 02/02/17 09:19 Pantoprazole (Protonix) 40 mg ACBREAKFAST ORAL 01/30/17 11:30 03/01/17 11:29 02/02/17 06:05 Valacyclovir HCl (Valtrex) 2,000 mg Q12HR@0630,1830 ORAL 02/01/17 16:00 03/03/17 15:59 02/02/17 06:06 Eli Cooper M.D. Feb 02, 2017 11:42
[2017-02-02 12:00] VITALS: BP 127/72
[2017-02-02] MEDS ORDERED: Pneumococcal Vaccine 25mcg/0.5ml IM ONE (13:00)
[2017-02-02] MEDS ORDERED: Meningococcal Polysacc Vaccine Inj IM ONE (13:00)
[2017-02-02] MEDS ORDERED: HEPATITIS A VACCINE IM ONE (13:00)
--- NOTE | 2017-02-02 13:42 | GI Progress Note ---
Assessment/Plan Problems: (1) Oral thrush ICD Codes: B37.0 - Candidal stomatitis SNOMED: 33759684 (2) Substance abuse ICD Codes: F19.10 - Other psychoactive substance abuse, uncomplicated SNOMED: 64568091 (3) Hepatitis C ICD Codes: B19.20 - Unspecified viral hepatitis C without hepatic coma SNOMED: 23057492 (4) 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 (5) Elevated LFTs ICD Codes: R79.89 - Other specified abnormal findings of blood chemistry SNOMED: 312507110, 933949484 (6) Acute kidney injury ICD Codes: N17.9 - Acute kidney failure, unspecified SNOMED: 29945603 Status: stable, progressing Status Narrative Discussed with Dr. Plata. Assessment/Plan utox positive for amphetamines supportive care FLD, patient cannot chew at this time >> adv as tolerated cont clotrimazole + nystation PO hydration electrolyte replacement follow LFTs fu labs outpatient Hep C treatment dc planning Subjective Subjective mouth swollen, hard to swallow Objective Last 24 Hour Vital Signs Date Time Temp Pulse Resp B/P (MAP) Pulse Ox O2 Delivery O2 Flow Rate FiO2 02/02/17 12:00 97.5 70 20 127/72 97 02/02/17 08:00 97.5 96 20 130/75 97 02/02/17 04:15 Room Air 02/02/17 04:04 97.9 65 18 130/70 97 02/02/17 00:00 Room Air 02/02/17 00:00 97.0 70 20 123/79 97 Room Air 02/01/17 20:00 98.2 72 20 139/78 97 Room Air 02/01/17 20:00 Room Air 02/01/17 16:32 98 Room Air 02/01/17 16:03 98.2 68 18 134/82 98 Intake and Output 02/02/17 02/03/17 19:00 07:00 Output Total 1800 ml Balance -1800 ml Output Urine Total 1800 ml Laboratory Tests Test 02/02/17 05:30 White Blood Count 5.8 K/UL (4.8-10.8) Red Blood Count 4.35 M/UL (4.70-6.10) L Hemoglobin 13.6 G/DL (14.2-18.0) L Hematocrit 39.3 % (42.0-52.0) L Mean Corpuscular Volume 90 FL (80-99) Mean Corpuscular Hemoglobin 31.4 PG (27.0-31.0) H Mean Corpuscular Hemoglobin Concent 34.7 G/DL (32.0-36.0) Red Cell Distribution Width 11.5 % (11.6-14.8) L Platelet Count 195 K/UL (150-450) Mean Platelet Volume 6.0 FL (6.5-10.1) L Neutrophils (%) (Auto) 60.4 % (45.0-75.0) Lymphocytes (%) (Auto) 20.1 % (20.0-45.0) Monocytes (%) (Auto) 11.5 % (1.0-10.0) H Eosinophils (%) (Auto) 6.5 % (0.0-3.0) H Basophils (%) (Auto) 1.5 % (0.0-2.0) Sodium Level 139 MMOL/L (136-145) Potassium Level 3.9 MMOL/L (3.5-5.1) Chloride Level 105 MMOL/L (98-107) Carbon Dioxide Level 26 MMOL/L (21-32) Anion Gap 8 mmol/L (5-15) Blood Urea Nitrogen 10 mg/dL (7-18) Creatinine 1.0 MG/DL (0.55-1.30) Estimat Glomerular Filtration Rate > 60 mL/min (>60) Glucose Level 80 MG/DL (74-106) Calcium Level 8.6 MG/DL (8.5-10.1) Magnesium Level 1.6 MG/DL (1.8-2.4) L Hepatitis A Antibody Total Pending Hepatitis B Surface Antibody Pending Hepatitis B Core Total Antibody Pending Height (Feet): 6 Height (Inches): 6.00 Weight (Pounds): 180 General Appearance: WD/WN, no apparent distress, alert Cardiovascular: normal rate Respiratory/Chest: normal breath sounds, no respiratory distress Abdominal Exam: normal bowel sounds, non tender, soft Extremities: normal range of motion, non-tender Mary Jimenez N.PAlan Feb 02, 2017 13:42
[2017-02-02 14:21] LABS: HIV-1 ANTIBODY Positive (Negative); HIV-2 ANTIBODY Negative (Negative)
[2017-02-02 15:10] LABS: HIV RNA PCR QUANT 4.703 (.); HIV RNA PCR QUANT 50460 copies/mL (.)
--- NOTE | 2017-02-02 15:11 | Nephrology Progress Note ---
Assessment/Plan Problem List: (1) Renal failure (2) Rhabdomyolysis (3) Acute encephalopathy (4) HIV (human immunodeficiency virus infection) (5) Substance abuse Assessment 1. Altered mental status. multifactorial improved 2. Dehydration. resolved 3. Rhabdomyolysis. resolved 4. Renal failure. Cr lowering, resolved 5. Elevated liver function test. likely due to Rhabdo improved 6. Methamphetamine abuse. 7. HIV status Plan DC IV fluid- Levaquin to PO Mycelex for thrush monitor renal parameters and Avoid nephrotoxics per orders ? DC planning?? Subjective ROS Limited/Unobtainable: No Constitutional: Reports: malaise, weakness Objective Objective Last 24 Hour Vital Signs Date Time Temp Pulse Resp B/P (MAP) Pulse Ox O2 Delivery O2 Flow Rate FiO2 02/02/17 12:00 97.5 70 20 127/72 97 02/02/17 08:00 97.5 96 20 130/75 97 02/02/17 04:15 Room Air 02/02/17 04:04 97.9 65 18 130/70 97 02/02/17 00:00 Room Air 02/02/17 00:00 97.0 70 20 123/79 97 Room Air 02/01/17 20:00 98.2 72 20 139/78 97 Room Air 02/01/17 20:00 Room Air 02/01/17 16:32 98 Room Air 02/01/17 16:03 98.2 68 18 134/82 98 Intake and Output 02/02/17 02/03/17 19:00 07:00 Output Total 1800 ml Balance -1800 ml Output Urine Total 1800 ml Laboratory Tests 02/02/17 05:30: White Blood Count 5.8, Red Blood Count 4.35L, Hemoglobin 13.6L, Hematocrit 39.3L , Mean Corpuscular Volume 90, Mean Corpuscular Hemoglobin 31.4H, Mean Corpuscular Hemoglobin Concent 34.7, Red Cell Distribution Width 11.5L, Platelet Count 195, Mean Platelet Volume 6.0L, Neutrophils (%) (Auto) 60.4, Lymphocytes (%) (Auto) 20.1, Monocytes (%) (Auto) 11.5H, Eosinophils (%) (Auto) 6.5H, Basophils (%) (Auto) 1.5, Sodium Level 139, Potassium Level 3.9, Chloride Level 105, Carbon Dioxide Level 26, Anion Gap 8, Blood Urea Nitrogen 10, Creatinine 1.0, Estimat Glomerular Filtration Rate > 60, Glucose Level 80, Calcium Level 8.6, Magnesium Level 1.6L, Hepatitis A Antibody Total [Pending], Hepatitis B Surface Antibody [Pending], Hepatitis B Core Total Antibody [Pending ] Height (Feet): 6 Height (Inches): 6.00 Weight (Pounds): 180 General Appearance: no apparent distress Objective no change JOSE EDWARDS Feb 02, 2017 15:11
[2017-02-02] MEDS ORDERED: METRONIDAZOLE500 MG ORAL (15:54)
[2017-02-02] MEDS ORDERED: LEVAQUIN500 MG ORAL (15:54)
[2017-02-02] MEDS ORDERED: VALACYCLOVIR500 MG ORAL ×2 (15:55→15:57)
[2017-02-02] MEDS ORDERED: MYCELEX TROCHE10 MG ORAL (15:57)
[2017-02-02 16:00] VITALS: BP 109/65
--- NOTE | 2017-02-02 17:25 | Internal Med Progress Note ---
Subjective Date of Service: Feb 02, 2017 Physician Name Mike Olmstead Attending Physician Samir [place] MD Current Medications Medications (Trade) Dose Ordered Sig/Purvi Route PRN Reason Start Time Stop Time Status Last Admin Dose Admin Clotrimazole (Mycelex Rylan) 10 mg FIVE TIMES A DAY AYAN 01/31/17 13:00 02/07/17 12:59 02/02/17 07:29 Clotrimazole (Mycelex Rylan) 10 mg FIVE TIMES A DAY AYAN 02/02/17 00:00 02/05/17 23:59 Dextrose (Dextrose 50%) STAT PRN IV Hypoglycemia 01/30/17 11:30 02/27/17 11:29 Levofloxacin (Levaquin) 500 mg DAILY ORAL 02/02/17 00:00 02/02/17 23:59 Levofloxacin (Levaquin) 500 mg DAILY ORAL 02/02/17 09:00 02/09/17 08:59 02/02/17 09:19 Metronidazole (Flagyl) 500 mg Q8HR ORAL 02/01/17 14:00 02/08/17 13:59 02/02/17 14:20 Metronidazole (Flagyl) 500 mg Q8HR ORAL 02/02/17 00:00 02/03/17 23:59 Nystatin (Nystatin) 5 ml QID ORAL 02/01/17 21:00 02/08/17 20:59 02/02/17 14:03 Pantoprazole (Protonix) 40 mg ACBREAKFAST ORAL 01/30/17 11:30 03/01/17 11:29 02/02/17 06:05 Valacyclovir HCl (Valtrex) 1,000 mg BID ORAL 02/02/17 00:00 02/04/17 23:59 Valacyclovir HCl (Valtrex) 2,000 mg Q12HR@0630,1830 ORAL 02/01/17 16:00 03/03/17 15:59 02/02/17 06:06 Allergies: Coded Allergies: PENICILLINS (Unverified Allergy, Unknown, 01/28/17) ROS Limited/Unobtainable: No Constitutional: Reports: no symptoms HEENT: Reports: no symptoms Cardiovascular: Reports: no symptoms Respiratory: Reports: no symptoms Gastrointestinal/Abdominal: Reports: no symptoms Genitourinary: Reports: no symptoms Neurologic/Psychiatric: Reports: no symptoms Subjective 31 YO M admitted with altered mental status and rhabdomyolysis. Now elevated liver function tests and HIV preliminary positive. Cover for Int Med-Dr [place]. Await discharge Objective Last Vital Signs Date Time Temp Pulse Resp B/P (MAP) Pulse Ox O2 Delivery O2 Flow Rate FiO2 02/02/17 16:00 97.3 80 20 109/65 96 Room Air Laboratory Tests Test 02/02/17 05:30 White Blood Count 5.8 K/UL (4.8-10.8) Red Blood Count 4.35 M/UL (4.70-6.10) L Hemoglobin 13.6 G/DL (14.2-18.0) L Hematocrit 39.3 % (42.0-52.0) L Mean Corpuscular Volume 90 FL (80-99) Mean Corpuscular Hemoglobin 31.4 PG (27.0-31.0) H Mean Corpuscular Hemoglobin Concent 34.7 G/DL (32.0-36.0) Red Cell Distribution Width 11.5 % (11.6-14.8) L Platelet Count 195 K/UL (150-450) Mean Platelet Volume 6.0 FL (6.5-10.1) L Neutrophils (%) (Auto) 60.4 % (45.0-75.0) Lymphocytes (%) (Auto) 20.1 % (20.0-45.0) Monocytes (%) (Auto) 11.5 % (1.0-10.0) H Eosinophils (%) (Auto) 6.5 % (0.0-3.0) H Basophils (%) (Auto) 1.5 % (0.0-2.0) Sodium Level 139 MMOL/L (136-145) Potassium Level 3.9 MMOL/L (3.5-5.1) Chloride Level 105 MMOL/L (98-107) Carbon Dioxide Level 26 MMOL/L (21-32) Anion Gap 8 mmol/L (5-15) Blood Urea Nitrogen 10 mg/dL (7-18) Creatinine 1.0 MG/DL (0.55-1.30) Estimat Glomerular Filtration Rate > 60 mL/min (>60) Glucose Level 80 MG/DL (74-106) Calcium Level 8.6 MG/DL (8.5-10.1) Magnesium Level 1.6 MG/DL (1.8-2.4) L Hepatitis A Antibody Total Pending Hepatitis B Surface Antibody Pending Hepatitis B Core Total Antibody Pending Intake and Output 02/02/17 02/03/17 19:00 07:00 Output Total 1800 ml Balance -1800 ml Output Urine Total 1800 ml Objective General Appearance: lethargic EENT: Thrush; PERRL/EOMI, normal ENT inspection Neck: non-tender, normal alignment, supple Cardiovascular: normal peripheral pulses, normal rate, regular rhythm, no gallop/murmur, no JVD Respiratory/Chest: chest wall non-tender, lungs clear, normal breath sounds, no respiratory distress, no accessory muscle use Abdomen: normal bowel sounds, non tender, soft, no organomegaly, no mass, abnormal bowel sounds Extremities: normal range of motion 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 See ID note. (2) Altered mental status Assessment & Plan: See neurology note. (3) Colitis Assessment & Plan: Continue levaquin and flagyl. See GI note. 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 See GI note. (6) Acute encephalopathy (7) Rhabdomyolysis Assessment & Plan: Improving. Cont IV fluid. (8) Renal failure Assessment & Plan: Secondary to dehydration and/or rhabdomyolysis. See nephrology note (9) Oral thrush Assessment & Plan: Continue nystatin S/S (10) Hepatitis C Assessment & Plan: See GI note. (11) Homelessness Assessment/Plan Soc work consult: Homeless. Patient to discharge to own plan. [facility] at [facility]-see soc work note. MIKE OLMSTEAD Feb 02, 2017 17:24
--- NOTE | 2017-02-02 18:47 | Pulmonology Progress Note ---
Assessment/Plan Problems: (1) Acute encephalopathy (2) Renal failure (3) Rhabdomyolysis (4) Elevated LFTs (5) HIV (human immunodeficiency virus infection) (6) Hepatitis C (7) Substance abuse Assessment/Plan no new complains CT4 noted, >400 improving check electrolytes pt/ot dc planning in process pt refused to go [facility] and will be going on the street. Subjective ROS Limited/Unobtainable: No Constitutional: Reports: no symptoms HEENT: Repors: no symptoms Respiratory: Reports: no symptoms Allergies: Coded Allergies: PENICILLINS (Unverified Allergy, Unknown, 01/28/17) Objective Last 24 Hour Vital Signs Date Time Temp Pulse Resp B/P (MAP) Pulse Ox O2 Delivery O2 Flow Rate FiO2 02/02/17 16:00 97.3 80 20 109/65 96 Room Air 02/02/17 12:00 97.5 70 20 127/72 97 02/02/17 08:00 97.5 96 20 130/75 97 02/02/17 04:15 Room Air 02/02/17 04:04 97.9 65 18 130/70 97 02/02/17 00:00 Room Air 02/02/17 00:00 97.0 70 20 123/79 97 Room Air 02/01/17 20:00 98.2 72 20 139/78 97 Room Air 02/01/17 20:00 Room Air Intake and Output 02/02/17 02/03/17 19:00 07:00 Intake Total 240 ml Output Total 2450 ml Balance -2210 ml Intake Oral 240 ml Output Urine Total 2450 ml General Appearance: WD/WN HEENT: normocephalic, atraumatic Respiratory/Chest: chest wall non-tender, normal breath sounds Cardiovascular: normal rate, no JVD Abdomen: no organomegaly Extremities: no cyanosis Neurologic/Psychiatric: 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 II-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 grossly normal, no motor/sensory deficits Laboratory Tests 02/02/17 05:30: White Blood Count 5.8, Red Blood Count 4.35L, Hemoglobin 13.6L, Hematocrit 39.3L , Mean Corpuscular Volume 90, Mean Corpuscular Hemoglobin 31.4H, Mean Corpuscular Hemoglobin Concent 34.7, Red Cell Distribution Width 11.5L, Platelet Count 195, Mean Platelet Volume 6.0L, Neutrophils (%) (Auto) 60.4, Lymphocytes (%) (Auto) 20.1, Monocytes (%) (Auto) 11.5H, Eosinophils (%) (Auto) 6.5H, Basophils (%) (Auto) 1.5, Sodium Level 139, Potassium Level 3.9, Chloride Level 105, Carbon Dioxide Level 26, Anion Gap 8, Blood Urea Nitrogen 10, Creatinine 1.0, Estimat Glomerular Filtration Rate > 60, Glucose Level 80, Calcium Level 8.6, Magnesium Level 1.6L, Hepatitis A Antibody Total [Pending], Hepatitis B Surface Antibody [Pending], Hepatitis B Core Total Antibody [Pending ] Current Medications Medications (Trade) Dose Ordered Sig/Purvi Route PRN Reason Start Time Stop Time Status Last Admin Dose Admin Clotrimazole (Mycelex Rylan) 10 mg FIVE TIMES A DAY AYAN 01/31/17 13:00 02/07/17 12:59 02/02/17 07:29 Clotrimazole (Mycelex Rylan) 10 mg FIVE TIMES A DAY AYAN 02/02/17 00:00 02/05/17 23:59 Dextrose (Dextrose 50%) STAT PRN IV Hypoglycemia 01/30/17 11:30 02/27/17 11:29 Levofloxacin (Levaquin) 500 mg DAILY ORAL 02/02/17 00:00 02/02/17 23:59 Levofloxacin (Levaquin) 500 mg DAILY ORAL 02/02/17 09:00 02/09/17 08:59 02/02/17 09:19 Metronidazole (Flagyl) 500 mg Q8HR ORAL 02/01/17 14:00 02/08/17 13:59 02/02/17 14:20 Metronidazole (Flagyl) 500 mg Q8HR ORAL 02/02/17 00:00 02/03/17 23:59 Nystatin (Nystatin) 5 ml QID ORAL 02/01/17 21:00 02/08/17 20:59 02/02/17 14:03 Pantoprazole (Protonix) 40 mg ACBREAKFAST ORAL 01/30/17 11:30 03/01/17 11:29 02/02/17 06:05 Valacyclovir HCl (Valtrex) 1,000 mg BID ORAL 02/02/17 00:00 02/04/17 23:59 Valacyclovir HCl (Valtrex) 2,000 mg Q12HR@0630,1830 ORAL 02/01/17 16:00 03/03/17 15:59 02/02/17 06:06 NAYELY MCMULLEN Feb 02, 2017 18:47
[2017-02-03 07:08] LABS: HEP B CORE AB TOTAL Negative (Negative); HEPATITIS A ANTIBODY TOTAL Positive (Negative)
[2017-02-03 10:27] LABS: VITAMIN D 25-OH TOTAL 25 ng/mL (.)
[2017-02-03 22:22] LABS: HEP C VIRUS RNA (LOG IU/ML) 4.701 (.); HEPATITIS C QUANT 50200 IU/mL (.)
--- NOTE | 2017-02-04 10:17 | Discharge Summary ---
Discharge Summary Hospital Course Date of Admission Jan 28, 2017 at 10:00 Date of Discharge Feb 02, 2017 at 17:30 Admitting Diagnosis Acute Kidney Injury DONTAE Stallings is a 31 year old male who was admitted on Jan 28, 2017 at 10:00 for Acute Kidney Injury Hospital Course [id number] Discharge Discharge Disposition Patient was discharged (homeless discharge) Discharge Diagnoses: Lida Cummins NP Feb 04, 2017 10:17
--- NOTE | 2017-02-04 22:00 | Discharge Summary 2 SIG ---
DATE OF ADMISSION: 01/28/2017 DATE OF DISCHARGE: 02/02/2017 ATTENDING PHYSICIAN: Samir [place] M.D. CONSULTANTS: 1. Yadira Son M.D. 2. Antonio Rothman M.D. 3. Stevenson Plata M.D. 4. Eli Cooper M.D. 5. Grover Cabrera M.D. 6. Boris Ortega M.D. BRIEF HOSPITAL COURSE: The patient is a 31-year-old male, who was brought in by EMS after altered mental status and the patient was agitated. According to emergency room notes, the patient was found in [place] and was fairly lethargic. He had prior history of substance abuse and on evaluation at ED, he was hypotensive, blood pressure was 92/54, and tachycardic 124 pulse rate, and temperature was 100 degrees. Creatinine was elevated to 2.0 and BUN 38. Liver function tests were elevated. Urine toxicology was positive for amphetamine. He admits to using heroin and amphetamine. He was lethargic on arrival to ED. He was given IV resuscitation. Head CT done showed inflammatory changes in the right maxillary sinus, otherwise negative. He was admitted to intensive care unit for acute encephalopathy, secondary to severe dehydration versus amphetamine abuse. He had rhabdomyolysis, total CK elevated to greater than 1000. CT scan of the abdomen showed thickening of the sigmoid colon consistent with colitis. He was initially placed on IV pressors at the intensive care unit. However, blood pressure improved following day. Intravenous pressor was discontinued. He continued to be confused and slightly lethargic. Neurological examination was done. He was assessed to have acute toxic encephalopathy due to heroin/methamphetamine abuse. He was given supportive care and thiamine was added 100 mg daily. He was given intravenous Levaquin and Flagyl for possible sinusitis. HIV screen was done. Preliminary was positive. Hepatitis panel was also checked and was positive for hepatitis C. Syphilis and gonorrhea were negative. Acute kidney injury and rhabdomyolysis resolved. He was transferred out to Medical/Surgical. He was noted to have oral candidiasis and mucocutaneous herpes simplex. He was given valacyclovir 1 g b.i.d. and p.o. clotrimazole zohaib for oral candidiasis. He underwent psychiatric evaluation. The patient is not suicidal and is not motivated to get treatment for addiction. He was assessed to be not a danger to self or to others. Social service was called in to aid in placement, however, he was not receptive to be placed in a fci. He was given prescriptions and medications were filled through [facility]. He was given bus tokens and signed homeless discharge. FINAL DIAGNOSES: 1. Acute toxic encephalopathy, secondary to methamphetamine and heroin abuse. 2. Acute rhabdomyolysis. 3. Acute kidney injury, secondary to dehydration and rhabdomyolysis. 4. Hepatitis C. 5. Homelessness. 6. Colitis. 7. Human immunodeficiency virus, preliminary positive, awaiting confirmation and viral load. 8. Elevated liver transaminases. 9. Substance abuse. 10. Oral thrush. DISPOSITION: The patient was discharged. DISCHARGE MEDICATIONS: Levaquin 500 mg daily x5 days, Flagyl 500 mg q.8 h. x5 days, Valtrex 1000 mg b.i.d. x5 days, and clotrimazole 10 mg zohaib 10 mg oral five times a day. Suhail Manzo M.D. I have been assigned to dictate discharge summary on this account and I was not involved in the patient's management. Lida Cummins N.P. DR: HENNA JOB#: [id number] CC: ADAM
== END 2017-02-02 17:30 | disposition home or self-care (01) | DRG 682 ==
LOC: EDBD 02:05 → EMR 02:15 → ICU 10:00 → EDBEDREQSVC 12:07 → EDBEDREQ 12:08 → 4E 01-30 10:37
DX: N17.9 Acute kidney failure, unspecified (principal); G92 Toxic encephalopathy; M62.82 Rhabdomyolysis; B37.0 Candidal stomatitis; F15.20 Other stimulant dependence, uncomplicated; E86.0 Dehydration; R79.89 Other specified abnormal findings of blood chemistry; R41.82 Altered mental status, unspecified; F11.10 Opioid abuse, uncomplicated; Z59.0 Homelessness; B19.20 Unspecified viral hepatitis C without hepatic coma; K52.9 Noninfective gastroenteritis and colitis, unspecified
CPT/HCPCS: 36415; 70450; 71010; 74176; 76775; 80048; 80053; 80076; 80307; 80329; 81001; 81003; 82009; 82248; 82306; 82550; 82553; 82607; 82977; 83605; 83615; 83735; 83880; 83930; 84100; 84133; 84207; 84300; 84484; 84550; 85007; 85025; 85610; 85651; 86039; 86140; 86360; 86592; 86689; 86703; 86704; 86705; 86708; 86709; 86803; 87040; 87081; 87340; 87491; 87517; 87522; 87536; 87590; 89050; 93005; 99285

== ENCOUNTER 2018-09-29 02:46 | Emergency (ER) | payer MEDICAID ==
[~2018-09-29] VITALS: Ht 167.6 cm; Wt 81.2 kg
[2018-09-29 02:46] VITALS: BP 135/110
[~2018-09-29 02:46] MED LIST changes: +LEVAQUIN500 MG ORAL; +METRONIDAZOLE500 MG ORAL; +MYCELEX TROCHE10 MG ORAL; +UNOBMED; +VALACYCLOVIR500 MG ORAL
--- NOTE | 2018-09-29 02:46 | NUR ---
ED Nurse Note: patient arrived by his bicycle accompanied by a friend. per patient, he shot up meth to his left arm vein, but also is not sure if it was exactly meth. C/O abdominal pain 12/15. Alert x4, ambulatory. BP 135/110, t 97.1, rr 29, Hr 81. Bed is in lowest position. safety measures ensured. will continue to monitor
--- NOTE | 2018-09-29 02:58 | NUR ---
Pts belongings/bicycle has been placed in locker #2 in dirty utlities room
--- NOTE | 2018-09-29 03:00 | NUR ---
ED Nurse Note: Patient unable to void, unsuccesful with straight cath. MD made aware. instructed patient to void when he is ready. patient verbalized understanding.
[2018-09-29] MEDS ORDERED: DiphenhydrAMINE 50mg/ml Inj ONE (03:26)
[2018-09-29] MEDS ORDERED: Metoclopramide 10mg/2ml Inj ONE (03:26)
[2018-09-29] MEDS ORDERED: Metoclopramide 10mg/2ml Inj IVP ONE (03:30)
[2018-09-29] MEDS ORDERED: DiphenhydrAMINE 50mg/ml Inj IVP ONE (03:30)
--- NOTE | 2018-09-29 03:45 | Emergency Room Report ---
History of Present Illness General Chief Complaint: Substance Abuse Source: Patient Present Illness HPI 33-year-old male history of polysubstance abuse presents with recent methamphetamine use, patient endorses nausea, vomiting, no chest pain, no shortness of breath, symptoms started prior to arrival, exacerbated by methamphetamine, he thinks it was spike, no alleviating factors, no chest pain, no abdominal pain Allergies: Coded Allergies: PENICILLINS (Unverified Allergy, Unknown, 01/28/17) Patient History Past Medical History: see triage record Social History: Reports: drug use Reviewed Nursing Documentation: PMH: Agreed; PSxH: Agreed Nursing Documentation-PMH Past Medical History: No Stated History Review of Systems Constitutional: Denies: chills, fever Eye: Denies: blurred vision, double vision ENT: Denies: throat pain, nasal discharge Respiratory: Denies: cough, shortness of breath Cardiovascular: Denies: chest pain, palpitations Gastrointestinal: Reports: nausea, vomiting; Denies: abdominal pain, diarrhea Genitourinary: Denies: dysuria, pain Musculoskeletal: Denies: back pain, muscle pain Skin: Denies: rash, lesions Neurological: Denies: headache, focal weakness Hematologic/Lymphatic: Denies: easy bleeding, easy bruising All Other Systems: negative except mentioned in HPI Physical Exam Vital Signs Date Time Temp Pulse Resp B/P (MAP) Pulse Ox O2 Delivery O2 Flow Rate FiO2 09/29/18 02:46 80 16 Room Air 100 09/29/18 02:46 97.2 135/110 100 Sp02 EP Interpretation: reviewed, normal General Appearance: well appearing, no apparent distress, alert Head: normocephalic, atraumatic Eyes: bilateral eye PERRL, bilateral eye EOMI ENT: uvula midline, moist mucus membranes Neck: supple, thyroid normal, supple/symm/no masses Respiratory: lungs clear, no respiratory distress, no retraction, no accessory muscle use Cardiovascular #1: normal peripheral pulses, regular rate, rhythm, no edema, no gallop, no murmur Gastrointestinal: non tender, soft, no guarding, no rebound Musculoskeletal: normal inspection Neurologic: alert, oriented x3 Psychiatric: mood/affect normal Skin: no rash, warm/dry Medical Decision Making Diagnostic Impression: Primary Impression: Substance abuse ER Course Presents with acute nausea and vomiting secondary to methamphetamine use, patient in no acute distress, [facility], there may be secondary gain, Zofran was given, fluids were given, will p.o. challenge and disposition patient home with return precautions P.o. challenge successful, disposition home, Last Vital Signs Date Time Temp Pulse Resp B/P (MAP) Pulse Ox O2 Delivery O2 Flow Rate FiO2 09/29/18 02:46 97.2 80 18 135/110 (118) 100 Room Air 09/29/18 02:46 100 Disposition: HOME, SELF-CARE Condition: Improved Referrals: NOT CHOSEN IPA/,REFERRING (PCP) Patient Instructions: Stimulant Use Disorder-Methamphetamines, Substance Use Disorder Additional Instructions: The patient was provided with discharge instructions, notified to follow-up with a primary care doctor and or specialist in the next 24-48 hours, and to return to the ED if they have worsening of their symptoms. Please note that this report is being documented using [employer] technology. This can lead to erroneous entry secondary to incorrect interpretation by the dictating instrument. Skinny Ramos MD Sep 29, 2018 03:45
[2018-09-29 06:09] VITALS: BP 112/74
--- NOTE | 2018-09-29 06:09 | NUR ---
ER DISCHARGE NOTE: Patient is cleared to be discharged per ERMD, pt is aox4, on room air, with stable vital signs. pt was given dc instructions, pt was able to verbalize understanding, pt id band and iv site removed without complications. pt is able to ambulate with steady gait. pt took all belongings.
== END 2018-09-29 07:13 | disposition home or self-care (01) ==
LOC: EMR 03:15
DX: F15.10 Other stimulant abuse, uncomplicated (principal); R11.2 Nausea with vomiting, unspecified; Z88.0 Allergy status to penicillin
CPT/HCPCS: 80307; 96361; 96374; 96375; 99284; J1200; J2405; J2765

== ENCOUNTER 2018-10-09 12:54 | Emergency (ER) | payer OTHER ==
[~2018-10-09] VITALS: Ht 172.7 cm; Wt 77.1 kg
[2018-10-09] MEDS ORDERED: LORazepam Inj 2mg/ml 1ml IM ONE (13:00)
[2018-10-09] MEDS ORDERED: Haloperidol 5mg/ml Inj IM ONE (13:00)
--- NOTE | 2018-10-09 13:11 | NUR ---
ED Nurse brought in to ER by ambulance and accompanied by [employer] #[id number] due to behavioral complaints. per EMS, pt started reporting SOB in ambulance on the way to ER. pt agitated, cursing, kicking, spitting, and trying to hit staff and [employer]. pt is on handcuff and poor hygiene and skin flushed. will start care after pt calm down. unable to obtain vital signs and initiate care due to agitation at this moment.
--- NOTE | 2018-10-09 13:20 | NUR ---
ED Nurse Note: Patient agreed with cooperating with assessment. assessment including vital signs updated.
[2018-10-09 13:21] VITALS: BP 116/78
[2018-10-09] MEDS ORDERED: Neosporin Oint Ud Pkt TOPIC ONE (13:45)
[2018-10-09 13:54] VITALS: BP 116/78
--- NOTE | 2018-10-09 13:56 | NUR ---
ER DISCHARGE NOTE: Patient is cleared to be discharged per ERPA, pt is aox4, accompanied by [employer], on room air, with stable vital signs. pt was given dc instructions with halfway clearance, pt and [employer] were able to verbalize understanding, pt id band removed. pt is able to ambulate with steady gait with handcuff on. pt took all belongings.
--- NOTE | 2018-10-09 16:10 | Emergency Room Report ---
History of Present Illness General Chief Complaint: Behavioral Complaint Source: Patient, EMS, Law Enforcement Present Illness HPI Patient is a 33-year-old male brought in by ambulance in custody here for medical clearance. Per law enforcement, the patient was being placed under arrest and then became agitated and then complained of shortness of breath. He has a stated history of schizophrenia. Please officers state that the patient sustained some abrasions to the face and left forearm while being placed under arrest. No other known injury. He denies CP or other symptoms Allergies: Coded Allergies: NALOXONE (Verified Allergy, Unknown, 10/09/18) Uncoded Allergies: PCN (Allergy, Unknown, 10/09/18) Patient History Past Medical History: see triage record Pertinent Family History: none Reviewed Nursing Documentation: PMH: Agreed; PSxH: Agreed Nursing Documentation-PMH Past Medical History Deferred: Pt Cognitively Impaired Past Medical History: Deferred Review of Systems All Other Systems: negative except mentioned in HPI Physical Exam Vital Signs Date Time Temp Pulse Resp B/P (MAP) Pulse Ox O2 Delivery O2 Flow Rate FiO2 10/09/18 13:21 86 16 Room Air 10/09/18 13:21 97.7 116/78 98 Sp02 EP Interpretation: reviewed, normal General Appearance: no apparent distress, alert, GCS 15, non-toxic Head: normocephalic, atraumatic Respiratory: chest non-tender, lungs clear, normal breath sounds, no rhonchi, no wheezing, speaking full sentences Cardiovascular #1: regular rate, rhythm, no edema Gastrointestinal: non tender, soft, non-distended, no guarding, no rebound Genitourinary: normal inspection Musculoskeletal: back normal, gait/station normal, normal range of motion, non- tender Neurologic: alert, responsive, sensory intact Psychiatric: no suicidal/homicidal ideation, other - anxious, aggrevated Skin: no rash, abrasion - L eblow and facial Medical Decision Making PA Attestation Dr. Ramos is my supervising physician. Patient management was discussed with my supervising physician Diagnostic Impression: Primary Impression: Medical clearance for incarceration Additional Impressions: Multiple abrasions Behavioral disorder ER Course Patient is a 33-year-old male brought in by ambulance in custody here for medical clearance Differential diagnoses considered but not limited to schizophrenia, bipolar disorder, drug abuse, malingering, among others PE: Tachycardia and tachypnea upon arrival. Vitals all WNL at time of DC Agited, anxious, combative. RRR. No MRG. Lungs CTA bilat. No wheezing, rhonchi, or rales Abd soft and non tender Abrasions to face and L elbow Abrasions were cleaned and Neosporin applied 1mg ativan and 5mg haldol given. pt appears much more relaxed now. Able to cooperate. He is medically cleared and DC'ed to law enforcement. ER precautions given Last Vital Signs Date Time Temp Pulse Resp B/P (MAP) Pulse Ox O2 Delivery O2 Flow Rate FiO2 10/09/18 13:54 97.7 86 16 116/78 98 Room Air Status: improved Disposition: D/C TO LAW ENFORCEMENT IN CUST Condition: Improved Departure Forms: Senior Living Clearance Patient Instructions: Schizophrenia Additional Instructions: I discussed my findings with the patient. All questions and concerns have been answered. Treatment and medication compliance have been addressed. I advised the patient that they need to follow up with primary doctor. Seek medical attention urgently if symptoms worsen, new symptoms arise, or if needed for any reason. Patient verbalized understanding of discharge instructions. LIANA RODRIGUEZ Oct 09, 2018 16:10
== END 2018-10-09 18:00 ==
LOC: EDUNIT# 12:54 → EMR 16:36
DX: S00.81XA Abrasion of other part of head, initial encounter (principal); S50.312A Abrasion of left elbow, initial encounter; X58.XXXA Exposure to other specified factors, initial encounter; Y93.9 Activity, unspecified; Y92.9 Unspecified place or not applicable; Z88.0 Allergy status to penicillin; Z88.8 Allergy status to other drugs, medicaments and biological substances; F20.9 Schizophrenia, unspecified; R45.1 Restlessness and agitation; R06.02 Shortness of breath; R00.0 Tachycardia, unspecified
CPT/HCPCS: 96372; 99283; J1630